=== PATIENT | female | born 1965 | race African-American/Black ===

== ENCOUNTER 2021-06-26 03:37 | Emergency (ER) | payer MEDICARE, MEDICAID, SELFPAY ==
--- NOTE | ~2021-06-26 | CT_ITS ---
EXAMINATION: CT abdomen pelvis w con EXAM DATE: 06/26/2021 06:01 INDICATION: Upper abdominal pain, nausea and vomiting. History of diverticulosis. TECHNIQUE: Spiral CT of the abdomen and pelvis was performed following intravenous injection of 100 m L Omnipaque 350. Axial, coronal and sagittal images of the abdomen and pelvis were reviewed. The do se-length product (DLP) for this examination was 1518.34 mGy-cm. The exposure was tailored according to patient size (auto mA exposure control), and iterative reconstruction (ASIR) was used as addition al dose reduction technique. There is no prior study for comparison. FINDINGS: There is a mesenteric mass measuring 2.3 cm within the central aspect of the mesentery, dif ferential diagnosis including mesenteric carcinoid, lymphadenopathy, sclerosing mesenteritis. No spic ulations or calcifications within this. No other mesenteric masses, abdominal or pelvic lymphadenopat hy. There is a single loop of small bowel which may have mild wall thickening along its mesentery, with m ild edema within the mesentery supplying this. This could be related to the mesenteric mass. The liver, spleen, adrenal glands and pancreas are unremarkable. Gallbladder is unremarkable. No bi liary obstruction. Portal and splenic veins are patent. Kidneys enhance symmetrically. There is no hydronephrosis. The uterus is not identified and has likely been surgically resected. The bladder is unremarkable. Small umbilical fat-containing hernia. The appendix is normal. There are surgical changes consistent with gastric sleeve procedure. There i s a rectosigmoid anastomosis. There is expected amount of colonic stool. No free intraperitoneal ga s. The heart is normal in size. There are no pericardial or pleural effusions. The lung bases are unremarkable. There are no osteoblastic or osteolytic lesions identified. IMPRESSION: 1. Mesenteric mass, could be carcinoid tumor with other benign or malignant possibilities include sc lerosing mesenteritis, lymphadenopathy. 2. Single loop of small bowel with mild wall thickening distal to the mesenteric mass. 3. No acute intra-abdominal findings. Case was discussed with Dr. Nikko Howard MD, patient has had multiple surgeries at [facility]. Comparing this study to those examinations would be helpful to determine interval g rowth or development of mesenteric mass, but probably does not change the differential diagnosis. Reviewed, dictated and finalized at location A. IMPRESSION: 1. Mesenteric mass, could be carcinoid tumor with other benign or malignant po ssibilities include sclerosing mesenteritis, lymphadenopathy. 2. Single loop of small bowel with mild wall thickening distal to the mesenter ic mass. 3. No acute intra-abdominal findings. Case was discussed with Dr. Nikko Howard MD, patient has had multip le surgeries at [facility]. Comparing this study to those examinati ons would be helpful to determine interval growth or development of mesenteric mass, but probably does not change the differential diagnosis.
[2021-06-26 03:39] VITALS: BP 162/92; PULSE 60; RESP 21; TEMP 36.8; O2SAT 100
--- NOTE | 2021-06-26 04:45 | PC.NURSE ---
attempted IV insertion and was unsuccessful. another RN in room attempting IV insertion.
[2021-06-26] MEDS: SODIUM CHLORIDE 0.9% IV 1,000 ML 999 ML IV CONT (04:54)
[2021-06-26] MEDS: ONDANSETRON INJ 4 MG/2 ML VIAL IV PUSH (04:55)
[2021-06-26] MEDS: HYDROmorphone HCL INJ (*CRX) 1 MG/ML SYR IV PUSH (04:57)
[2021-06-26 05:17] LABS: Basophils Percent Auto 0.5 % (0.2-1.2); Eosinophils Percent Auto 0.7 % (0-4.4); Hematocrit 42.4 % (37.0-47.0); Immature Granulocyte Absolute 0.01 K/mm3 (0.00-0.031); Immature Granulocyte Percent A 0.2 % (0-0.5); Lymphocytes Absolute Auto 1.73 K/mm3 (0.9-3.2); Lymphocytes Percent Auto 28.7 % (18.3-44.2); Mean Corpuscular HGB Conc 30.7 g/dl (32-36); Mean Corpuscular Hemoglobin 29.3 pg (26-34); Mean Corpuscular Volume 95.5 fl (80-100); Mean Platelet Volume 10.1 fl (7.4-10.4); Monocytes Absolute Auto 0.5 K/mm3 (0.1-0.6); Neutrophils Absolute Auto 3.7 K/mm3 (1.3-6.7); Neutrophils Percent Auto 60.9 % (45.5-73.1); Platelet Count Result 202 k/mm3 (150-375); Red Blood Count 4.44 M/mm3 (4.2-5.4); Red Cell Distribution Width 15.7 % (11.5-14.5)
--- NOTE | 2021-06-26 05:25 | ED.GENADULT ---
HPI - General Adult General Chief complaint: Abdominal Pain Stated complaint: abd pain Time Seen by Provider: 06/26/21 04:07 History of Present Illness HPI narrative: Patient 55-year-old female presents to emergency department complaint of abdominal pain. Patient reports she has history of diverticulitis and is actually had to have a bowel resection secondary to diverticulitis. Patient states that today she started having pain worse in the epigastrium not improved by anything reports that she had nausea and vomiting with this reports she had a normal bowel movement denies any blood in her stool. Patient states this feels similar to when she had diverticulitis in the past. Patient reports that her surgeries were done at [facility] Medications Medication Instructions Recorded Confirmed albuterol sulfate 2 mg tablet 2 mg PO Q8H 03/25/21 03/25/21 cyclobenzaprine 10 mg tablet 10 mg PO BID tablet 03/25/21 03/25/21 ferrous gluconate 324 mg (38 mg 324 mg PO DAILY 03/25/21 03/25/21 iron) tablet hydrochlorothiazide 25 mg tablet 25 mg PO DAILY 03/25/21 03/25/21 hydrocodone 10 mg-chlorpheniramine 5 ml PO Q12H PRN 03/25/21 03/25/21 8 mg/5 mL oral susp extend.rel 12hr tizanidine 2 mg capsule 2 mg PO QHS 03/25/21 03/25/21 Allergies Allergy/AdvReac Type Severity Reaction Status Date / Time fluticasone [From Flonase] Allergy Mild Unknown Verified 06/26/21 03:51 Review of Systems Review of Systems: A 10 system review of systems was completed on the patient and is negative except for what is stated in the HPI. Nursing and ancillary documentation was reviewed. [facility] Past Medical History Medical History Arthritis Asthma Diverticulitis Family History Family History Mother Hypertension Father Hypertension Social History Social History Smoking status: Never smoker Alcohol intake: never Substance use: never Exam Narrative: GENERAL: Well-appearing, well-nourished, and in no acute distress. HEAD: Normocephalic, atraumatic. EYES: PERRLA and EOMI. ENT: Nares clear, no rhinorrhea or epistaxis. Mucous membranes moist. NECK: Supple. CHEST: Clear to auscultation. No respiratory distress. HEART: Regular rate and rhythm. No murmur heard. Normal peripheral pulses. ABDOMEN: Soft, diffusely tender to palpation, nondistended, normal active bowel sounds. EXTREMITIES: Normal range of motion. No edema. SKIN: Warm, dry, no rash. NEURO: No focal deficits. Alert and oriented x3. PSYCH: Normal mood and affect. Course Course Emergency Course: CT scan shows no evidence of bowel obstruction. There is evidence of enteritis. Vital Signs Vital signs: Vital Signs Temperature 36.8 C 06/26/21 03:39 Pulse Rate 60 06/26/21 03:39 Respiratory Rate 21 H 06/26/21 03:39 Blood Pressure 162/92 H 06/26/21 03:39 Pulse Oximetry 100 06/26/21 03:39 Temperature 36.8 C 06/26/21 03:39 Pulse Rate 59 L 06/26/21 05:53 Respiratory Rate 20 06/26/21 05:53 Blood Pressure 167/87 H 06/26/21 05:53 Pulse Oximetry 100 06/26/21 05:53 Medical Decision Making Vital Signs Vital Signs: Vital Signs Temperature 36.8 C 06/26/21 03:39 Pulse Rate 60 06/26/21 03:39 Respiratory Rate 21 H 06/26/21 03:39 Blood Pressure 162/92 H 06/26/21 03:39 Pulse Oximetry 100 06/26/21 03:39 Temperature 36.8 C 06/26/21 03:39 Pulse Rate 59 L 06/26/21 05:53 Respiratory Rate 20 06/26/21 05:53 Blood Pressure 167/87 H 06/26/21 05:53 Pulse Oximetry 100 06/26/21 05:53 Lab Data Result diagrams: 06/26/21 05:11 06/26/21 05:11 Labs: Lab Results 06/26/21 06/26/21 06/26/21 Range/Units 05:11 05:11 05:21 WBC 6.0 (4.5-10.0) K/mm3 RBC 4.44 (4.2-5.4) M/mm3 Hgb 13.0 (12.0-15.0
[2021-06-26 05:28] LABS: Alanine Aminotransferase 22 U/L (4-35); Albumin Level 4.1 g/dL (3.5-5.1); Alkaline Phosphatase 77 U/L (38-126); Anion Gap 2 mmol/L (8-16); Aspartate Amino Transferase 27 U/L (14-36); Bilirubin,Total 0.4 mg/dL (0.2-1.3); Blood Urea Nitrogen 14 mg/dL (7-17); Calcium 9.3 mg/dL (8.4-10.2); Carbon Dioxide 28 mmol/L (22-30); Chloride 107 mmol/L (98-107); Estimated CRCL calculation 132 ml/min; Estimated Glomerular Filt Rate > 60; Glucose 124 mg/dL (65-110); Lipase 67 U/L (23-300); Magnesium 2.3 mg/dL (1.6-2.3); Potassium 3.9 mmol/L (3.4-5.0); Sodium 137 mmol/L (137-145)
[2021-06-26 05:39] LABS: Lactic Acid Reflex 1.1 mmol/L (0.7-2.1)
[2021-06-26 05:50] LABS: Add Urine Microscopic? NO; Appearance Urine Clear (Clear); Bilirubin Urine Negative (Negative); Blood Urine Negative (Negative); Color Urine Yellow (Yellow); Glucose Urine UA Negative (Negative); Ketones Urine Negative (Negative); Leukocyte Esterase Ur Negative LEU/UL (Negative); Nitrate Urine Negative (Negative); Protein Urine Negative (Negative); Specific Grav Ur 1.019 (1.001-1.035); Urobilinogen Urine Negative mg/dL (<2.0)
[2021-06-26 05:53] VITALS: BP 167/87; PULSE 59; RESP 20; O2SAT 100
[2021-06-26] MEDS: MORPHINE SULFATE (*CRX) 4 MG/ML INJ IV PUSH (07:00)
[2021-06-26 07:45] VITALS: BP 122/94; PULSE 60; RESP 18; O2SAT 100
== END 2021-06-26 07:45 | disposition home or self-care (01) ==
PROVIDERS: Emergency Provider Emergency Medicine; PCP Family Medicine
DX: K52.9 Noninfective gastroenteritis and colitis, unspecified (principal); R10.84 Generalized abdominal pain; J45.909 Unspecified asthma, uncomplicated; M19.90 Unspecified osteoarthritis, unspecified site; R19.09 Other intra-abdominal and pelvic swelling, mass and lump; Z90.49 Acquired absence of other specified parts of digestive tract; Z98.84 Bariatric surgery status
CPT/HCPCS: 36415; 74177; 80053; 81003; 83605; 83690; 83735; 85025; 96361; 96374; 96375; 99284; 99285; J1170; J2270; J2405; J7030; Q9967

== ENCOUNTER 2021-12-01 10:09 | Emergency (ER) | payer MEDICARE, MEDICAID, SELFPAY ==
--- NOTE | ~2021-12-01 | CT_ITS ---
EXAMINATION: CT abdomen pelvis w con DATE: 12/01/2021 13:58 INDICATION: Epigastric pain. Previous gastric sleeve surgery. History of diverticulitis. TECHNIQUE: Computed tomography (CT) of the abdomen and pelvis was performed with 100 cc Omnipaque 350 intravenous contrast. The dose-length product was 1395.36 mGy-cm. Automated exposure control and ite rative reconstruction technique were employed. COMPARISON: CT dated 06/26/2021 FINDINGS: Lung bases are unremarkable. No significant pleural or pericardial effusion. Heart size nor mal. The liver, spleen, pancreas, adrenal glands and kidneys are unremarkable. Gallbladder is present. No significant vascular abnormalities. There are are surgical changes of the anterior abdominal wall con sistent with previous laparotomy with multiple small hernias containing fat. There is mild stranding of the mesentery, likely postsurgical. There are surgical changes with prior gastric sleeve surgery. Nonobstructive bowel gas pattern. Colonic diverticulosis. There is a distal colonic surgical anastomo sis. No evidence for acute diverticulitis. No free air or free fluid. There is mild lower thoracic an d lumbar spondylosis. IMPRESSION: 1. No acute abdominal abnormality. 2: Postoperative changes likely from soft tissue nodule resection in the mesentery seen on prior exam ination. There are multiple small associated ventral hernias along the incision line containing fat. Reviewed, dictated and finalized at location A. IMPRESSION: 1. No acute abdominal abnormality. 2: Postoperative changes likely from soft tissue nodule resection in the mesent luciana seen on prior examination. There are multiple small associated ventral matthias ias along the incision line containing fat.
[2021-12-01 10:35] VITALS: BP 124/82; PULSE 60; RESP 16; TEMP 36.3; O2SAT 100
[2021-12-01 11:20] LABS: Basophils Percent Auto 0.3 % (0.2-1.2); Eosinophils Absolute Auto 0.1 K/mm3 (0-0.3); Eosinophils Percent Auto 1.3 % (0-4.4); Hematocrit 43.1 % (37.0-47.0); Hemoglobin 13.6 g/dL (12.0-15.0); Immature Granulocyte Absolute 0.02 K/mm3 (0.00-0.031); Immature Granulocyte Percent A 0.3 % (0-0.5); Lymphocytes Absolute Auto 2.21 K/mm3 (0.9-3.2); Lymphocytes Percent Auto 31.8 % (18.3-44.2); Mean Corpuscular HGB Conc 31.6 g/dl (32-36); Mean Corpuscular Volume 95.1 fl (80-100); Mean Platelet Volume 9.8 fl (7.4-10.4); Monocytes Absolute Auto 0.6 K/mm3 (0.1-0.6); Monocytes Percent Auto 9.1 % (2.6-8.5); Neutrophils Percent Auto 57.2 % (45.5-73.1); Platelet Count Result 231 k/mm3 (150-375); Red Blood Count 4.53 M/mm3 (4.2-5.4); Red Cell Distribution Width 14.1 % (11.5-14.5)
[2021-12-01 11:23] LABS: Add Urine Microscopic? NO; Appearance Urine Clear (Clear); Bilirubin Urine Negative (Negative); Blood Urine Negative (Negative); Color Urine Straw (Yellow); Glucose Urine UA Negative (Negative); Ketones Urine Negative (Negative); Leukocyte Esterase Ur Negative LEU/UL (Negative); Nitrate Urine Negative (Negative); Protein Urine Negative (Negative); Urobilinogen Urine Negative mg/dL (<2.0)
[2021-12-01 11:29] LABS: Alanine Aminotransferase 51 U/L (4-35); Alkaline Phosphatase 102 U/L (38-126); Anion Gap 4 mmol/L (8-16); Aspartate Amino Transferase 34 U/L (14-36); Bilirubin,Total 0.6 mg/dL (0.2-1.3); Blood Urea Nitrogen 16 mg/dL (7-17); Calcium 8.8 mg/dL (8.4-10.2); Carbon Dioxide 32 mmol/L (22-30); Chloride 102 mmol/L (98-107); Estimated CRCL calculation 111 ml/min; Estimated Glomerular Filt Rate > 60; Glucose 92 mg/dL (65-110); Lipase 101 U/L (23-300); Potassium 4.1 mmol/L (3.4-5.0); Sodium 138 mmol/L (137-145)
--- NOTE | 2021-12-01 12:25 | ED.ABDPAIN ---
HPI - Abdominal Pain General Chief Complaint: Abdominal Pain Stated Complaint: epigastric pain since yesterday Time Seen by Provider: 12/01/21 12:24 Source: patient Mode of arrival: ambulatory Limitations: no limitations History of Present Illness HPI narrative: Patient is 55 years old -[place] female presented to the ED complaining of epigastric pulling kind of pain, intermittent, worse with sitting and standing, better laying down flat. History of gastric sleeve 1 year ago. Lymphedema. Patient does note smoke or drink or uses drugs. Related Data Home Medications Medication Instructions Recorded Confirmed albuterol sulfate 2 mg tablet 2 mg PO Q8H 03/25/21 03/25/21 ferrous gluconate 324 mg (38 mg 324 mg PO DAILY 03/25/21 03/25/21 iron) tablet hydrochlorothiazide 25 mg tablet 25 mg PO DAILY 03/25/21 03/25/21 tizanidine 2 mg capsule 2 mg PO QHS 03/25/21 03/25/21 Allergies Allergy/AdvReac Type Severity Reaction Status Date / Time fluticasone [From Flonase] Allergy Mild Unknown Verified 06/26/21 03:51 Review of Systems Review of Systems: CONSTITUTIONAL: Denies fever, chills, or sweats. EYES: Denies visual changes, redness, or discharge. ENT: Denies rhinorrhea, congestion, sore throat, or otalgia. CARDIOVASCULAR: Denies chest pain, palpitations, or edema. RESPIRATORY: Denies cough or dyspnea. GASTROINTESTINAL: Denies abdominal pain, nausea, vomiting, or diarrhea. GENITOURINARY: Denies dysuria or hematuria. SKIN: Denies rash or itching. MUSCULOSKELETAL: Denies back pain, joint pain, or myalgia. NEUROLOGIC: Denies headache, numbness, or weakness. PSYCHIATRIC: Denies anxiety or depression. PMFSH Past Medical History Medical History Arthritis Asthma Diverticulitis Family History Family History Mother Hypertension Father Hypertension Social History Social History Smoking status: Never smoker Alcohol intake: never Substance use: never Exam Narrative: General appearance: Well-developed, well-nourished Skin: Normal color Head: Normocephalic, nontraumatic Eyes: Clear conjunctiva ENT: Oropharynx normal, ears normal, nose normal Neck: Supple, nontender Chest and respiratory: Airway patent, no respiratory distress, no accessory muscle use Heart: Regular rate/rhythm Abdomen: Soft, masslike feeling and diffuse tenderness left upper quadrant., no organomegaly, quiet bowel sounds Vascular: Normal peripheral pulses, normal capillary refill. 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 Differential diagnosis as below Differential Diagnosis Differential diagnosis: Likely abdominal pain, constipation, diverticulitis, pancreatitis, small bowel obstruction and other (Gastric bypass disorder) Lab Data Result diagrams: 12/01/21 11:10 12/01/21 11:10 Labs: Lab Results 12/01/21 12/01/21 12/01/21 Range/Units 11:10 11:10
[2021-12-01] MEDS: SODIUM CHLORIDE 0.9% IV 1,000 ML 999 ML IV CONT (12:54)
[2021-12-01 13:37] VITALS: BP 140/99; PULSE 109; RESP 16; O2SAT 98
== END 2021-12-01 17:21 | disposition home or self-care (01) ==
PROVIDERS: Emergency Medicine; Emergency Provider Emergency Medicine; PCP Family Medicine
DX: R10.13 Epigastric pain (principal); M19.90 Unspecified osteoarthritis, unspecified site; J45.909 Unspecified asthma, uncomplicated; K43.9 Ventral hernia without obstruction or gangrene
CPT/HCPCS: 36415; 74177; 80053; 81003; 83690; 85025; 96360; 99284; J7030; Q9967

== ENCOUNTER 2023-06-22 08:40 | Emergency (ER) | payer MEDICARE, MEDICAID, SELFPAY ==
--- NOTE | ~2023-06-22 | US_ITS ---
EXAMINATION:US venous doppler LE RT INDICATION:History of fracture. Evaluate for DVT. TECHNIQUE: Multiple grayscale, color flow and Doppler images of the right lower extremity deep venous systems were obtained and reviewed. COMPARISON:No prior studies for comparison. FINDINGS: The common femoral, superficial femoral and popliteal veins demonstrate normal respiratory variation, augmentation and compressibility. Color flow is also seen within the posterior tibial, pe roneal, greater saphenous and profunda veins. IMPRESSION: 1: No lower extremity deep venous thrombosis. Reviewed, dictated and finalized at location L.
--- NOTE | ~2023-06-22 | XR_ITS ---
EXAMINATION: XR foot RT 2V DATE: 06/22/2023 09:58 INDICATION: Right foot injury and swelling and redness. TECHNIQUE: 2 views of right foot were obtained. COMPARISON: None. FINDINGS: Bone alignment is normal. There is a nondisplaced transverse fracture of proximal metaphysi s of fifth proximal phalanx with callus formation. Joint spaces are normal. There is an enthesophyte at plantar aspect of calcaneal tuberosity. IMPRESSION: 1. Healing fracture of fifth proximal phalanx. Reviewed, dictated and finalized at location A.
--- NOTE | ~2023-06-22 | XR_ITS ---
AP and lateral views of the right tibia/fibula Clinical History: Trauma Findings: No acute fracture or dislocation is seen. Osseous alignment is anatomic. Joint spaces are p reserved without significant erosive or degenerative change. There is marked, diffuse soft tissue lilly ma, with possible blisters or superficial fluid collections. There are several scattered soft tissue calcifications. Impression: No osseous or articular abnormality. Extensive soft tissue edema, nonspecific, with possible blisters or superficial fluid collections. Co rrelate with physical exam. Soft tissue calcifications could relate to chronic venous stasis. Reviewed, dictated and finalized at location . Impression: No osseous or articular abnormality. Extensive soft tissue edema, nonspecific, with possible blisters or superficial fluid collections. Correlate with physical exam. Soft tissue calcifications co uld relate to chronic venous stasis.
--- NOTE | ~2023-06-22 | XR_ITS ---
EXAMINATION: XR tibia fibula LT 2V DATE: 06/22/2023 09:58 INDICATION: Left lower leg injury and swelling and redness. TECHNIQUE: 2 views of left tibia and fibula were obtained. COMPARISON: None. FINDINGS: Bone alignment is normal. No fracture. There is mild knee joint osteoarthritis. There is mo derate midfoot osteoarthritis. Calcifications overlie the subcutaneous fat of the lower leg. IMPRESSION: 1. Polyarticular osteoarthritis. Reviewed, dictated and finalized at location A.
[2023-06-22 08:42] VITALS: BP 105/77; PULSE 78; RESP 17; TEMP 36.6; O2SAT 99
[2023-06-22 08:48] VITALS: BP 134/81; PULSE 74; RESP 16; O2SAT 98
[2023-06-22] MEDS: HYDROcodone/acetaminophen (*CRX) 7.5-325 MG TABLET 1 TAB PO (10:02)
--- NOTE | 2023-06-22 10:19 | ED.GENADULT ---
HPI - General Adult General Chief complaint: Extremity Problem,Nontraumatic <Yuri Zamora PA-C - Last Filed: 06/22/23 16:03> Stated complaint: R leg pain <Yuri Zamora PA-C - Last Filed: 06/22/23 16:03> Time Seen by Provider: 06/22/23 09:03 <Yuri Zamora PA-C - Last Filed: 06/22/23 16:03> Source: patient <KELLIE Douglas Last Filed: 06/22/23 16:03> Mode of arrival: ambulatory <KELLIE Douglas Last Filed: 06/22/23 16:03> Limitations: no limitations <KELLIE Douglas Last Filed: 06/22/23 16:03> History of Present Illness HPI narrative: This is a 57-year-old female who presents to the ED with chief complaint of right leg pain since nearly 1 week ago. Reports that she had an injury in which [place] the park. She fell onto the ground and hurt the bilateral lower extremities. She reports increasing pain in the right lower extremity specifically since injury. She was seen at another facility 5 days ago and reports she had negative x-rays there. She has been trying to treat pain with Tylenol with minimal relief. Denies numbness, weakness, any further site of pain or injury. <Yuri Zamora PA-C - Last Filed: 06/22/23 16:03> Related Data Home medications: Home Medications Medication Instructions Recorded Confirmed albuterol sulfate 2 mg tablet 2 mg PO Q8H 03/25/21 03/25/21 ferrous gluconate 324 mg (38 mg 324 mg PO DAILY 03/25/21 03/25/21 iron) tablet hydrochlorothiazide 25 mg tablet 25 mg PO DAILY 03/25/21 03/25/21 tizanidine 2 mg capsule 2 mg PO QHS 03/25/21 03/25/21 <KELLIE Douglas Last Filed: 06/22/23 16:03> Allergies/adverse reactions: Allergies Allergy/AdvReac Type Severity Reaction Status Date / Time fluticasone [From Flonase] Allergy Mild Unknown Verified 06/22/23 08:45 atorvastatin AdvReac Headache Verified 06/22/23 09:34 <Yuri Zamora PA-C - Last Filed: 06/22/23 16:03> Review of Systems Review of Systems: All systems as dictated in HPI <Yuri Zamora PA-C - Last Filed: 06/22/23 16:03> PMFSH Past Medical History Medical History: Medical History Arthritis Asthma Diverticulitis <Yuri Zamora PA-C - Last Filed: 06/22/23 16:03> Family History Family History: Family History Mother Hypertension Father Hypertension <Yuri Zamora PA-C - Last Filed: 06/22/23 16:03> Social History Social History: Social History Smoking status: Never smoker Alcohol intake: never Substance use: never <Yuri Zamora PA-C - Last Filed: 06/22/23 16:03> Exam Narrative: GENERAL: Well-appearing, well-nourished, and in no acute distress. HEAD: Normocephalic, atraumatic. EYES: PERRLA and EOMI. ENT: Nares clear, no rhinorrhea or epistaxis. Mucous membranes moist. Oropharynx without tonsillar hypertrophy exudate or other lesions. NECK: Supple. No adenopathy or masses. CHEST: No respiratory distress. Clear to auscultation. No wheezes rales or rhonchi HEART: Regular rate and rhythm. No murmur heard. Normal peripheral pulses. ABDOMEN: Soft, nontender, nondistended, normal active bowel sounds. MSK: Chronically appearing edematous bilateral lower extremities. Right lower extremity: Tenderness throughout the right tib-fib area. Tenderness in the right foot distally. Neurovascularly intact distally. Soft compartments throughout the extremity. No deformity Left lower extremity: Tenderness throughout the left tib-fib area as well. No tenderness throughout the left foot. No deformity. Soft compartments. SKIN: Bruising throughout the right foot, right lower extremity. Old blisters noted to the right lower extremity. NEURO: Alert and oriented x3. No focal deficits. PSYCH: Normal mood and affect. <Yuri Zamora PA-C - Last Fi
[2023-06-22 10:55] LABS: Basophils Absolute Auto 0.1 K/mm3 (0.0-0.1); Basophils Percent Auto 0.6 % (0.2-1.2); Eosinophils Absolute Auto 0.1 K/mm3 (0-0.3); Eosinophils Percent Auto 1.8 % (0-4.4); Hematocrit 40.6 % (37.0-47.0); Hemoglobin 12.2 g/dL (12.0-15.0); Immature Granulocyte Absolute 0.02 K/mm3 (0.00-0.031); Immature Granulocyte Percent A 0.3 % (0-0.5); Lymphocytes Absolute Auto 2.48 K/mm3 (0.9-3.2); Mean Corpuscular Hemoglobin 28.9 pg (26-34); Mean Corpuscular Volume 96.2 fl (80-100); Mean Platelet Volume 9.7 fl (7.4-10.4); Monocytes Absolute Auto 0.8 K/mm3 (0.1-0.6); Monocytes Percent Auto 10.1 % (2.6-8.5); Neutrophils Absolute Auto 4.5 K/mm3 (1.3-6.7); Neutrophils Percent Auto 56.2 % (45.5-73.1); Platelet Count Result 238 k/mm3 (150-375); Red Blood Count 4.22 M/mm3 (4.2-5.4); Red Cell Distribution Width 15.2 % (11.5-14.5)
[2023-06-22 11:18] LABS: Alanine Aminotransferase 15 U/L (6-35); Albumin Level 3.9 g/dL (3.5-5.1); Alkaline Phosphatase 80 U/L (38-126); Anion Gap 7 mmol/L (8-16); Aspartate Amino Transferase 21 U/L (14-36); Bilirubin,Total 0.8 mg/dL (0.2-1.3); Blood Urea Nitrogen 21 mg/dL (7-17); CRP 1.3 mg/dL (<1.0); Calcium 8.7 mg/dL (8.4-10.2); Carbon Dioxide 28 mmol/L (22-30); Chloride 102 mmol/L (98-107); Estimated CRCL calculation 102 ml/min; Estimated Glomerular Filt Rate > 60; Glucose 73 mg/dL (65-110); Potassium 4.5 mmol/L (3.4-5.0); Sodium 137 mmol/L (137-145)
[2023-06-22 11:27] VITALS: BP 138/83; PULSE 67; RESP 17; O2SAT 100
[2023-06-22] MEDS: ceFAZolin 1 GM/NS 50 ML 1 GM/50 ML BAG IVPB (11:45)
[2023-06-22] MEDS: MORPHINE SULFATE (*CRX) 4 MG/ML INJ IV PUSH (11:45)
[2023-06-22 12:16] VITALS: BP 131/95; PULSE 66; RESP 16; O2SAT 100
== END 2023-06-22 12:45 | disposition home or self-care (01) ==
PROVIDERS: Emergency Provider Physician Assistant; PCP Family Medicine
DX: L03.90 Cellulitis, unspecified (principal); S92.501A Displaced unspecified fracture of right lesser toe(s), initial encounter for closed fracture; M19.90 Unspecified osteoarthritis, unspecified site; J45.909 Unspecified asthma, uncomplicated; W19.XXXA Unspecified fall, initial encounter
CPT/HCPCS: 36415; 73590; 73620; 80053; 85025; 86140; 93971; 96365; 96375; 99284; A9270; J0690; J2270

== ENCOUNTER 2023-06-25 03:37 | Inpatient (IN) | payer MEDICARE, MEDICAID, SELFPAY ==
--- NOTE | ~2023-06-25 | CT_ITS ---
EXAMINATION: CT LE RT w con DATE: 06/29/2023 09:46 INDICATION: Right lower leg cellulitis with drainage TECHNIQUE: High resolution computed tomography (CT) of the right lower leg from the knee through the ankle was performed with 100 mL Omnipaque-350 intravenous contrast. Additional sagittal and coronal r econstructions were performed. Automated exposure control and iterative reconstruction technique were employed. The dose-length product was 969.44 mGy-cm. COMPARISON: Radiographs dated 06/22/2023 FINDINGS: Bone alignment is normal. No fracture. Mild osteoarthritis at the medial and lateral components of th e right knee and at the right ankle. No knee or ankle joint effusion. Small amount of atherosclerotic plaque without hemodynamic significant stenosis along the arteries of the right calf. The anterior t ibial arteries atretic with the dorsalis pedis artery supplied via the peroneal artery. There is also runoff of the posterior tibial artery below the ankle. There is skin thickening and underlying stran ding in the subcutaneous fat along the right calf consistent with provided history of cellulitis. The re are few focal lenticular regions of the subdermal soft tissue density, the largest at the anterola teral distal calf measuring 8.5 x 7.5 cm in extent and up to 2.8 cm thickness. It is unclear whether this represents soft tissue or potentially collection of complex fluid including hemorrhage. There ar e smaller regions of low-density on a similar smaller region at the posterior medial aspect of the di stal calf. There are however no organized peripherally enhancing abscesses. No soft tissue gas. The d eeper musculature compartments are unremarkable. There are multiple heterotopic ossicles the subcutan eous tissues of the right calf and visualized medial aspect of the contralateral left calf likely seq uela of fat necrosis. IMPRESSION: 1. Cellulitis with several focal lenticular regions of soft tissue density contiguous with the skin s urface of the right calf. Unclear whether this represents thickened soft tissue or complex fluid incl uding hematomas. Neoplasm would be unlikely given the multiplicity. Line 2. No soft tissue gas to suggest necrotizing fasciitis or organized peripherally enhancing abscess id entified. Reviewed, dictated and finalized at location A. IMPRESSION: 1. Cellulitis with several focal lenticular regions of soft tissue density cont iguous with the skin surface of the right calf. Unclear whether this represents thickened soft tissue or complex fluid including hematomas. Neoplasm would be unlikely given the multiplicity. Line 2. No soft tissue gas to suggest necrotizing fasciitis or organized peripherall y enhancing abscess identified.
--- NOTE | ~2023-06-25 | US_ITS ---
EXAMINATION: US venous doppler LE RT DATE: 06/25/2023 08:22 INDICATION: Right lower limb edema. TECHNIQUE: Grayscale ultrasound images without and with compression and Doppler ultrasound images of the right lower extremity veins were obtained. COMPARISON: Ultrasound 06/22/2023 FINDINGS: The visualized portions of right common femoral vein, profunda (deep) femoral vein, femoral vein, pop liteal vein, and greater saphenous vein outflow are patent. The calf veins are not evaluated due to t he patient's pain tolerance. IMPRESSION: 1. No deep venous thrombosis. Note that the calf veins were not evaluated at the patient's request b ecause of pain. Reviewed, dictated and finalized at location A. IMPRESSION: 1. No deep venous thrombosis. Note that the calf veins were not evaluated at t he patient's request because of pain.
[2023-06-25 03:41] VITALS: BP 147/82; PULSE 73; RESP 18; TEMP 36.9; O2SAT 100
[2023-06-25 06:23] LABS: Basophils Absolute Auto 0.1 K/mm3 (0.0-0.1); Eosinophils Absolute Auto 0.1 K/mm3 (0-0.3); Eosinophils Percent Auto 2.1 % (0-4.4); Hematocrit 41.8 % (37.0-47.0); Hemoglobin 12.7 g/dL (12.0-15.0); Immature Granulocyte Absolute 0.01 K/mm3 (0.00-0.031); Immature Granulocyte Percent A 0.2 % (0-0.5); Lymphocytes Percent Auto 30.8 % (18.3-44.2); Mean Corpuscular HGB Conc 30.4 g/dl (32-36); Mean Corpuscular Hemoglobin 28.7 pg (26-34); Mean Corpuscular Volume 94.6 fl (80-100); Monocytes Absolute Auto 0.5 K/mm3 (0.1-0.6); Monocytes Percent Auto 8.6 % (2.6-8.5); Neutrophils Absolute Auto 3.5 K/mm3 (1.3-6.7); Neutrophils Percent Auto 57.3 % (45.5-73.1); Platelet Count Result 244 k/mm3 (150-375); Red Blood Count 4.42 M/mm3 (4.2-5.4); Red Cell Distribution Width 14.7 % (11.5-14.5); White Blood Count 6.2 K/mm3 (4.5-10.0)
[2023-06-25 06:28] LABS: Alanine Aminotransferase 14 U/L (6-35); Albumin Level 3.8 g/dL (3.5-5.1); Alkaline Phosphatase 91 U/L (38-126); Anion Gap 4 mmol/L (8-16); Aspartate Amino Transferase 20 U/L (14-36); Bilirubin,Total 0.5 mg/dL (0.2-1.3); Blood Urea Nitrogen 23 mg/dL (7-17); Calcium 8.7 mg/dL (8.4-10.2); Carbon Dioxide 31 mmol/L (22-30); Chloride 104 mmol/L (98-107); Estimated CRCL calculation 117 ml/min; Estimated Glomerular Filt Rate > 60; Glucose 101 mg/dL (65-110); Potassium 3.6 mmol/L (3.4-5.0); Sodium 139 mmol/L (137-145)
--- NOTE | 2023-06-25 07:44 | ED.EXTPRO ---
HPI - Extremity Problem General Chief complaint: Extremity Problem,Nontraumatic Stated complaint: extremity problem Time Seen by Provider: 06/25/23 06:54 History of Present Illness HPI Narrative: 57-year-old female presented to the emergency department for evaluation of persistent right leg pain. Patient had initial injury about 2 weeks ago when she fell at a park. Patient then states she has had a worsening right lower extremity swelling and pain. Patient was seen in the ED a few days ago and diagnosed with cellulitis. Patient was told if she had worsening symptoms she needed to present to the ED for evaluation. Patient states she has developed blisters on the leg and has had significant worsening of the swelling and pain. Related Data Home Medications Medication Instructions Recorded Confirmed albuterol sulfate 2 mg tablet 2 mg PO Q8H 03/25/21 06/25/23 ferrous gluconate 324 mg (38 mg 324 mg PO DAILY 03/25/21 06/25/23 iron) tablet hydrochlorothiazide 25 mg tablet 25 mg PO DAILY 03/25/21 06/25/23 cyclobenzaprine 10 mg tablet 10 mg PO DAILY 06/25/23 06/25/23 furosemide 40 mg tablet (Lasix) 40 mg PO DAILY 06/25/23 06/25/23 multivitamin (Daily Multi-Vitamin 1 tablet PO BID 06/25/23 06/25/23 tablet) potassium chloride 20 mEq 20 meq PO DAILY 06/25/23 06/25/23 tablet,extended release (K-Tab) Allergies Allergy/AdvReac Type Severity Reaction Status Date / Time fluticasone [From Flonase] Allergy Mild Unknown Verified 06/25/23 13:40 atorvastatin AdvReac Headache Verified 06/25/23 13:40 Review of Systems Review of Systems: All systems reviewed & are unremarkable except as noted in HPI and below PMFSH Past Medical History Medical History (Updated 06/25/23 @ 18:07 by Sahil Patel MD) Arthritis Asthma Diverticulitis Esophageal perforation Hypertension Neuroendocrine carcinoma Surgical History Surgical History (Updated 06/25/23 @ 13:01 by Bhavya Jefferson PA-C) History of colon resection For neuroendocrine carcinoma. History of esophageal surgery Repair of accidental perforation during procedure. History of sleeve gastrectomy Family History Family History Mother Hypertension Father Hypertension Social History Social History (Updated 06/25/23 @ 13:02 by Bhavya Jefferson PA-C) Social History: Surrogate medical decision maker: Eladio Garcia, son. Code status: Full code. Smoking status: Never smoker Alcohol intake: never Substance use: never Substance use type: does not use Lack of Transportation: No Lack of Food: Never True Current Housing: I Have Housing Concerned About Future Housing: No Difficulty Paying Gas/Electric Bills: No Difficulty Paying for Meds: No Currently Unemployed: No Education: Don't Know Difficulty w/ Childcare or Family Care: No Spiritual care concerns: No Exam Narrative: APPEARANCE: Well appearing, no pain, no distress, well-nourished. HEAD: normocephalic, atraumatic. EYES: PERRLA/EOMI, conjunctivae clear. NOSE: Normal no drainage EARS:TMS clear with good light reflex. THROAT: Pharynx clear, no exudate. NECK: Supple. No adenopathy, no masses. RESPIRATORY: Airway patent, respirations nonlabored. Clear to auscultation bilaterally, no rales, rhonchi, wheezing. CARDIOVASCULAR: Regular rate and rhythm without murmurs rubs or gallops. ABDOMINAL: Soft, nontender, nondistended, normal bowel sounds MUSCULOSKELETAL: Extensive right lower extremity edema with erythema and blood blisters NEURO: Alert. Cranial nerves II through XII intact. Grossly intact Course Course Emergency Course: 57-year-old female presented the emergency department for evaluation of right lower extremity erythema and blistering. Patient's ultrasound was negative for DVT. Patient was started on antibiotics for suspected worsening cellulitis. Case was discussed with the hospitalist and patient was ac
[2023-06-25] MEDS: HYDROcodone/acetaminophen (*CRX) 5-325 MG TABLET 1 TAB PO (08:34)
[2023-06-25 08:59] LABS: INR 1.1
[2023-06-25 09:09] LABS: Partial Thromboplastin Time 32.6 SECONDS (22.3-36.8)
--- NOTE | 2023-06-25 10:40 | PC.NURSE ---
Attempted to get blood specimen from pt several times by different staff members. Vascular access called to try.
[2023-06-25 11:13] VITALS: BP 129/83; PULSE 71; RESP 20; TEMP 36.7; O2SAT 100
[2023-06-25] MEDS: ceFAZolin 1 GM/NS 50 ML 1 GM/50 ML BAG IVPB ×3 (11:43→23:57)
[2023-06-25] MEDS: HYDROmorphone HCL INJ (*CRX) 1 MG/ML SYR 0.5 MG IV PUSH (12:00)
[2023-06-25 12:15] VITALS: BP 120/50; PULSE 76; RESP 16; TEMP 36.2; O2SAT 99
--- NOTE | 2023-06-25 12:49 | ADMGEN ---
This patient, Tripp Garcia, was admitted to [facility] Surg Room 303-01. Patient/family oriented to hospital policies and general routines including ID bracelet, bed and alarms, visiting hours, pain management, procedures, bathroom and other care routines, personal items, smoking policy, room service/diet, and visiting hours. Information on how to activate the Rapid Response Team has been discussed. Patient/Family are encouraged to report perceived risks to care and to ask questions if they do not understand what they are told or what they should do.
--- NOTE | 2023-06-25 12:53 | PM.IMHP ---
H&P: HPI History of Present Illness Date/Time: 06/25/23 12:50 Chief Complaint: Worsening cellulitis in the right leg. Narrative: This is a 57-year-old female with hypertension who presented to the emergency department via private vehicle for evaluation of worsening cellulitis in the right leg. The patient provides the following history. Approximately 2 weeks ago she fell at a park and had imaging done at and outside facility which unremarkable. About a week thereafter she was seen in this ED with worsening pain at which time she was found to have a healing fracture of the right 5th proximal phalanx. There were concerns for cellulitis of the right lower leg as well and she was prescribed Augmentin. Despite the antibiotic she continues to have increasing pain and swelling in the leg and she reports several blood blisters about the leg which have been increasing in size. She denies fever, chills sweats, nausea, and vomiting. No history of MRSA. She was afebrile on arrival to the ED with stable vital signs. WBC count was normal. Right lower extremity venous Doppler ultrasound was negative for DVT though caps were not evaluated at the patient's request due to pain. She received a dose cefazolin and she is being admitted in this setting for further IV antibiotics. Review of Systems Review of Systems: Twelve systems were reviewed and are negative except for as per HPI. [facility] [place] Past Medical History Medical History Arthritis Asthma Diverticulitis Esophageal perforation Hypertension Neuroendocrine carcinoma Surgical History Surgical History History of colon resection For neuroendocrine carcinoma. History of esophageal surgery Repair of accidental perforation during procedure. History of sleeve gastrectomy Family History Family History Mother Hypertension Father Hypertension Social History Social History (Updated 06/25/23 @ 20:31 by Bhavya Jefferson PA-C) Social History: Surrogate medical decision maker: Eladio Garcia (son) or Altagracia Gino (mother). Code status: Full code. Smoking status: Never smoker Alcohol intake: never Substance use: never Substance use type: does not use Lack of Transportation: No Lack of Food: Never True Current Housing: I Have Housing Concerned About Future Housing: No Difficulty Paying Gas/Electric Bills: No Difficulty Paying for Meds: No Currently Unemployed: No Education: Don't Know Difficulty w/ Childcare or Family Care: No Spiritual care concerns: No Meds Home Medications and Allergies Home Medications Medication Instructions Recorded Confirmed Type albuterol sulfate 2 mg tablet 2 mg PO Q8H 03/25/21 06/25/23 History ferrous gluconate 324 mg (38 mg 324 mg PO DAILY 03/25/21 06/25/23 History iron) tablet hydrochlorothiazide 25 mg tablet 25 mg PO DAILY 03/25/21 06/25/23 History hydrocodone 5 mg-acetaminophen 325 1 tablet PO Q6H PRN pain 3 days 06/26/21 06/25/23 Rx mg tablet #12 tabs oxycodone-acetaminophen 5 mg-325 1 tablet PO Q6H PRN pain 3 days 06/26/21 06/25/23 Rx mg tablet (Endocet) #12 tabs dicyclomine 20 mg tablet 20 mg PO QID #20 tabs 12/01/21 06/25/23 Rx cyclobenzaprine 10 mg tablet 10 mg PO DAILY 06/25/23 06/25/23 History furosemide 40 mg tablet (Lasix) 40 mg PO DAILY 06/25/23 06/25/23 History multivitamin (Daily Multi-Vitamin 1 tablet PO BID 06/25/23 06/25/23 History tablet) potassium chloride 20 mEq 20 meq PO DAILY 06/25/23 06/25/23 History tablet,extended release (K-Tab) Allergies Allergy/AdvReac Type Severity Reaction Status Date / Time fluticasone [From Flonase] Allergy Mild Unknown Verified 06/25/23 13:40 atorvastatin AdvReac Headache Verified 06/25/23 13:40 Vital Signs Vital Signs - 24 hr 06/25/23 03:41 06/25/23 11:13 Temperature 98.
[2023-06-25 14:00] VITALS: BP 118/80; PULSE 73; RESP 14; TEMP 36.3; O2SAT 98
[2023-06-25] MEDS: ENOXAPARIN 40 MG/0.4 ML SYRINGE SUB-Q (17:23)
[2023-06-25 18:17] VITALS: PULSE 73; RESP 14; O2SAT 98
[2023-06-25] MEDS: traMADol HCL (*CRX) 50 MG TABLET PO (18:36)
[2023-06-25] MEDS: MORPHINE SULFATE (*CRX) 2 MG/ML INJ IV PUSH (20:52)
[2023-06-25 22:00] VITALS: BP 131/70; PULSE 85; RESP 18; TEMP 36.8; O2SAT 98
[2023-06-25] MEDS: HYDROcodone/acetaminophen (*CRX) 10-325 MG TABLET 1 TAB PO (22:07)
[2023-06-25] MEDS: DICYCLOMINE HCL 10 MG CAPSULE 20 MG PO (22:12)
[2023-06-26] MEDS: ACETAMINOPHEN 325 MG TABLET 650 MG PO (00:01)
[2023-06-26] MEDS: MORPHINE SULFATE (*CRX) 2 MG/ML INJ IV PUSH ×4 (01:17→21:33)
[2023-06-26 06:00] VITALS: BP 145/95; PULSE 70; RESP 18; TEMP 36.2; O2SAT 100
[2023-06-26 06:18] LABS: Hematocrit 38.2 % (37.0-47.0); Hemoglobin 11.2 g/dL (12.0-15.0); Mean Corpuscular HGB Conc 29.3 g/dl (32-36); Mean Corpuscular Hemoglobin 28.5 pg (26-34); Mean Corpuscular Volume 97.2 fl (80-100); Mean Platelet Volume 9.1 fl (7.4-10.4); Platelet Count Result 213 k/mm3 (150-375); Red Blood Count 3.93 M/mm3 (4.2-5.4); Red Cell Distribution Width 14.7 % (11.5-14.5); White Blood Count 5.5 K/mm3 (4.5-10.0)
[2023-06-26 06:31] LABS: Anion Gap 3 mmol/L (8-16); Blood Urea Nitrogen 13 mg/dL (7-17); Calcium 8.3 mg/dL (8.4-10.2); Carbon Dioxide 31 mmol/L (22-30); Chloride 103 mmol/L (98-107); Estimated CRCL calculation 138 ml/min; Estimated Glomerular Filt Rate > 60; Glucose 91 mg/dL (65-110); Potassium 3.9 mmol/L (3.4-5.0); Sodium 137 mmol/L (137-145)
[2023-06-26] MEDS: MULTIVITAMINS THERAPEUTIC TAB (*BKC) 1 TABLET PO ×2 (09:49→16:54)
[2023-06-26] MEDS: POTASSIUM CHLORIDE 20 MEQ ER TABLET PO (09:50)
[2023-06-26] MEDS: hydroCHLOROthiazide 25 MG TABLET PO (09:51)
[2023-06-26] MEDS: CYCLOBENZAPRINE HCL 10 MG TABLET PO (09:51)
[2023-06-26] MEDS: ENOXAPARIN 40 MG/0.4 ML SYRINGE SUB-Q (09:51)
[2023-06-26] MEDS: FERROUS GLUCONATE 324 MG TABLET PO (09:51)
[2023-06-26] MEDS: DICYCLOMINE HCL 10 MG CAPSULE 20 MG PO ×4 (09:51→21:27)
[2023-06-26] MEDS: ceFAZolin 1 GM/NS 50 ML 1 GM/50 ML BAG IVPB ×2 (09:52→16:55)
--- NOTE | 2023-06-26 11:30 | PM.IMPN ---
Progress Note: A&P Assessment and Plan (1) Cellulitis of right leg: Code(s): L03.115 - Cellulitis of right lower limb Status: Acute (2) Hypertension: Code(s): I10 - Essential (primary) hypertension Status: Acute (3) Obesity (BMI 35.0-39.9 without comorbidity): Code(s): E66.9 - Obesity, unspecified Status: Acute Plan 57F w/ PMH HTN presents with RLE swelling on 06/25. Admitted for cellulitis refractory to augmentin outpatient. 1) cellulitis of RLE, non purulent - ctm white count - cefazolin started on 06/25. worsened on 06/26. add vancomycin. f/u blood cultures 2) right foot fracture, 5th phalanx - healing. WBAT FEN: cardiac diet, saline lock IV GI prophylaxis: not indicated DVT prophylaxis: lovenox Lines: pIV Code Status: Full Code Dispo: stable. More than 25 minutes spent on chart review, patient interaction and assessment and plan. Subjective Date/time seen: 06/26/23 11:30 Interval history: pt complains of pain, increased swelling and redness. Review of Systems Review of Systems: All systems reviewed & are unremarkable except as noted in HPI and below Exam Const: General: comfortable Other: obese Resp: Effort & Inspection: normal respiratory effort Auscultation: clear to auscultation bilaterally Cardio: Rate: regular rate Rhythm: regular rhythm GI: GI Palp: Yes Soft to palpation and No Tenderness to palpation present (GI) Skin: General skin exam: erythema (RLE w/ edema, blood blisters x 3. exquisite tenderness to light palpation) Objective Data Vital Signs Vital Signs: Vital Signs - 24 hr 06/25/23 12:15 06/25/23 14:00 06/25/23 18:17 Temperature 97.2 F L 97.3 F L Pulse Rate 76 73 73 Respiratory Rate 16 14 14 Blood Pressure 120/50 L 118/80 Pulse Oximetry 99 98 98 Oxygen Delivery Room Air 06/25/23 22:00 06/26/23 06:00 Temperature 98.2 F 97.1 F L Pulse Rate 85 70 Respiratory Rate 18 18 Blood Pressure 131/70 145/95 H Pulse Oximetry 98 100 Oxygen Delivery Intake/Output Intake/Output: Intake & Output 06/23/23 06/24/23 06/25/2314/23 23:59 23:59 23:59 23:59 Intake Total 100 840 Output Total 100 Balance 0 840 Meds/Results Medications: Active Medications Generic Name Dose Route Start Last Admin Trade Name Freq PRN Reason Stop Dose Admin Acetaminophen 650 mg 06/25/23 13:02 06/26/23 00:01 Acetaminophen 325 Mg Tablet PO 650 mg Q6H PRN Administration Mild Pain (1-3) or Fever Hydrocodone Bitart/Acetaminophen 1 tab 06/25/23 20:19 06/25/23 22:07 Hydrocodone/Acetaminophen (*Crx) 10-325 Mg Tablet PO 1 tab Q6H PRN Administration Pain Rated 4-6 Cyclobenzaprine HCl 10 mg 06/26/23 09:00 06/26/23 09:51 Cyclobenzaprine Hcl 10 Mg Tablet PO 10 mg DAILY [facility] Administration Dicyclomine HCl 20 mg 06/25/23 21:00 06/26/23 09:51 Dicyclomine Hcl 10 Mg Capsule PO 20 mg QID [facility] Administration Enoxaparin Sodium 40 mg 06/25/23 13:10 06/26/23 09:51 Enoxaparin 40 Mg/0.4 Ml Syringe SUB-Q 40 mg DAILY [facility] Administration Ferrous Gluconate 324 mg 06/26/23 09:00 06/26/23 09:51 Ferrous Gluconate 324 Mg Tablet PO 324 mg DAILY [facility] Administration Furosemide 40 mg 06/26/23 09:00 06/26/23 09:52 Furosemide 40 Mg Tablet PO Not Given DAILY [facility] Hydrochlorothiazide 25 mg 06/26/23 09:00 06/26/23 09:51 Hydrochlorothiazide 25 Mg Tablet PO 25 mg DAILY [facility] Administration Cefazolin Sodium 1 gm in 50 mls @ 100 mls/hr 06/25/23 16:00 06/26/23 09:52 Ancef 1 Gm/Ns 50 Ml IVPB 100 mls/hr Q8H [facility] Administration Miscellaneous Information 1 each 06/25/23 00:01 06/26/23 09:03 Nonformulary Drug (Albuterol Sulfate 2 Mg Tablet) Can Patient Use From Home? XX 07/25/23 00:00 Not Given [facility] Morphine Sulfate 2 mg 06/25/23 20:19 06/26/23 09:42 Morphine Sulfate (*Crx) 2 Mg/Ml Inj IV PUSH 2 mg Q4H PRN Administration Pain Ra
[2023-06-26] MEDS: HYDROcodone/acetaminophen (*CRX) 10-325 MG TABLET 1 TAB PO ×2 (12:07→19:19)
[2023-06-26 14:00] VITALS: BP 116/68; PULSE 76; RESP 18; TEMP 36; O2SAT 99
[2023-06-26 22:00] VITALS: BP 127/70; PULSE 73; RESP 16; TEMP 35.9; O2SAT 100
[2023-06-27] MEDS: ceFAZolin 1 GM/NS 50 ML 1 GM/50 ML BAG IVPB ×4 (00:24→23:54)
[2023-06-27] MEDS: HYDROcodone/acetaminophen (*CRX) 10-325 MG TABLET 1 TAB PO ×4 (00:57→23:54)
[2023-06-27 05:43] VITALS: BP 146/80; PULSE 63; RESP 12; TEMP 35.9; O2SAT 100
[2023-06-27 06:16] LABS: Basophils Percent Auto 0.7 % (0.2-1.2); Eosinophils Absolute Auto 0.1 K/mm3 (0-0.3); Eosinophils Percent Auto 2.2 % (0-4.4); Hematocrit 37.5 % (37.0-47.0); Hemoglobin 11.4 g/dL (12.0-15.0); Immature Granulocyte Absolute 0.01 K/mm3 (0.00-0.031); Immature Granulocyte Percent A 0.2 % (0-0.5); Lymphocytes Absolute Auto 1.93 K/mm3 (0.9-3.2); Lymphocytes Percent Auto 34.8 % (18.3-44.2); Mean Corpuscular HGB Conc 30.4 g/dl (32-36); Mean Corpuscular Hemoglobin 29.2 pg (26-34); Mean Corpuscular Volume 95.9 fl (80-100); Mean Platelet Volume 9.1 fl (7.4-10.4); Monocytes Absolute Auto 0.7 K/mm3 (0.1-0.6); Monocytes Percent Auto 11.7 % (2.6-8.5); Neutrophils Absolute Auto 2.8 K/mm3 (1.3-6.7); Neutrophils Percent Auto 50.4 % (45.5-73.1); Platelet Count Result 214 k/mm3 (150-375); Red Blood Count 3.91 M/mm3 (4.2-5.4); Red Cell Distribution Width 14.7 % (11.5-14.5); White Blood Count 5.6 K/mm3 (4.5-10.0)
[2023-06-27 06:29] LABS: Anion Gap 1 mmol/L (8-16); Blood Urea Nitrogen 13 mg/dL (7-17); Calcium 8.2 mg/dL (8.4-10.2); Carbon Dioxide 28 mmol/L (22-30); Chloride 103 mmol/L (98-107); Estimated CRCL calculation 168 ml/min; Estimated Glomerular Filt Rate > 60; Glucose 91 mg/dL (65-110); Potassium 4.1 mmol/L (3.4-5.0); Sodium 132 mmol/L (137-145)
--- NOTE | 2023-06-27 09:50 | PC.NURSE ---
This RN administered all morning medications given on 06/27/2023 around 0951.
[2023-06-27] MEDS: FERROUS GLUCONATE 324 MG TABLET PO (09:51)
[2023-06-27] MEDS: DICYCLOMINE HCL 10 MG CAPSULE 20 MG PO ×4 (09:51→21:29)
[2023-06-27] MEDS: POTASSIUM CHLORIDE 20 MEQ ER TABLET PO (09:51)
[2023-06-27] MEDS: CYCLOBENZAPRINE HCL 10 MG TABLET PO (09:51)
[2023-06-27] MEDS: hydroCHLOROthiazide 25 MG TABLET PO (09:51)
[2023-06-27] MEDS: MULTIVITAMINS THERAPEUTIC TAB (*BKC) 1 TABLET PO ×2 (09:51→16:08)
[2023-06-27] MEDS: MORPHINE SULFATE (*CRX) 2 MG/ML INJ IV PUSH ×3 (09:52→21:27)
[2023-06-27 09:55] VITALS: O2SAT 96
[2023-06-27] MEDS: ENOXAPARIN 40 MG/0.4 ML SYRINGE SUB-Q (09:55)
--- NOTE | 2023-06-27 09:57 | PM.IMPN ---
Progress Note: A&P Assessment and Plan (1) Cellulitis of right leg: Code(s): L03.115 - Cellulitis of right lower limb Status: Acute (2) Hypertension: Code(s): I10 - Essential (primary) hypertension Status: Acute (3) Obesity (BMI 35.0-39.9 without comorbidity): Code(s): E66.9 - Obesity, unspecified Status: Acute Plan 57F w/ PMH HTN and GERD presents with RLE swelling on 06/25. Admitted for cellulitis refractory to augmentin outpatient. 1) cellulitis of RLE, non purulent - ctm white count - cefazolin started on 06/25. worsened on 06/26 so vancomycin added. f/u blood cultures - better on 06/27, no change in mgmt. consider d/c vancomycin tomorrow if better. have asked nurse to ana laura borders with surgical marker today 2) right foot fracture, 5th phalanx - healing. WBAT FEN: cardiac diet, saline lock IV GI prophylaxis: on home PPI DVT prophylaxis: lovenox Lines: pIV Code Status: Full Code Dispo: stable. Subjective Date/time seen: 06/27/23 09:57 Interval history: NAOE. pt reports pain at the leg , maybe slightly improved. Review of Systems Review of Systems: All systems reviewed & are unremarkable except as noted in HPI and below Exam Const: General: comfortable Other: obese Eyes: Pupils: Equal, round and reactive pupils present Resp: Effort & Inspection: normal respiratory effort Cardio: Rate: regular rate Rhythm: regular rhythm GI: Inspection: non-distended Auscultation: normal bowel sounds Skin: Other: RLE. mid distal LE down to ankle with erythma with ill defined borders. 3 pockets of blood filled blisters. severe TTP, although improved from day prior Objective Data Vital Signs Vital Signs: Vital Signs - 24 hr 06/26/23 14:00 06/26/23 22:00 06/27/23 05:43 Temperature 96.8 F L 96.6 F L 96.7 F L Pulse Rate 76 73 63 Respiratory Rate 18 16 12 Blood Pressure 116/68 127/70 146/80 H Pulse Oximetry 99 100 100 Intake/Output Intake/Output: Intake & Output 06/24/23 06/25/23 06/26/23 06/27/23 23:59 23:59 23:59 23:59 Intake Total 100 1920 340 Output Total 100 Balance 0 1920 340 Meds/Results Medications: Active Medications Generic Name Dose Route Start Last Admin Trade Name Freq PRN Reason Stop Dose Admin Acetaminophen 650 mg 06/25/23 13:02 06/26/23 00:01 Acetaminophen 325 Mg Tablet PO 650 mg Q6H PRN Administration Mild Pain (1-3) or Fever Hydrocodone Bitart/Acetaminophen 1 tab 06/25/23 20:19 06/27/23 00:57 Hydrocodone/Acetaminophen (*Crx) 10-325 Mg Tablet PO 1 tab Q6H PRN Administration Pain Rated 4-6 Cyclobenzaprine HCl 10 mg 06/26/23 09:00 06/27/23 09:51 Cyclobenzaprine Hcl 10 Mg Tablet PO 10 mg DAILY [facility] Administration Dicyclomine HCl 20 mg 06/25/23 21:00 06/27/23 09:51 Dicyclomine Hcl 10 Mg Capsule PO 20 mg QID [facility] Administration Enoxaparin Sodium 40 mg 06/25/23 13:10 06/27/23 09:55 Enoxaparin 40 Mg/0.4 Ml Syringe SUB-Q 40 mg DAILY [facility] Administration Ferrous Gluconate 324 mg 06/26/23 09:00 06/27/23 09:51 Ferrous Gluconate 324 Mg Tablet PO 324 mg DAILY [facility] Administration Furosemide 40 mg 06/26/23 09:00 06/27/23 09:51 Furosemide 40 Mg Tablet PO 40 mg DAILY [facility] Administration Hydrochlorothiazide 25 mg 06/26/23 09:00 06/27/23 09:51 Hydrochlorothiazide 25 Mg Tablet PO 25 mg DAILY [facility] Administration Cefazolin Sodium 1 gm in 50 mls @ 100 mls/hr 06/25/23 16:00 06/27/23 09:50 Ancef 1 Gm/Ns 50 Ml IVPB 100 mls/hr Q8H [facility] Administration Vancomycin HCl 1,500 mg in 500 mls @ 250 mls/hr 06/27/23 00:00 06/27/23 00:58 Vancomycin 1,500 Mg/D5w 500 Ml IVPB 250 mls/hr Q12H [facility] Administration Miscellaneous Information 1 each 06/25/23 00:01 06/27/23 09:48 Nonformulary Drug (Albuterol Sulfate 2 Mg Tablet) Can Patient Use From Home? XX 07/25/23 00:00 Not Given [facility] Morphine Sulfate 2 mg 06/25/23 20:
[2023-06-27] MEDS: PANTOPRAZOLE SOD SESQUIHYDRATE 20 MG TAB PO (10:18)
[2023-06-27 14:00] VITALS: BP 118/66; PULSE 85; RESP 16; TEMP 36.4; O2SAT 100
[2023-06-27 20:00] VITALS: O2SAT 98
[2023-06-27 21:15] VITALS: BP 115/74; PULSE 82; RESP 16; TEMP 36.1; O2SAT 98
[2023-06-27 23:42] LABS: Vancomycin Trough 14.1 ug/mL (10.0-20.0)
[2023-06-28] MEDS: MORPHINE SULFATE (*CRX) 2 MG/ML INJ IV PUSH ×3 (03:27→17:26)
[2023-06-28 05:35] VITALS: BP 134/83; PULSE 77; RESP 20; TEMP 36.4; O2SAT 97
[2023-06-28 06:05] LABS: Hematocrit 37.2 % (37.0-47.0); Hemoglobin 11.1 g/dL (12.0-15.0); Mean Corpuscular HGB Conc 29.8 g/dl (32-36); Mean Corpuscular Hemoglobin 28.5 pg (26-34); Mean Corpuscular Volume 95.4 fl (80-100); Mean Platelet Volume 8.9 fl (7.4-10.4); Platelet Count Result 221 k/mm3 (150-375); Red Cell Distribution Width 14.6 % (11.5-14.5); White Blood Count 4.8 K/mm3 (4.5-10.0)
[2023-06-28 06:20] LABS: Anion Gap 2 mmol/L (8-16); Blood Urea Nitrogen 11 mg/dL (7-17); Calcium 8.3 mg/dL (8.4-10.2); Carbon Dioxide 31 mmol/L (22-30); Chloride 102 mmol/L (98-107); Estimated CRCL calculation 138 ml/min; Estimated Glomerular Filt Rate > 60; Glucose 86 mg/dL (65-110); Sodium 135 mmol/L (137-145)
[2023-06-28] MEDS: HYDROcodone/acetaminophen (*CRX) 10-325 MG TABLET 1 TAB PO ×2 (08:31→15:05)
[2023-06-28] MEDS: DICYCLOMINE HCL 10 MG CAPSULE 20 MG PO ×4 (08:32→20:04)
[2023-06-28] MEDS: FERROUS GLUCONATE 324 MG TABLET PO (08:32)
[2023-06-28] MEDS: hydroCHLOROthiazide 25 MG TABLET PO (08:32)
[2023-06-28] MEDS: ceFAZolin 1 GM/NS 50 ML 1 GM/50 ML BAG IVPB ×2 (08:32→16:39)
[2023-06-28] MEDS: MULTIVITAMINS THERAPEUTIC TAB (*BKC) 1 TABLET PO ×2 (08:32→16:39)
[2023-06-28] MEDS: ENOXAPARIN 40 MG/0.4 ML SYRINGE SUB-Q (08:32)
[2023-06-28] MEDS: PANTOPRAZOLE SOD SESQUIHYDRATE 20 MG TAB PO (08:32)
[2023-06-28] MEDS: CYCLOBENZAPRINE HCL 10 MG TABLET PO (08:32)
[2023-06-28] MEDS: POTASSIUM CHLORIDE 20 MEQ ER TABLET PO (08:32)
[2023-06-28] MEDS: FUROSEMIDE 40 MG TABLET PO (08:32)
[2023-06-28 14:00] VITALS: BP 114/64; PULSE 78; RESP 20; TEMP 35.7; O2SAT 98
--- NOTE | 2023-06-28 19:16 | PM.IMPN ---
Progress Note: A&P Assessment and Plan (1) Cellulitis of right leg: Code(s): L03.115 - Cellulitis of right lower limb Status: Acute (2) Cellulitis: Code(s): L03.90 - Cellulitis, unspecified Status: Acute (3) Hypertension: Code(s): I10 - Essential (primary) hypertension Status: Acute (4) Obesity (BMI 35.0-39.9 without comorbidity): Code(s): E66.9 - Obesity, unspecified Status: Acute (5) Diverticular disease: Code(s): K57.90 - Diverticulosis of intestine, part unspecified, without perforation or abscess without bleeding Status: Acute Plan 57F w/ PMH? HTN and GERD presents with RLE swelling on 06/25. Admitted for cellulitis refractory to augmentin outpatient. 1) cellulitis of RLE, non purulent - ctm white count - cefazolin started on 06/25. worsened on 06/26 so vancomycin added. f/u blood cultures - better on 06/27, no change in mgmt. consider d/c vancomycin tomorrow if better. have asked nurse to ana laura borders with surgical marker today 06/28 area of cellulitis has not improved ct vanc/ancef f/u ct RLE w wo con for abscess increase morphine to 4 mg iv q4 for pain control 2) right foot fracture, 5th phalanx - healing. WBAT FEN: cardiac diet, saline lock IV GI prophylaxis: on home PPI DVT prophylaxis: lovenox Lines: pIV Code Status: Full Code Dispo: stable. Subjective Date/time seen: 06/28/23 19:16 Interval history: having drainage in the RLE. complains pain meds are not working. wants to go home. denies f/c Review of Systems Review of Systems: n/a Exam Narrative: Const:?? General: comfortab le? Other: obese ? Eyes:?? Pupils: Equal, rou nd and reactive pu pils present Resp:?? Effort & Inspectio n: normal respirat ory effort Cardio:?? Rate: regular rate ? Rhythm: regular rhythm GI:?? Inspection: non-di stended? Auscultat ion: normal bowel sounds Skin:?? Other: RLE. mid d istal LE down to a nkle with erythma with ill defined b orders. 3 pockets of blood filled bl isters. severe TTP , although improve d from day prior Objective Data Vital Signs Vital Signs: Vital Signs - 24 hr 06/27/23 21:15 06/27/23 20:00 06/28/23 05:35 Temperature 97.0 F L 97.5 F L Pulse Rate 82 77 Respiratory Rate 16 20 Blood Pressure 115/74 134/83 Pulse Oximetry 98 98 97 Oxygen Delivery Room Air 06/28/23 08:00 06/28/23 14:00 Temperature 96.2 F L Pulse Rate 78 Respiratory Rate 20 Blood Pressure 114/64 Pulse Oximetry 98 Oxygen Delivery Room Air Intake/Output Intake/Output: Intake & Output 06/25/23 06/26/23 06/27/23 06/28/23 23:59 23:59 23:59 23:59 Intake Total 100 1920 2520 2690 Output Total 100 Balance 0 1920 2520 2690 Meds/Results Medications: Active Medications Generic Name Dose Route Start Last Admin Trade Name Freq PRN Reason Stop Dose Admin Acetaminophen 650 mg 06/25/23 13:02 06/26/23 00:01 Acetaminophen 325 Mg Tablet PO 650 mg Q6H PRN Administration Mild Pain (1-3) or Fever Hydrocodone Bitart/Acetaminophen 1 tab 06/25/23 20:19 06/28/23 15:05 Hydrocodone/Acetaminophen (*Crx) 10-325 Mg Tablet PO 1 tab Q6H PRN Administration Pain Rated 4-6 Cyclobenzaprine HCl 10 mg 06/26/23 09:00 06/28/23 08:32 Cyclobenzaprine Hcl 10 Mg Tablet PO 10 mg DAILY [facility] Administration Dicyclomine HCl 20 mg 06/25/23 21:00 06/28/23 16:39 Dicyclomine Hcl 10 Mg Capsule PO 20 mg QID [facility] Administration Enoxaparin Sodium 40 mg
[2023-06-28] MEDS: MORPHINE SULFATE (*CRX) 2 MG/ML INJ 4 MG IV PUSH (20:11)
[2023-06-28 21:58] VITALS: BP 130/69; PULSE 79; RESP 14; TEMP 36.4; O2SAT 95
[2023-06-29] MEDS: ceFAZolin 1 GM/NS 50 ML 1 GM/50 ML BAG IVPB ×3 (00:11→21:42)
[2023-06-29] MEDS: HYDROcodone/acetaminophen (*CRX) 10-325 MG TABLET 1 TAB PO ×5 (05:49→21:41)
[2023-06-29 06:00] VITALS: BP 107/66; PULSE 72; RESP 16; TEMP 36.6; O2SAT 99
[2023-06-29 07:24] LABS: Estimated CRCL calculation 168 ml/min; Estimated Glomerular Filt Rate > 60
[2023-06-29 07:52] VITALS: PULSE 70; O2SAT 97
--- NOTE | 2023-06-29 10:14 | PM.IMPN ---
Progress Note: A&P Assessment and Plan (1) Cellulitis of right leg: Code(s): L03.115 - Cellulitis of right lower limb Status: Acute (2) Cellulitis: Code(s): L03.90 - Cellulitis, unspecified Status: Acute (3) Hypertension: Code(s): I10 - Essential (primary) hypertension Status: Acute (4) Obesity (BMI 35.0-39.9 without comorbidity): Code(s): E66.9 - Obesity, unspecified Status: Acute (5) Diverticular disease: Code(s): K57.90 - Diverticulosis of intestine, part unspecified, without perforation or abscess without bleeding Status: Acute Plan 1) cellulitis of RLE, non purulent - ctm white count - cefazolin started on 06/25. worsened on 06/26 so vancomycin added. f/u blood cultures - better on 06/27, no change in mgmt. consider d/c vancomycin tomorrow if better. have asked nurse to ana laura borders with surgical marker today 06/29 area of cellulitis has not improved ct vanc/ancef f/u ct RLE w wo con for abscess stopped morphine. increased norco to q4. can f/u wbc again tomorrow can switch pt to oral abx once erythema reduces in size, pain is manageable, and/or ct rle w/wo con is neg for abscess 2) right foot fracture, 5th phalanx - healing. WBAT FEN: cardiac diet, saline lock IV GI prophylaxis: on home PPI DVT prophylaxis: lovenox Lines: pIV Code Status: Full Code Dispo: stable. Subjective Date/time seen: 06/29/23 10:14 Interval history: no changes with leg pain or erythema. morphine does nothing for her leg pain. prefers norco. Review of Systems Review of Systems: n/a Exam Narrative: General:?Well-developed, nontoxic-appearing female sitting up in bed in no acute distress. Weight: 110.62 kg.? BMI: 37.1. HEENT:??PERRL, EOMI. Sclera anicteric.? Oral mucosa moist.? Neck:??Supple. Respiratory:?Lungs are clear to auscultation bilaterally. Cardiovascular:??Regular rate and rhythm with S1-S2. Gastrointestinal:??Abdomen is soft, nontender, and nondistended with positive bowel sounds. Skin:??Warm and dry. Irregularly shaped warm erythematous on the right lower leg not quite circumferential around the calf. There is a soft tissue hematoma on the right lateral lower leg above the lateral malleolus with a small open area. There was another larger blood blister the medial aspect of the mid lara. Erythema and edema extend down to the forefoot. There is some scattered bruising as well along feet Extremities:??No cyanosis or clubbing. There is reactive edema of the right foot. Peripheral pulses intact. Neurological:??Alert.? Cranial nerves 2-12 are grossly intact. No gross focal deficits to casual conversation. Psychiatric:??Pleasant and cooperative with normal mood and affect.? Judgment and insight intact. Objective Data Vital Signs Vital Signs: Vital Signs - 24 hr 06/28/23 14:00 06/28/23 21:58 06/28/23 20:00 Temperature 96.2 F L 97.6 F Pulse Rate 78 79 Respiratory Rate 20 14 Blood Pressure 114/64 130/69 Pulse Oximetry 98 95 Oxygen Delivery Room Air 06/29/23 06:00 06/29/23 07:52 Temperature 97.9 F Pulse Rate 72 70 Respiratory Rate 16 Blood Pressure 107/66 Pulse Oximetry 99 97 Oxygen Delivery Room Air Intake/Output Intake/Output: Intake & Output 06/26/23 06/27/23 06/28/23 06/29/23 23:59 23:59 23:59 23:59 Intake Total 1920 2520 2690 1170 Balance 1920 2520 2690 1170 Meds/Results Medications: Active Medications Generic Name Dose Route Start Last Admin Trade Name Jacielq PRN Reason Stop Dose Admin Acetaminophen 650 mg 06/25/23 13:02 06/26/23 00:01 Acetaminophen 325 Mg Tablet PO 650 mg Q6H PRN Administration Mild Pain (1-3) or Fever Cyclobenzaprine HCl 10 mg 06/26/23 09:00 06/28/23 08:32 Cyclobenzaprine Hcl 10 Mg Tablet PO 10 mg DAILY [facility] Administration Dicyclomine HCl 20 mg 06/25/23 21:00 06/28/23 20:04 Dicyclomine Hcl 10 Mg Capsule PO 20 mg QID [facility] Administration Enoxaparin Sodium
[2023-06-29] MEDS: DICYCLOMINE HCL 10 MG CAPSULE 20 MG PO ×4 (10:25→20:26)
[2023-06-29] MEDS: ENOXAPARIN 40 MG/0.4 ML SYRINGE SUB-Q (10:25)
[2023-06-29] MEDS: hydroCHLOROthiazide 25 MG TABLET PO (10:26)
[2023-06-29] MEDS: POTASSIUM CHLORIDE 20 MEQ ER TABLET PO (10:26)
[2023-06-29] MEDS: FERROUS GLUCONATE 324 MG TABLET PO (10:26)
[2023-06-29] MEDS: MULTIVITAMINS THERAPEUTIC TAB (*BKC) 1 TABLET PO ×2 (10:26→18:08)
[2023-06-29] MEDS: FUROSEMIDE 40 MG TABLET PO (10:26)
[2023-06-29] MEDS: CYCLOBENZAPRINE HCL 10 MG TABLET PO (10:26)
[2023-06-29] MEDS: PANTOPRAZOLE SOD SESQUIHYDRATE 20 MG TAB PO (10:27)
[2023-06-29 13:41] VITALS: BP 123/70; PULSE 87; RESP 18; TEMP 36.1; O2SAT 97
[2023-06-29 20:00] VITALS: PULSE 65; RESP 16; O2SAT 99
[2023-06-29 20:45] VITALS: BP 133/87; PULSE 65; RESP 16; TEMP 36.6; O2SAT 99
[2023-06-30 04:35] VITALS: BP 116/79; PULSE 72; RESP 16; TEMP 36.6; O2SAT 100
[2023-06-30] MEDS: ceFAZolin 1 GM/NS 50 ML 1 GM/50 ML BAG IVPB (05:11)
[2023-06-30] MEDS: HYDROcodone/acetaminophen (*CRX) 10-325 MG TABLET 1 TAB PO (05:53)
[2023-06-30 06:01] LABS: Basophils Percent Auto 0.8 % (0.2-1.2); Eosinophils Absolute Auto 0.1 K/mm3 (0-0.3); Eosinophils Percent Auto 2.8 % (0-4.4); Hematocrit 40.1 % (37.0-47.0); Hemoglobin 11.8 g/dL (12.0-15.0); Immature Granulocyte Absolute 0.01 K/mm3 (0.00-0.031); Immature Granulocyte Percent A 0.2 % (0-0.5); Lymphocytes Absolute Auto 1.76 K/mm3 (0.9-3.2); Lymphocytes Percent Auto 35.7 % (18.3-44.2); Mean Corpuscular HGB Conc 29.4 g/dl (32-36); Mean Corpuscular Hemoglobin 28.4 pg (26-34); Mean Corpuscular Volume 96.4 fl (80-100); Mean Platelet Volume 9.1 fl (7.4-10.4); Monocytes Absolute Auto 0.7 K/mm3 (0.1-0.6); Neutrophils Absolute Auto 2.3 K/mm3 (1.3-6.7); Neutrophils Percent Auto 46.5 % (45.5-73.1); Platelet Count Result 249 k/mm3 (150-375); Red Blood Count 4.16 M/mm3 (4.2-5.4); Red Cell Distribution Width 14.8 % (11.5-14.5); White Blood Count 4.9 K/mm3 (4.5-10.0)
[2023-06-30 06:15] LABS: Alanine Aminotransferase 12 U/L (6-35); Albumin Level 3.5 g/dL (3.5-5.1); Alkaline Phosphatase 90 U/L (38-126); Anion Gap 1 mmol/L (8-16); Aspartate Amino Transferase 21 U/L (14-36); Bilirubin,Total 0.4 mg/dL (0.2-1.3); Blood Urea Nitrogen 12 mg/dL (7-17); Calcium 8.4 mg/dL (8.4-10.2); Carbon Dioxide 36 mmol/L (22-30); Chloride 99 mmol/L (98-107); Estimated CRCL calculation 138 ml/min; Estimated Glomerular Filt Rate > 60; Glucose 86 mg/dL (65-110); Potassium 3.9 mmol/L (3.4-5.0); Sodium 136 mmol/L (137-145)
[2023-06-30] MEDS: PANTOPRAZOLE SOD SESQUIHYDRATE 20 MG TAB PO (10:35)
[2023-06-30] MEDS: hydroCHLOROthiazide 25 MG TABLET PO (10:35)
[2023-06-30] MEDS: DICYCLOMINE HCL 10 MG CAPSULE 20 MG PO ×4 (10:35→21:08)
[2023-06-30] MEDS: ENOXAPARIN 40 MG/0.4 ML SYRINGE SUB-Q (10:35)
[2023-06-30] MEDS: POTASSIUM CHLORIDE 20 MEQ ER TABLET PO (10:35)
[2023-06-30] MEDS: FUROSEMIDE 40 MG TABLET PO (10:35)
[2023-06-30] MEDS: MULTIVITAMINS THERAPEUTIC TAB (*BKC) 1 TABLET PO ×2 (10:35→17:32)
[2023-06-30] MEDS: FERROUS GLUCONATE 324 MG TABLET PO (10:36)
[2023-06-30] MEDS: MORPHINE SULFATE (*CRX) 2 MG/ML INJ IV PUSH (10:36)
[2023-06-30] MEDS: CYCLOBENZAPRINE HCL 10 MG TABLET PO (10:36)
--- NOTE | 2023-06-30 10:38 | PM.IMPN ---
Progress Note: A&P Assessment and Plan (1) Cellulitis of right leg: Code(s): L03.115 - Cellulitis of right lower limb Status: Acute (2) Cellulitis: Code(s): L03.90 - Cellulitis, unspecified Status: Acute (3) Hypertension: Code(s): I10 - Essential (primary) hypertension Status: Acute (4) Obesity (BMI 35.0-39.9 without comorbidity): Code(s): E66.9 - Obesity, unspecified Status: Acute (5) Diverticular disease: Code(s): K57.90 - Diverticulosis of intestine, part unspecified, without perforation or abscess without bleeding Status: Acute Plan 1) cellulitis of RLE, non purulent Con't to monitor WBC Con't cefazolin and vancomycin f/u blood cultures 06/30 - area of cellulitis has not improved, edema has decreased in foot and right toes. areas of possible eschar or necrotic tissue noted within 3 spots of the infection, surgery consulted for eval and possible debridement ct RLE w wo con was negative for abscess, nec. fasciitis norco stopped, morphine started Q2 for pain control. can switch pt to oral abx once erythema reduces in size and pain is manageable 2) right foot fracture, 5th phalanx - healing. WBAT FEN: cardiac diet, saline lock IV GI prophylaxis: on home PPI DVT prophylaxis: lovenox Lines: pIV Code Status: Full Code Dispo: stable. Subjective Date/time seen: 06/30/23 10:38 Interval history: Patient reports swelling has improved from admission. She is now able to wiggle her right toes. She reports her pain was not well-controlled through the night on norco 325 Q4, brought pain level down to 5. Tolerating PO intake, feeling better today aside from pain. Up and moving around her room ad anna. Review of Systems Review of Systems: n/a All systems reviewed & are unremarkable except as noted in HPI and below Exam Narrative: General:?Well-developed, female up out of bed in no acute distress. A&O x3. HEENT:??PERRL, EOMI. Sclera anicteric.? Oral mucosa moist.? Neck:??Supple. Respiratory:?Lungs are clear to auscultation bilaterally. Cardiovascular:??RRR Gastrointestinal:??Abdomen is soft, nontender, and nondistended with positive bowel sounds. Skin:??Warm and dry. Irregularly shaped warm erythematous on the right lower leg not quite circumferential around the calf. There is a soft tissue hematoma on the right lateral lower leg above the lateral malleolus with a small open area. There was another larger blood blister the medial aspect of the mid lara. Erythema and edema extend down to the ankle. There is some scattered bruising as well along feet. Redness, edema has not crossed drawn border. Extremities:??No cyanosis or clubbing. There is reactive edema of the right foot. Peripheral pulses intact. Neurological:??A&O x3. No focal deficits. Psychiatric:??Pleasant and cooperative with normal mood and affect.? Judgment and insight intact. Objective Data Vital Signs Vital Signs: Vital Signs - 24 hr 06/29/23 13:41 06/29/23 20:45 06/29/23 20:00 Temperature 97.0 F L 97.8 F Pulse Rate 87 65 65 Respiratory Rate 18 16 16 Blood Pressure 123/70 133/87 Pulse Oximetry 97 99 99 Oxygen Delivery Room Air 06/30/23 04:35 Temperature 97.9 F Pulse Rate 72 Respiratory Rate 16 Blood Pressure 116/79 Pulse Oximetry 100 Oxygen Delivery Intake/Output Intake/Output: Intake & Output 06/27/23 06/28/23 06/29/23 06/30/23 23:59 23:59 23:59 23:59 Intake Total 2520 2690 2800 240 Balance 2520 2690 2800 240 Meds/Results Medications: Active Medications Generic Name Dose Route Start Last Admin Trade Name Jacielq PRN Reason Stop Dose Admin Acetaminophen 650 mg 06/25/23 13:02 06/26/23 00:01 Acetaminophen 325 Mg Tablet PO 650 mg Q6H PRN Administration Mild Pain (1-3) or Fever Cyclobenzaprine HCl 10 mg 06/26/23 09:00 06/30/23 10:36 Cyclobenzaprine Hcl 10 Mg Tablet PO 10 mg DAILY [facility] Administration Dicyclomine HCl 2
--- NOTE | 2023-06-30 11:45 | PC.NURSE ---
On 06/30/23, the student, [Heike Wallace ], provided care and completed [facility] documentation on this patient. I have reviewed the student's documentation and agree with the findings.
[2023-06-30 13:52] VITALS: BP 123/45; PULSE 93; RESP 20; TEMP 35.8; O2SAT 99
--- NOTE | 2023-06-30 14:08 | PM.CNGS ---
Assessment and Plan Assessment and plan (1) Wound of right lower extremity: Code(s): S81.801A - Unspecified open wound, right lower leg, initial encounter Status: Acute Assessment and Plan: Cellulitis of the right lower leg with three separate areas on the leg that appear to be a combination of superficial skin necrosis, bruising, blistering, and possibly a hematoma on the lateral aspect of her leg. This is secondary to trauma from a fall 3 weeks ago. The wound on the lateral lower leg does seem to have some fluctuance and is tender. May need to consider incision and drainage if this starts to become more fluctuant or look as though she has pressure necrosis. We would recommend to continue IV antibiotics and monitor her wounds for now. Will start local wound care. Will decide on further plans depending on how she progresses. (2) Cellulitis of right leg: Code(s): L03.115 - Cellulitis of right lower limb Status: Acute Assessment and Plan: Continue IV antibiotics as mentioned above. Plan I have discussed the patient's case and plan of care with Dr. Mccloud. History of Present Illness Consult details Consult date: 06/30/23 Reason for consult: other (Right leg cellulitis with wounds) Requesting physician: Nain Gonzalez MD Narrative: This is a 57-year-old woman whom we have been asked to see in surgical consultation for right lower leg cellulitis and wounds. She had a fall about 3 weeks ago where she fell over a folding chair and her legs landed on the folding chair. She reports the next morning her right lower leg swelled up and she noticed some bruising. Her right lower leg and left lower leg have been painful and it is difficult to walk. She began to notice some redness to her right lower leg and initially went to the ER on 06/22/2023 for evaluation. She was sent home with Augmentin and [place]. She felt her swelling and redness got worse on the antibiotic, therefore she came back into the ER on 06/25/2023. She was admitted to the hospitalist service 5 days ago and started on IV cefazolin and vancomycin. Yesterday, she had a CT of the right lower extremity that showed cellulitis with several focal regions of soft tissue density continuous with the skin surface of the right calf, unclear whether this represents thickened soft tissue or complex fluid including hematomas. No soft tissue gas to suggest necrotizing fasciitis or organized abscess. She is seen now on the medical floor. She does not feel that there has been much of any improvement in the swelling or redness of her right lower leg. It is still painful to walk. She was not on any anticoagulation. Review of Systems Review of Systems: All systems reviewed & are unremarkable except as noted in HPI and below PMFSH Past Medical History Medical History Arthritis Asthma Diverticulitis Esophageal perforation Hypertension Neuroendocrine carcinoma Surgical History Surgical History History of colon resection For neuroendocrine carcinoma. History of esophageal surgery Repair of accidental perforation during procedure. History of sleeve gastrectomy Family History Family History Mother Hypertension Father Hypertension Social History Social History Social History: Surrogate medical decision maker: Eladio Garcia (son) or Altagracia Gino (mother). Code status: Full code. Smoking status: Never smoker Alcohol intake: never Substance use: never Substance use type: does not use Lack of Transportation: No Lack of Food: Never True Current Housing: I Have Housing Concerned About Future Housing: No Difficulty Paying Gas/Electric Bills: No Difficulty Paying for Meds: No Currently Unemployed: No Education: D
[2023-06-30] MEDS: oxyCODONE/ACETAMINOPHEN (*CRX) 5-325 MG TABLET 1 TABLET PO ×2 (15:59→21:10)
[2023-06-30] MEDS: cefTRIAXone 2 GM/NS 100 ML 2 GM/100 ML BAG IVPB (17:32)
[2023-06-30 22:00] VITALS: BP 140/76; PULSE 79; RESP 16; TEMP 35.9; O2SAT 96
[2023-07-01 06:00] VITALS: BP 123/69; PULSE 70; RESP 18; TEMP 36.1; O2SAT 97
[2023-07-01 06:31] LABS: Basophils Percent Auto 0.7 % (0.2-1.2); Eosinophils Absolute Auto 0.2 K/mm3 (0-0.3); Eosinophils Percent Auto 3.4 % (0-4.4); Hematocrit 40.2 % (37.0-47.0); Hemoglobin 12.2 g/dL (12.0-15.0); Immature Granulocyte Absolute 0.01 K/mm3 (0.00-0.031); Immature Granulocyte Percent A 0.2 % (0-0.5); Lymphocytes Absolute Auto 1.76 K/mm3 (0.9-3.2); Lymphocytes Percent Auto 39.4 % (18.3-44.2); Mean Corpuscular HGB Conc 30.3 g/dl (32-36); Mean Corpuscular Hemoglobin 28.9 pg (26-34); Mean Corpuscular Volume 95.3 fl (80-100); Mean Platelet Volume 9.1 fl (7.4-10.4); Monocytes Absolute Auto 0.6 K/mm3 (0.1-0.6); Monocytes Percent Auto 13.4 % (2.6-8.5); Neutrophils Absolute Auto 1.9 K/mm3 (1.3-6.7); Neutrophils Percent Auto 42.9 % (45.5-73.1); Platelet Count Result 234 k/mm3 (150-375); Red Blood Count 4.22 M/mm3 (4.2-5.4); Red Cell Distribution Width 14.6 % (11.5-14.5); White Blood Count 4.5 K/mm3 (4.5-10.0)
[2023-07-01 06:45] LABS: Alanine Aminotransferase 10 U/L (6-35); Albumin Level 3.3 g/dL (3.5-5.1); Alkaline Phosphatase 82 U/L (38-126); Anion Gap 3 mmol/L (8-16); Aspartate Amino Transferase 23 U/L (14-36); Bilirubin,Total 0.5 mg/dL (0.2-1.3); Blood Urea Nitrogen 14 mg/dL (7-17); Calcium 8.3 mg/dL (8.4-10.2); Carbon Dioxide 32 mmol/L (22-30); Chloride 100 mmol/L (98-107); Estimated CRCL calculation 138 ml/min; Estimated Glomerular Filt Rate > 60; Glucose 93 mg/dL (65-110); Potassium 3.9 mmol/L (3.4-5.0); Sodium 135 mmol/L (137-145)
[2023-07-01] MEDS: ENOXAPARIN 40 MG/0.4 ML SYRINGE SUB-Q (08:43)
[2023-07-01] MEDS: FUROSEMIDE 40 MG TABLET PO (08:43)
[2023-07-01] MEDS: FERROUS GLUCONATE 324 MG TABLET PO (08:43)
[2023-07-01] MEDS: MULTIVITAMINS THERAPEUTIC TAB (*BKC) 1 TABLET PO ×2 (08:43→18:10)
[2023-07-01] MEDS: DICYCLOMINE HCL 10 MG CAPSULE 20 MG PO ×4 (08:43→20:51)
[2023-07-01] MEDS: oxyCODONE/ACETAMINOPHEN (*CRX) 5-325 MG TABLET 1 TABLET PO (08:43)
[2023-07-01] MEDS: PANTOPRAZOLE SOD SESQUIHYDRATE 20 MG TAB PO (08:43)
[2023-07-01] MEDS: hydroCHLOROthiazide 25 MG TABLET PO (08:44)
[2023-07-01] MEDS: CYCLOBENZAPRINE HCL 10 MG TABLET PO (08:44)
[2023-07-01] MEDS: POTASSIUM CHLORIDE 20 MEQ ER TABLET PO (08:44)
--- NOTE | 2023-07-01 09:54 | PM.IMPN ---
Progress Note: A&P Assessment and Plan (1) Cellulitis of right leg: Code(s): L03.115 - Cellulitis of right lower limb Status: Acute (2) Cellulitis: Code(s): L03.90 - Cellulitis, unspecified Status: Acute (3) Hypertension: Code(s): I10 - Essential (primary) hypertension Status: Acute (4) Obesity (BMI 35.0-39.9 without comorbidity): Code(s): E66.9 - Obesity, unspecified Status: Acute (5) Diverticular disease: Code(s): K57.90 - Diverticulosis of intestine, part unspecified, without perforation or abscess without bleeding Status: Acute Plan 1) cellulitis of RLE, non purulent Con't to monitor WBC, stable D/C cefazolin per ID, started on rocephin 06/30 in pm for better coverage and con't vancomycin f/u blood cultures 07/01 - area of cellulitis has slight depreciation along inner top border, edema has decreased in foot and right toes. surgery consulted - recommend local wound care and continue to monitor ct RLE w wo con was negative for abscess, nec. fasciitis poor pain control, adjusted percocet dose to home dose for pain control can switch pt to oral abx once erythema reduces in size and pain is manageable 2) right foot fracture, 5th phalanx - healing. WBAT FEN: cardiac diet, saline lock IV GI prophylaxis: on home PPI DVT prophylaxis: lovenox Lines: pIV Code Status: Full Code Dispo: stable. Subjective Date/time seen: 07/01/23 09:54 Interval history: Patient reports swelling has improved from admission. She is now able to wiggle her right toes. She reports her pain was still not well-controlled through the night with Percocet 5mg Q4, brought pain level down to 5. Discussed her home dose of Endocet, which is at 10 mg. She has failed gabbapentin and pregamblin for her neuropathy pain. Will increase dose to 10 percocet with hopes to better pain control. Pain is more localized today to her inner right leg. Tolerating PO intake, feeling better today aside from pain. Up and moving around her room ad anna. Review of Systems Review of Systems: n/a All systems reviewed & are unremarkable except as noted in HPI and below Exam Narrative: General:?Well-developed, female up out of bed in no acute distress. A&O x3. HEENT:??PERRL, EOMI. Sclera anicteric.? Oral mucosa moist.? Neck:??Supple. Respiratory:?Lungs are clear to auscultation bilaterally. Cardiovascular:??RRR Gastrointestinal:??Abdomen is soft, nontender, and nondistended with positive bowel sounds. Skin:??Warm and dry. Irregularly shaped warm erythematous on the right lower leg not quite circumferential around the calf. There is a soft tissue hematoma on the right lateral lower leg above the lateral malleolus with a small open area. There was another larger blood blister the medial aspect of the mid lara. Erythema and edema extend down to the ankle. There is some scattered bruising as well along feet. Redness, edema has not crossed drawn border. Some indication of depreciation from top of border. Extremities:??No cyanosis or clubbing. There is reactive edema of the right foot. Peripheral pulses intact. Neurological:??A&O x3. No focal deficits. Psychiatric:??Pleasant and cooperative with normal mood and affect.? Judgment and insight intact. Objective Data Vital Signs Vital Signs: Vital Signs - 24 hr 06/30/23 13:52 06/30/23 22:00 06/30/23 20:00 Temperature 96.4 F L 96.6 F L Pulse Rate 93 79 Respiratory Rate 20 16 Blood Pressure 123/45 L 140/76 Pulse Oximetry 99 96 Oxygen Delivery Room Air 07/01/23 06:00 Temperature 96.9 F L Pulse Rate 70 Respiratory Rate 18 Blood Pressure 123/69 Pulse Oximetry 97 Oxygen Delivery Intake/Output Intake/Output: Intake & Output 06/28/23 06/29/23 06/30/23 07/01/23 23:59 23:59 23:59 23:59 Intake Total 2690 2800 2370 240 Balance 2690 2800 2370 240 Meds/Results Medications: Active Medications Generic Name Dose Route Start Last
--- NOTE | 2023-07-01 10:45 | PM.PNGS ---
Progress Note: A&P Assessment and Plan (1) Wound of right lower extremity: Code(s): S81.801A - Unspecified open wound, right lower leg, initial encounter Status: Acute Assessment and Plan: The right lower extremity wounds are stable. There is superficial epidermolysis from the blisters but the wound seemed to be pretty superficial. No drainage of any pus at this point. No need for surgical debridement at this point. Continue to keep the right lower extremity elevated to keep swelling and lower extremity. (2) Cellulitis of right leg: Code(s): L03.115 - Cellulitis of right lower limb Status: Acute Assessment and Plan: Continue IV antibiotics. White blood count is normal. Redness and swelling is slowly improving. Will continue to follow. Subjective Subjective Date/Time Seen: 07/01/23 10:45 Interval history: Patient has complaints of still having pain of her right lower extremity. She is on chronic narcotic pain medications. Narcotic pain medication doses are being adjusted as per the hospitalist service. No fever. White blood cell count still normal. Remains on Rocephin and Ancef for IV antibiotics. Exam Extrem: Other: The right lower extremity below the knee has 3 areas of superficial blistering with old blood underneath the skin. Some of the areas have ruptured but other areas have not. The erythema of the skin is slowly improving. There is less swelling. No purulent drainage is noted. At this point all the nonviable tissue is very superficial which is sloughing of the epidermis. Objective Data Vital Signs Vital Signs: Vital Signs - 24 hr 06/30/23 13:52 06/30/23 22:00 06/30/23 20:00 Temperature 35.8 C L 35.9 C L Pulse Rate 93 79 Respiratory Rate 20 16 Blood Pressure 123/45 L 140/76 Pulse Oximetry 99 96 Oxygen Delivery Room Air 07/01/23 06:00 Temperature 36.1 C L Pulse Rate 70 Respiratory Rate 18 Blood Pressure 123/69 Pulse Oximetry 97 Oxygen Delivery Intake/Output Intake/Output: Intake & Output 06/28/23 06/29/23 06/30/23 07/01/23 23:59 23:59 23:59 23:59 Intake Total 2690 2800 2370 240 Balance 2690 2800 2370 240 Meds/Results Medications: Active Medications Generic Name Dose Route Start Last Admin Trade Name Freq PRN Reason Stop Dose Admin Acetaminophen 650 mg 06/25/23 13:02 06/26/23 00:01 Acetaminophen 325 Mg Tablet PO 650 mg Q6H PRN Administration Mild Pain (1-3) or Fever Cyclobenzaprine HCl 10 mg 06/26/23 09:00 07/01/23 08:44 Cyclobenzaprine Hcl 10 Mg Tablet PO 10 mg DAILY [facility] Administration Dicyclomine HCl 20 mg 06/25/23 21:00 07/01/23 08:43 Dicyclomine Hcl 10 Mg Capsule PO 20 mg QID [facility] Administration Enoxaparin Sodium 40 mg 06/25/23 13:10 07/01/23 08:43 Enoxaparin 40 Mg/0.4 Ml Syringe SUB-Q 40 mg DAILY [facility] Administration Ferrous Gluconate 324 mg 06/26/23 09:00 07/01/23 08:43 Ferrous Gluconate 324 Mg Tablet PO 324 mg DAILY [facility] Administration Furosemide 40 mg 06/26/23 09:00 07/01/23 08:43 Furosemide 40 Mg Tablet PO 40 mg DAILY [facility] Administration Hydrochlorothiazide 25 mg 06/26/23 09:00 07/01/23 08:44 Hydrochlorothiazide 25 Mg Tablet PO 25 mg DAILY [facility] Administration Vancomycin HCl 1,500 mg in 500 mls @ 250 mls/hr 06/27/23 00:00 06/30/23 23:37 Vancomycin 1,500 Mg/D5w 500 Ml IVPB 250 mls/hr Q12H [facility] Administration Ceftriaxone Sodium 2 gm in 100 mls @ 200 mls/hr 06/30/23 16:00 06/30/23 18:02 Rocephin 2 Gm/Ns 100 Ml IVPB Infused DAILY@1500 [facility] Infusion Multivitamins Therapeutic 1 tablet 06/26/23 09:00 07/01/23 08:43 Multivitamins Therapeutic Tab (*Bkc) PO 1 tablet BID [facility] Administration Oxycodone/Acetaminophen 1 tab 07/01/23 09:49 Oxycodone/Acetaminophen (*Crx) 10-325 Mg Tablet PO Q4H PRN Pain Rated 7-10 Pantoprazole Sodium 20 mg 06/27/23 10:00 07/01/23 08:43 Pantoprazole Sod Sesqu
[2023-07-01] MEDS: oxyCODONE/ACETAMINOPHEN (*CRX) 10-325 MG TABLET 1 TAB PO (13:26)
[2023-07-01 14:00] VITALS: BP 134/74; PULSE 76; RESP 16; TEMP 36; O2SAT 99
[2023-07-01] MEDS: cefTRIAXone 2 GM/NS 100 ML 2 GM/100 ML BAG IVPB (15:57)
[2023-07-01] MEDS: TAPENTADOL HCL (*CRX) 50 MG TABLET (17:59)
[2023-07-01 20:47] VITALS: BP 122/70; PULSE 86; RESP 16; TEMP 37.4; O2SAT 100
[2023-07-01] MEDS: TAPENTADOL HCL (*CRX) 50 MG TABLET PO (20:50)
--- NOTE | 2023-07-01 21:12 | PC.NURSE ---
This pt has been receiving a variety of pain medications. Most have provided some relief, but have still left pt dealing with unmanageable pain. Providers made aware; new orders received with meds given, re-eval'ed, and new orders sought each time. Pt understanding and appreciative. Report given to night RN with a one time dose of nucynta still due to pt .
[2023-07-02 00:10] LABS: Vancomycin Trough 15.8 ug/mL (10.0-20.0)
[2023-07-02] MEDS: VANCOMYCIN 1,250 MG/NS 250 ML 1,250 MG/250 ML BAG 166.67 MG IVPB (00:34)
[2023-07-02] MEDS: oxyCODONE/ACETAMINOPHEN (*CRX) 10-325 MG TABLET 1 TAB PO (01:15)
[2023-07-02 05:15] VITALS: BP 133/74; PULSE 66; RESP 16; TEMP 36.8; O2SAT 100
[2023-07-02 06:35] LABS: Basophils Percent Auto 0.7 % (0.2-1.2); Eosinophils Absolute Auto 0.2 K/mm3 (0-0.3); Eosinophils Percent Auto 4.1 % (0-4.4); Hematocrit 39.8 % (37.0-47.0); Hemoglobin 11.8 g/dL (12.0-15.0); Immature Granulocyte Absolute 0.01 K/mm3 (0.00-0.031); Immature Granulocyte Percent A 0.2 % (0-0.5); Lymphocytes Absolute Auto 1.77 K/mm3 (0.9-3.2); Lymphocytes Percent Auto 38.6 % (18.3-44.2); Mean Corpuscular HGB Conc 29.6 g/dl (32-36); Mean Corpuscular Hemoglobin 28.5 pg (26-34); Mean Corpuscular Volume 96.1 fl (80-100); Monocytes Absolute Auto 0.5 K/mm3 (0.1-0.6); Monocytes Percent Auto 10.2 % (2.6-8.5); Neutrophils Absolute Auto 2.1 K/mm3 (1.3-6.7); Neutrophils Percent Auto 46.2 % (45.5-73.1); Platelet Count Result 250 k/mm3 (150-375); Red Blood Count 4.14 M/mm3 (4.2-5.4); Red Cell Distribution Width 14.6 % (11.5-14.5); White Blood Count 4.6 K/mm3 (4.5-10.0)
[2023-07-02 07:05] LABS: Alanine Aminotransferase 12 U/L (6-35); Albumin Level 3.4 g/dL (3.5-5.1); Alkaline Phosphatase 91 U/L (38-126); Anion Gap 2 mmol/L (8-16); Aspartate Amino Transferase 26 U/L (14-36); Bilirubin,Total 0.4 mg/dL (0.2-1.3); Blood Urea Nitrogen 15 mg/dL (7-17); Calcium 8.4 mg/dL (8.4-10.2); Carbon Dioxide 32 mmol/L (22-30); Chloride 102 mmol/L (98-107); Estimated CRCL calculation 138 ml/min; Estimated Glomerular Filt Rate > 60; Glucose 92 mg/dL (65-110); Potassium 3.7 mmol/L (3.4-5.0); Sodium 136 mmol/L (137-145)
[2023-07-02 08:00] VITALS: O2SAT 100
[2023-07-02] MEDS: CYCLOBENZAPRINE HCL 10 MG TABLET PO (08:46)
[2023-07-02] MEDS: DICYCLOMINE HCL 10 MG CAPSULE 20 MG PO (08:46)
[2023-07-02] MEDS: PANTOPRAZOLE SOD SESQUIHYDRATE 20 MG TAB PO (08:47)
[2023-07-02] MEDS: FUROSEMIDE 40 MG TABLET PO (08:47)
[2023-07-02] MEDS: MULTIVITAMINS THERAPEUTIC TAB (*BKC) 1 TABLET PO (08:47)
[2023-07-02] MEDS: POTASSIUM CHLORIDE 20 MEQ ER TABLET PO (08:47)
[2023-07-02] MEDS: hydroCHLOROthiazide 25 MG TABLET PO (08:47)
[2023-07-02] MEDS: ENOXAPARIN 40 MG/0.4 ML SYRINGE SUB-Q (08:48)
--- NOTE | 2023-07-02 09:28 | PM.PNGS ---
Subjective Subjective Date/Time Seen: 07/02/23 09:28 Interval history: Patient continues do well. Less pain in her right lower extremity. No fever. White blood cell count remains normal. She wishes to go home. Exam Extrem: Other: Right lower extremity superficial wound are stable. Swelling in the right lung lower extremity below the knee is improving. Redness is also improving. Wounds are superficial and local wound care is all that is needed. No need to debride any tissue. She can discharge home on some oral antibiotics at the discretion of the hospitalist service. Patient states that she has a vocational rehabilitation specialist that she sees on a regular basis will follow-up with that person for wound care for right lower extremity wounds. No need to follow with me in the office. Objective Data Vital Signs Vital Signs: Vital Signs - 24 hr 07/01/23 14:00 07/01/23 20:47 07/01/23 20:00 Temperature 36.0 C L 37.4 C Pulse Rate 76 86 Respiratory Rate 16 16 Blood Pressure 134/74 122/70 Pulse Oximetry 99 100 Oxygen Delivery Room Air 07/02/23 05:15 07/02/23 08:00 Temperature 36.8 C Pulse Rate 66 Respiratory Rate 16 Blood Pressure 133/74 Pulse Oximetry 100 100 Oxygen Delivery Room Air Intake/Output Intake/Output: Intake & Output 06/29/23 06/30/23 07/01/23 07/02/23 23:59 23:59 23:59 23:59 Intake Total 2800 2370 2920 800 Balance 2800 2370 2920 800 Meds/Results Medications: Active Medications Generic Name Dose Route Start Last Admin Trade Name Jacielq PRN Reason Stop Dose Admin Acetaminophen 650 mg 06/25/23 13:02 06/26/23 00:01 Acetaminophen 325 Mg Tablet PO 650 mg Q6H PRN Administration Mild Pain (1-3) or Fever Cefdinir 300 mg 07/02/23 09:00 Cefdinir 300 Mg Capsule PO Q12HR [facility] [place] Cyclobenzaprine HCl 10 mg 06/26/23 09:00 07/02/23 08:46 Cyclobenzaprine Hcl 10 Mg Tablet PO 10 mg DAILY [facility] Administration Dicyclomine HCl 20 mg 06/25/23 21:00 07/02/23 08:46 Dicyclomine Hcl 10 Mg Capsule PO 20 mg QID [facility] Administration Doxycycline Hyclate 100 mg 07/02/23 09:00 Doxycycline Hyclate 100 Mg Tablet PO Q12HR [facility] Enoxaparin Sodium 40 mg 06/25/23 13:10 07/02/23 08:48 Enoxaparin 40 Mg/0.4 Ml Syringe SUB-Q 40 mg DAILY [facility] Administration Ferrous Gluconate 324 mg 07/02/23 12:00 Ferrous Gluconate 324 Mg Tablet PO DAILY@1200 [facility] Furosemide 40 mg 06/26/23 09:00 07/02/23 08:47 Furosemide 40 Mg Tablet PO 40 mg DAILY [facility] Administration Hydrochlorothiazide 25 mg 06/26/23 09:00 07/02/23 08:47 Hydrochlorothiazide 25 Mg Tablet PO 25 mg DAILY [facility] Administration Multivitamins Therapeutic 1 tablet 06/26/23 09:00 07/02/23 08:47 Multivitamins Therapeutic Tab (*Bkc) PO 1 tablet BID [facility] Administration Oxycodone/Acetaminophen 1 tab 07/02/23 00:54 07/02/23 01:15 Oxycodone/Acetaminophen (*Crx) 10-325 Mg Tablet PO 1 tab Q4H PRN Administration Pain Rated 7-10 Pantoprazole Sodium 20 mg 06/27/23 10:00 07/02/23 08:47 Pantoprazole Sod Sesquihydrate 20 Mg Tab PO 20 mg QAM [facility] Administration Potassium Chloride 20 meq 06/26/23 09:00 07/02/23 08:47 Potassium Chloride 20 Meq Er Tablet PO 20 meq DAILY [facility] Administration Radiology Results: ITS Impressions Venous Doppler Study 06/25/23 08:27 IMPRESSION: 1. No deep venous thrombosis. Note that the calf veins were not evaluated at the patient's request because of pain. Lower Extremity CT 06/29/23 10:04 IMPRESSION: 1. Cellulitis with several focal lenticular regions of soft tissue density contiguous with the skin surface of the right calf. Unclear whether this represents thickened soft tissue or complex fluid including hematomas. Neoplasm would be unlikely given the multiplicity. Line 2. No soft tissue gas to suggest necrotizing fasciitis or organized peripherally enhancing abscess identified. Labs Labs: L
[2023-07-02] MEDS: CEFDINIR 300 MG CAPSULE PO (10:55)
[2023-07-02] MEDS: DOXYCYCLINE HYCLATE 100 MG TABLET PO (10:55)
--- NOTE | 2023-07-02 11:16 | PM.DS ---
DS: Admitting Diagnosis Discharge Date 07/02/23 Admitting Diagnosis cellulitis of right lower leg DS: Discharge Diagnosis Discharge Diagnosis (1) Cellulitis of right leg: Code(s): L03.115 - Cellulitis of right lower limb Status: Acute (2) Cellulitis: Code(s): L03.90 - Cellulitis, unspecified Status: Acute (3) Hypertension: Code(s): I10 - Essential (primary) hypertension Status: Acute (4) Obesity (BMI 35.0-39.9 without comorbidity): Code(s): E66.9 - Obesity, unspecified Status: Acute (5) Diverticular disease: Code(s): K57.90 - Diverticulosis of intestine, part unspecified, without perforation or abscess without bleeding Status: Acute Plan 1) cellulitis of RLE, non purulent WBC stable on IV AB D/C cefazolin per ID, started on rocephin 06/30 in pm for better coverage and con't vancomycin f/u blood cultures 07/01 - area of cellulitis has continued depreciation along inner top border, edema has decreased in foot and right toes. Rogers consulted - recommend local wound care and continue to monitor ct RLE w wo con was negative for abscess, nec. fasciitis pain control improved overnight, adjusted percocet dose to home dose for pain control Transition patient to oral abx 07/02, will send home on omnicef and doxycyline PO 2) right foot fracture, 5th phalanx - healing. WBAT FEN: cardiac diet, saline lock IV GI prophylaxis: on home PPI DVT prophylaxis: lovenox Lines: pIV Code Status: Full Code Dispo: stable. DS: Summary Hospital Course Hospital Course: 57-year-old female with hypertension admitted for evaluation of worsening cellulitis in the right leg on 06/25. The [place] a park and had imaging done at and outside facility which unremarkable. About a week thereafter she was seen in this ED with worsening pain at which time she was found to have a healing fracture of the right 5th proximal phalanx. There were concerns for cellulitis of the right lower leg as well and she was prescribed Augmentin. Despite the antibiotic she continued to have increasing pain and swelling in the leg and she reports several blood blisters about the leg which have known retracted and decreased in size. She denies fever, chills sweats, nausea, and vomiting. No history of MRSA. WBC has remained stable. Right lower extremity venous Doppler ultrasound was negative for DVT though caps were not evaluated at the patient's request due to pain. Patient reports swelling has improved from admission. She is in much better spirits this morning and would like to go home. She reports her pain was much better controlled through the night with adjusted medication dose to meet her chronic at home baseline needs. Tolerating PO intake, Up and moving around her room ad anna. She received course of IV Vancomycin and ceftriaxone which have been transitioned to oral omnicef and doxycycline. Pain is well managed at this time, will send home on oral antibiotics, wound care instructions and recommend follow up with her personal wound care MD. Status at Discharge Functional status at discharge: independent ambulation Overall status at discharge: patient is progressing back to baseline Time Spent with Patient Time attestation: Total time spent providing and/or coordinating discharge services: Exam Narrative: General:?Well-developed, female up out of bed in no acute distress. A&O x3. HEENT:??PERRL, EOMI. Sclera anicteric.? Oral mucosa moist.? Neck:??Supple. Respiratory:?Lungs are clear to auscultation bilaterally. Cardiovascular:??RRR Gastrointestinal:??Abdomen is soft, nontender, and nondistended with positive bowel sounds. Skin:??Warm and dry. Irregularly shaped warm erythematous on the right lower leg not quite circumferential around the calf. There is a soft tissue hematoma on the right lateral lower leg above the lateral malleolus with a small open area. There was another larger blood blister the medial
--- NOTE | 2023-07-02 11:35 | PCDIET ---
Nutrition Rescreen: LOS day 7. Patient admitted due to cellulitis of right leg. Patient reports she is feeling much better and appetite is good. She expects to go home today. UBW: 243 lbs. No weight changes noted. Denies nausea, vomiting, diarrhea, constipation. Patient consuming 90-100% x 2-3 meals/day. RS7: 07/09
== END 2023-07-02 13:29 | disposition home or self-care (01) | DRG 603 ==
LOC: ANHED 07:16 → ANH3MEDSUR 11:30
PROVIDERS: Emergency Medicine; General Practice; Internal Medicine; Physician Assistant; Admitting Provider Internal Medicine; Emergency Provider Emergency Medicine; PCP Family Medicine; Visit Provider Nurse Practitioner
DX: L03.115 Cellulitis of right lower limb (principal); E66.9 Obesity, unspecified; Z68.37 Body mass index [BMI] 37.0-37.9, adult; K57.90 Diverticulosis of intestine, part unspecified, without perforation or abscess without bleeding; I10 Essential (primary) hypertension; M19.90 Unspecified osteoarthritis, unspecified site; S92.811G Other fracture of right foot, subsequent encounter for fracture with delayed healing; W19.XXXD Unspecified fall, subsequent encounter; Z85.89 Personal history of malignant neoplasm of other organs and systems; Z90.3 Acquired absence of stomach [part of]
CPT/HCPCS: 36415; 73701; 80048; 80053; 80202; 82565; 85025; 85027; 85610; 85730; 87040; 93971; 96365; 96367; 96375; 99285; A9270; G0378; J0690; J0696; J1170; J1650; J2270; J3370; Q9967

== ENCOUNTER 2023-08-23 14:11 | Inpatient (IN) | payer MEDICARE, MEDICAID, SELFPAY ==
--- NOTE | ~2023-08-23 | US_ITS ---
EXAMINATION: US_ABSCYSTIMG_US DATE: 08/30/2023 13:12 INDICATION: Subcutaneous fluid collection at the right knee TECHNIQUE: The procedure including the risks and benefits was discussed with the patient. Risks discu ssed included bleeding, allergic reaction and infection. The patient understood the risks and agreed to proceed. The skin overlying the anterolateral aspect of the right knee was prepped and draped in usual sterile fashion. Anesthetic was administered with 1% lidocaine subcutaneously. An 18 gauge sp inal needle was advanced under continuous ultrasound observation into the complex fluid collection. 2 0 mL of mixed bloody fluid containing thicker components of opaque yellowish purulent appearing fluid was aspirated and sent to the lab for Gram stain and cultures. The needle was removed and the entry site was cleaned and dressed. Post procedure ultrasound demonstrated no hemorrhage. FINDINGS: Ultrasound images demonstrate a non organized-appearing approximately 4.4 x 2.6 cm complex subcutaneous fluid collection with irregular margins. Subsequent images demonstrate the needle within the fluid collection which is significantly decreased in size at the conclusion of the procedure. IMPRESSION: 1. Successful Ultrasound-guided aspiration of a complex subcutaneous fluid collection at the anterola teral right knee which yielded mixed bloody and purulent appearing fluid concerning for infection or potentially hematoma with secondary superinfection. Reviewed, dictated and finalized at location A. GER STARS IMPRESSION: 1. Successful Ultrasound-guided aspiration of a complex subcutaneous fluid veronica ection at the anterolateral right knee which yielded mixed bloody and purulent appearing fluid concerning for infection or potentially hematoma with secondary superinfection.
--- NOTE | ~2023-08-23 | MR_ITS ---
EXAMINATION: MR knee RT wo/w con DATE: 08/27/2023 15:35 INDICATION: Right knee pain and swelling TECHNIQUE: Magnetic resonance imaging (MRI) of the right knee was performed without and with 20 mL Mu ltihance intravenous contrast. Sequences included coronal PD-weighted FSE, coronal PD-weighted FS FS E, sagittal T2-weighted FSE, sagittal PD-weighted FS FSE and axial PD weighted fat saturated FSE. COMPARISON: None. FINDINGS: There is prominent subcutaneous edema along the anterolateral aspect of the distal right thigh, right knee and proximal lower leg. Peripheral enhancement along the margins of a lobular fluid collection measuring 8.4 x 5.1 x 5.2 cm within the subcutaneous fat and abutting the superficial aspect of the l ateral patellar retinaculum. There is no deeper knee joint effusion. There is normal bone marrow sign al with no evident osteolysis, fracture or pathologic marrow replacing process. The medial and lateral menisci of the knee as well as a articular cartilage in the medial lateral com partment sparing normal although sensitivity is mildly decreased due to the larger [id number] of i maging than on a standard knee MRI. Mild patellofemoral osteoarthritis with small marginal osteophyte s and partial thickness cartilage loss without degenerative subchondral changes at the medial trochle a. Patellar cartilage appears relatively preserved. Anterior and posterior cruciate ligaments are normal. The medial collateral ligament and fibular veronica ateral ligament complex are normal. The patellar tendon is normal. Small enthesophytes at the patella r insertion of the distal quadriceps tendon. There is moderate tendinopathy and mild partial thicknes s tear at the lateral side of the patellar insertion of the distal quadriceps tendon. The tear is imm ediately adjacent to the lucency described fluid collection which would favor a posttraumatic hematom a or abscess. The visualized medial and lateral hamstring tendons as well as the iliotibial band are normal. IMPRESSION: 1. Moderate tendinopathy and mild partial tear of the lateral patellar insertion of the distal sharif ceps tendon. 2. Peripheral enhancement at a 8.4 x 5.1 x 5.2 cm complex lobular fluid collection in the deep subcut aneous fat at the anterolateral aspect of the knee in close proximity to the quadriceps tendon tear m ost likely representing an associated posttraumatic hematoma although differential would include absc ess in the appropriate clinical setting. If clinically indicated ultrasound-guided aspiration could b e obtained for further evaluation. 3. Mild patellofemoral osteoarthritis. Reviewed, dictated and finalized at location A. ING UP MACHINE OPERATOR IMPRESSION: 1. Moderate tendinopathy and mild partial tear of the lateral patellar insertio n of the distal quadriceps tendon. 2. Peripheral enhancement at a 8.4 x 5.1 x 5.2 cm complex lobular fluid collect ion in the deep subcutaneous fat at the anterolateral aspect of the knee in frannie se proximity to the quadriceps tendon tear most likely representing an associat ed posttraumatic hematoma although differential would include abscess in the ap propriate clinical setting. If clinically indicated ultrasound-guided aspiratio n could be obtained for further evaluation. 3. Mild patellofemoral osteoarthritis.
--- NOTE | ~2023-08-23 | XR_ITS ---
EXAMINATION: XR knee RT min 4V DATE: 08/23/2023 17:02 INDICATION: Right knee pain. Erythema. TECHNIQUE: 4 views of right knee were obtained. COMPARISON: Right tibia and fibula radiographs 06/22/2023 FINDINGS: Bone alignment is normal. No fracture. There is mild tricompartmental osteoarthritis. No kn ee joint effusion. IMPRESSION: 1. Mild right knee osteoarthritis. Reviewed, dictated and finalized at location A. APPLICATION DEVELOPER
[2023-08-23 14:29] VITALS: BP 105/61; PULSE 83; RESP 17; TEMP 36.4; O2SAT 99
[2023-08-23 16:26] LABS: Basophils Absolute Auto 0.1 K/mm3 (0.0-0.1); Basophils Percent Auto 0.6 % (0.2-1.2); Eosinophils Absolute Auto 0.1 K/mm3 (0-0.3); Eosinophils Percent Auto 1.2 % (0-4.4); Hematocrit 39.2 % (37.0-47.0); Hemoglobin 11.3 g/dL (12.0-15.0); Immature Granulocyte Absolute 0.04 K/mm3 (0.00-0.031); Immature Granulocyte Percent A 0.4 % (0-0.5); Lymphocytes Absolute Auto 2.82 K/mm3 (0.9-3.2); Mean Corpuscular HGB Conc 28.8 g/dl (32-36); Mean Corpuscular Hemoglobin 26.8 pg (26-34); Mean Corpuscular Volume 93.1 fl (80-100); Monocytes Absolute Auto 0.7 K/mm3 (0.1-0.6); Monocytes Percent Auto 6.2 % (2.6-8.5); Neutrophils Absolute Auto 6.7 K/mm3 (1.3-6.7); Neutrophils Percent Auto 64.6 % (45.5-73.1); Platelet Count Result 483 k/mm3 (150-375); Red Blood Count 4.21 M/mm3 (4.2-5.4); Red Cell Distribution Width 15.4 % (11.5-14.5); White Blood Count 10.4 K/mm3 (4.5-10.0)
[2023-08-23 16:43] LABS: Anion Gap 4 mmol/L (8-16); Blood Urea Nitrogen 23 mg/dL (7-17); Calcium 9.1 mg/dL (8.4-10.2); Carbon Dioxide 31 mmol/L (22-30); Chloride 103 mmol/L (98-107); Estimated CRCL calculation 80 ml/min; Estimated Glomerular Filt Rate > 60; Glucose 123 mg/dL (65-110); Potassium 3.3 mmol/L (3.4-5.0); Sodium 138 mmol/L (137-145); Uric Acid 4.4 mg/dL (2.5-7.5)
[2023-08-23] MEDS: HYDROcodone/acetaminophen (*CRX) 5-325 MG TABLET 1 TAB PO (16:46)
[2023-08-23 16:52] LABS: Platelet Estimate Increased (Adequate); Schistocytes None Seen (NORMAL)
[2023-08-23 16:53] LABS: Anisocytosis 1+ (NORMAL); Hypochromasia 1+ (NORMAL)
[2023-08-23 16:54] LABS: Erythrocyte Sedimentation Rate 74 mm/hr (0-20)
[2023-08-23 16:55] LABS: CRP 12.1 mg/dL (<1.0)
--- NOTE | 2023-08-23 17:01 | ED.EXTPRO ---
HPI - Extremity Problem General Chief complaint: Extremity Problem,Nontraumatic <Brinda Andrade PA-C - Last Filed: 08/24/23 09:18> Stated complaint: right lower extremity wound <KELLIE Lopez Last Filed: 08/24/23 09:18> Time Seen by Provider: 08/23/23 16:56 <Brinda Andrade PA-C - Last Filed: 08/24/23 09:18> Source: patient <KELLIE Lopez Last Filed: 08/24/23 09:18> Mode of arrival: wheelchair <KELLIE Lopez Last Filed: 08/24/23 09:18> Limitations: no limitations <KELLIE Lopez Last Filed: 08/24/23 09:18> History of Present Illness HPI Narrative: This is a 57 year old female that presents to the ER for right knee pain and swelling. Ongoing over the last 3 days. Reports overlying redness. Has a chronic wound to the right lower extremity. Reports decreased ROM due to pain. Denies numbness. <Brinda Andrade PA-C - Last Filed: 08/24/23 09:18> Related Data Home medications: Home Medications Medication Instructions Recorded Confirmed ferrous gluconate 324 mg (38 mg 324 mg PO DAILY 03/25/21 08/23/23 iron) tablet hydrochlorothiazide 25 mg tablet 25 mg PO DAILY 03/25/21 08/23/23 cyclobenzaprine 10 mg tablet 10 mg PO DAILY PRN Muscle Spasm 06/25/23 08/23/23 furosemide 40 mg tablet (Lasix) 40 mg PO DAILY 06/25/23 08/23/23 multivitamin (Daily Multi-Vitamin 1 tablet PO BID 06/25/23 08/23/23 tablet) potassium chloride 20 mEq 20 meq PO DAILY 06/25/23 08/23/23 tablet,extended release (K-Tab) lansoprazole 30 mg capsule,delayed 30 mg PO DAILY 06/26/23 08/23/23 release hydrocodone 10 mg-acetaminophen 1 tablet PO Q6H PRN Pain (Scale 08/23/23 08/23/23 325 mg tablet Score 4-6) <KELLIE Lopez Last Filed: 08/24/23 09:18> Allergies/Adverse reactions: Allergies Allergy/AdvReac Type Severity Reaction Status Date / Time fluticasone [From Flonase] Allergy Mild Unknown Verified 06/25/23 13:40 cefdinir AdvReac Intermediate Hives Verified 08/24/23 05:06 doxycycline AdvReac Intermediate Hives Verified 08/24/23 05:07 atorvastatin AdvReac Headache Verified 06/25/23 13:40 <Brinda Andrade PA-C - Last Filed: 08/24/23 09:18> Review of Systems Review of Systems: CONSTITUTIONAL: Denies fever MUSCULOSKELETAL: Reports joint pain, and myalgia. <Brinda Andrade PA-C - Last Filed: 08/24/23 09:18> All systems reviewed & are unremarkable except as noted in HPI and below <Brinda Andrade PA-C - Last Filed: 08/24/23 09:18> [facility] Past Medical History Medical History: Medical History Arthritis Asthma Diverticulitis Esophageal perforation Hypertension Neuroendocrine carcinoma <Brinda Andrade PA-C - Last Filed: 08/24/23 09:18> Surgical History Surgical History: Surgical History History of colon resection For neuroendocrine carcinoma. History of esophageal surgery Repair of accidental perforation during procedure. History of sleeve gastrectomy <Brinda Andrade PA-C - Last Filed: 08/24/23 09:18> Family History Family History: Family History Mother Hypertension Father Hypertension <KELLIE Lopez Last Filed: 08/24/23 09:18> Social History Social History: Social History Social History: Surrogate medical decision maker: Eladio Garcia (son) or Altagracia Christian (mother). Code status: Full code. Smoking status: Never smoker Alcohol intake: never Substance use: never Substance use type: does not use Lack of Transportation: No Lack of Food: Never True Current Housing: I Have Housing Concerned About Future Housing: No Difficulty Paying Gas/Electric Bills: No Difficulty Paying for Meds: No Currently Unemployed: No Education: Associate Degree D
[2023-08-23] MEDS: HYDROmorphone HCL INJ (*CRX) 1 MG/ML SYR 0.5 MG IV PUSH ×3 (18:58→23:09)
--- NOTE | 2023-08-23 19:00 | ECG_ITS ---
Measurements Intervals [place] Rate: 97 P: 32 CO: 173 QRS: -18 QRSD: 85 T: 10 QT: 269 QTc: 343 Interpretive Statements SINUS RHYTHM SEPTAL MYOCARDIAL INFARCTION , PROBABLY OLD [40+ ms Q WAVE IN V1/V2] NONSPECIFIC T-WAVE ABNORMALITY CAN NOT RULE OUT INFERIOR INFARCTION ABNORMAL ECG NO PREVIOUS ECG AVAILABLE FOR COMPARISON Electronically Signed On 08-24-2023 16:53:32 AUTO MECHANICS INSTRUCTOR by Jesse Maynard M.D.
--- NOTE | 2023-08-23 19:34 | PM.IMHP ---
H&P: HPI History of Present Illness Date/Time: 08/23/23 19:34 Chief Complaint: RLE tenderness Narrative: This is a 57-year-old female with past medical history significant for morbid obesity, chronic bilateral lower extremity lymphedema, neuroendocrine tumor in remission, hypertension, chronic right lower extremity multiple ulcers on healing for 6+ months. Patient presents to the emergency room due to right lower extremity tenderness warmth redness localized to the upper 3rd of the leg in the lateral aspect and surrounding the knee. Patient denies any fevers, rigors, chills, nausea, vomiting, diarrhea has had good appetite, no shortness of breath, no cough, no sputum production. Developed swelling redness warmth and tenderness in this area very tender to the touch. Patient has been admitted for further evaluation management and treatment. EXAMINATION: XR knee RT min 4V DATE: 08/23/2023 17:02 INDICATION: Right knee pain. Erythema. TECHNIQUE: 4 views of right knee were obtained. COMPARISON: Right tibia and fibula radiographs 06/22/2023 FINDINGS: Bone alignment is normal. No fracture. There is mild tricompartmental osteoarthritis. No knee joint effusion. IMPRESSION: 1. Mild right knee osteoarthritis. Review of Systems Review of Systems: Right lower extremity tenderness warmth redness tender to the touch Constitutional: Constitutional: Denies chills, Denies fatigue, Denies fever(s), Denies frequent falls, Denies malaise, Denies night sweats, Denies poor appetite and Denies weakness Eyes: Eyes: Denies change in vision ENT: Denies dysphagia, Denies vertigo, Denies dizziness and Denies odynophagia Cardiovascular: Cardiovascular: Denies chest pain, Denies lightheadedness, Denies radiating jaw, neck or arm pain and Denies palpitations Respiratory: Respiratory: Denies cough and Denies excessive phlegm production Gastrointestinal: Gastrointestinal: Denies abdominal pain, Denies dyspepsia, Denies heartburn, Denies diarrhea, Denies nausea and Denies vomiting Genitourinary: Genitourinary: Denies dysuria and Denies flank pain Musculoskeletal: Musculoskeletal: Reports limited range of motion (Right lower extremity knee) Integumentary/Breasts: Skin/Breast: Reports non-healing lesions, Reports erythema, Reports skin pain, Reports skin swelling and Reports skin ulcer Neurologic: Denies focal weakness and Denies Sensory deficit (Neuro) Psychiatric: Psychiatric: Reports no additional psychiatric complaints and Reports as per HPI Endocrine: Endocrine: Denies cold intolerance, Denies fatigue, Denies flushing, Denies heat intolerance, Denies polyphagia, Denies polydipsia and Denies palpitations Hematologic/Lymphatic: Hematologic/Lymphatic: Reports no additional hematologic/lymphatic complaints and Reports as per HPI Allergic/Immunologic: Allergic/Immunologic: Reports no additional allergic/immunologic complaints and Reports as per HPI PMFSH Past Medical History Medical History Arthritis Asthma Diverticulitis Esophageal perforation Hypertension Neuroendocrine carcinoma Surgical History Surgical History History of colon resection For neuroendocrine carcinoma. History of esophageal surgery Repair of accidental perforation during procedure. History of sleeve gastrectomy Family History Family History Mother Hypertension Father Hypertension Social History Social History Social History: Surrogate medical decision maker: Eladio Garcia (son) or Altagraciadroian Christian (mother). Code status: Full code. Smoking status: Never smoker Alcohol intake: never Substance use: never Substance use type: does not use Lack of Transportation: No Lack of Food: Never True Current Housing: I Have [facility]
[2023-08-23 19:59] LABS: INR 1.2; Prothrombin Time 16.2 Seconds (11.1-14.7)
[2023-08-23 20:04] VITALS: PULSE 111; RESP 17; O2SAT 98
[2023-08-23 20:15] VITALS: BP 115/83; PULSE 112; RESP 14; O2SAT 96
[2023-08-23 20:54] VITALS: BP 151/66; PULSE 103; RESP 21; O2SAT 95
[2023-08-23 22:10] VITALS: BP 132/84; PULSE 101; RESP 16; TEMP 37.2; O2SAT 100
--- NOTE | 2023-08-23 22:25 | ADMGEN ---
This patient, Tripp Garcia, was admitted to [facility] Surg Room 314-02. Patient/family oriented to hospital policies and general routines including ID bracelet, bed and alarms, visiting hours, pain management, procedures, bathroom and other care routines, personal items, smoking policy, room service/diet, and visiting hours. Information on how to activate the Rapid Response Team has been discussed. Patient/Family are encouraged to report perceived risks to care and to ask questions if they do not understand what they are told or what they should do.
[2023-08-23 22:59] VITALS: BMI 36.4
[2023-08-24] MEDS: HYDROmorphone HCL INJ (*CRX) 1 MG/ML SYR 0.5 MG IV PUSH ×4 (01:53→21:11)
[2023-08-24] MEDS: CYCLOBENZAPRINE HCL 10 MG TABLET PO ×3 (01:54→21:11)
[2023-08-24 03:04] LABS: Influenza A QL RT-PCR Negative (Negative); Influenza B QL RT-PCR Negative (Negative)
[2023-08-24 04:10] VITALS: BP 101/52; PULSE 95; RESP 16; TEMP 36.2; O2SAT 95
[2023-08-24] MEDS: HYDROcodone/acetaminophen (*CRX) 10-325 MG TABLET 1 TAB PO ×3 (05:15→18:17)
[2023-08-24] MEDS: VANCOMYCIN 1,250 MG/NS 250 ML 1,250 MG/250 ML BAG 166.67 MG IVPB ×2 (05:20→08:59)
[2023-08-24 07:02] LABS: MRSA (PCR) NOT DETECTED (NOT DETECTE)
--- NOTE | 2023-08-24 08:04 | PM.CNOR ---
Assessment and Plan Assessment and plan (1) Cellulitis of right leg: Code(s): L03.115 - Cellulitis of right lower limb Status: Acute Assessment and Plan: Asked to see patient for right knee redness and swelling. At this point appears to be cellulitis. No effusion palpable. New patient evaluation for chief complaint Right leg cellulitis. History, physical exam and radiographs reviewed with the patient. Discussed the condition, nature, etiology and course of natural history with the patient. Treatment options including surgical and nonoperative treatment were reviewed. Risks and benefits of each as well as alternatives reviewed. The patient's questions were answered. Conservative treatment ice, compression and elevation. Will monitor patient on IV antibiotics. If shows positive response will continue with same treatment. If no improvement or worsening may need aspiration. History of Present Illness HPI Consult date: 08/24/23 Requesting physician: Yuri Zamora PA-C Chief complaint: Right Knee Cellulitis/Right Leg Ulcerations Narrative: 57-year-old woman with a history of right lower leg skin ulcers and cellulitis. Noted to have right leg cellulitis and October treated with course of oral antibiotics. Presented to the emergency room yesterday with worsening redness and swelling of the right leg and pain at the knee. States difficulty walking. She has a history of arthritis of the right knee and receives cortisone injections regularly. Review of Systems Constitutional: Constitutional: Denies fever(s) Eyes: Eyes: Denies blurry vision ENT: Reports Normal hearing present Cardiovascular: Cardiovascular: Denies chest pain and Denies dyspnea Respiratory: Respiratory: Denies dyspnea and Denies wheezing Gastrointestinal: Gastrointestinal: Denies abdominal pain Genitourinary: Genitourinary: Denies urinary urgency Musculoskeletal: Musculoskeletal: Reports as per HPI and Denies numbness Integumentary/Breasts: Skin/Breast: Denies changing lesions and Denies sores Neurologic: Reports Normal hearing present, Denies behavioral changes, Denies confusion, Denies numbness and Denies convulsions Psychiatric: Psychiatric: Denies behavioral changes, Denies confusion and Denies hallucinations Endocrine: Endocrine: Denies heat intolerance Hematologic/Lymphatic: Hematologic/Lymphatic: Denies easy bleeding Allergic/Immunologic: Allergic/Immunologic: Denies wheezing PMFSH Past Medical History Medical History Arthritis Asthma Diverticulitis Esophageal perforation Hypertension Neuroendocrine carcinoma Surgical History Surgical History History of colon resection For neuroendocrine carcinoma. History of esophageal surgery Repair of accidental perforation during procedure. History of sleeve gastrectomy Family History Family History Mother Hypertension Father Hypertension Social History Social History Social History: Surrogate medical decision maker: Eladio Garcia (son) or Altagracia Christian (mother). Code status: Full code. Smoking status: Never smoker Alcohol intake: never Substance use: never Substance use type: does not use Lack of Transportation: No Lack of Food: Never True Current Housing: I Have Housing Concerned About Future Housing: No Difficulty Paying Gas/Electric Bills: No Difficulty Paying for Meds: No Currently Unemployed: No Education: Associate Degree Difficulty w/ Childcare or Family Care: No Spiritual care concerns: No Meds Home Medications and Allergies Home Medications Medication Instructions Recorded Confirmed Type ferrous gluconate 324 mg (38 mg 324 mg PO DAILY 03/25/21 08/23/23 History iron) tablet hydrochloroth
[2023-08-24 08:07] LABS: Basophils Percent Auto 0.5 % (0.2-1.2); Eosinophils Absolute Auto 0.1 K/mm3 (0-0.3); Eosinophils Percent Auto 1.2 % (0-4.4); Hematocrit 31.5 % (37.0-47.0); Hemoglobin 9.6 g/dL (12.0-15.0); Immature Granulocyte Absolute 0.03 K/mm3 (0.00-0.031); Immature Granulocyte Percent A 0.4 % (0-0.5); Lymphocytes Absolute Auto 2.85 K/mm3 (0.9-3.2); Lymphocytes Percent Auto 37.8 % (18.3-44.2); Mean Corpuscular HGB Conc 30.5 g/dl (32-36); Mean Corpuscular Hemoglobin 27.6 pg (26-34); Mean Corpuscular Volume 90.5 fl (80-100); Mean Platelet Volume 8.8 fl (7.4-10.4); Monocytes Absolute Auto 0.6 K/mm3 (0.1-0.6); Monocytes Percent Auto 8.5 % (2.6-8.5); Neutrophils Absolute Auto 3.9 K/mm3 (1.3-6.7); Neutrophils Percent Auto 51.6 % (45.5-73.1); Platelet Count Result 420 k/mm3 (150-375); Red Blood Count 3.48 M/mm3 (4.2-5.4); Red Cell Distribution Width 15.4 % (11.5-14.5); White Blood Count 7.5 K/mm3 (4.5-10.0)
[2023-08-24 08:28] LABS: Anion Gap 5 mmol/L (8-16); Blood Urea Nitrogen 10 mg/dL (7-17); Calcium 8.4 mg/dL (8.4-10.2); Carbon Dioxide 28 mmol/L (22-30); Chloride 101 mmol/L (98-107); Estimated CRCL calculation 172 ml/min; Estimated Glomerular Filt Rate > 60; Glucose 100 mg/dL (65-110); Potassium 3.1 mmol/L (3.4-5.0); Sodium 134 mmol/L (137-145)
--- NOTE | 2023-08-24 08:32 | PCOTNOTE ---
Per hospitalist, Radha Bates, pt. is bedrest for today for conservative treatment of knee, OT/PT evaluation should be attempted 08/25, if pt. appropriate to mobilize at that time.
[2023-08-24] MEDS: PIPERACILLN/TAZ 3.375GM/NS50ML 3.375 GM/50 ML BAG IVPB ×2 (08:59→10:45)
[2023-08-24] MEDS: MULTIVITAMINS THERAPEUTIC TAB (*BKC) 1 TABLET PO ×2 (09:02→16:47)
[2023-08-24] MEDS: PANTOPRAZOLE 40 MG TABLET PO (09:02)
[2023-08-24] MEDS: POTASSIUM CHLORIDE 20 MEQ ER TABLET 40 MEQ PO (09:02)
[2023-08-24] MEDS: FERROUS GLUCONATE 324 MG TABLET PO (09:03)
[2023-08-24] MEDS: hydroCHLOROthiazide 25 MG TABLET PO (09:03)
[2023-08-24 14:00] VITALS: BP 114/53; PULSE 93; RESP 16; TEMP 36.3; O2SAT 96
--- NOTE | 2023-08-24 15:18 | PM.IMPN ---
Progress Note: A&P Assessment and Plan (1) Cellulitis of right leg: Code(s): L03.115 - Cellulitis of right lower limb Status: Acute Assessment and Plan: wound consulted for management gen surgery consulted for possible I&D, Rogers saw patient in June Vancomyin and Unasyn ortho consulted - may need aspiration if no response to treatment ice, elevation and compression for knee (2) Wound of right lower extremity: Qualifiers: Encounter type: subsequent encounter Qualified Code(s): S81.801D - Unspecified open wound, right lower leg, subsequent encounter Code(s): S81.801A - Unspecified open wound, right lower leg, initial encounter Status: Acute Assessment and Plan: wound consulted for management gen surgery consulted for possible I&D, Rogers saw patient in June Vancomyin and Unasyn (3) Hypertension: Code(s): I10 - Essential (primary) hypertension Status: Acute Assessment and Plan: continue home meds (4) Obesity (BMI 35.0-39.9 without comorbidity): Code(s): E66.9 - Obesity, unspecified Status: Chronic Assessment and Plan: Lifestyle and diet modifications Subjective Date/time seen: 08/24/23 15:18 Interval history: Patient is a 57 YO female with pmh significant for morbid obesity, chronic bilateral lower extremity lymphedema, neuroendocrine tumor in remission, hypertension, chronic right lower extremity multiple ulcers on healing for 6+ months. Patient was last here in June for cellulitis in her right leg. Patient denies any fevers, rigors, chills, nausea, vomiting, diarrhea has had good appetite, no shortness of breath, no cough, no sputum production. Developed swelling redness warmth and tenderness in this area very tender to the touch. Ortho consulted and recommended conservative management for now, continue to monitor response to AB therapy and consider aspiration if poor response. Wound consulted and gen surgery consulted for possible I&D, as Rogers saw her in June. Will await recommendations. Review of Systems Review of Systems: Right lower extremity tenderness warmth redness tender to the touch Exam Narrative: GENERAL: Well-appearing, obese, and in no acute distress. HEAD: Normocephalic, atraumatic. EYES: EOMI. PERRLA. CHEST: Clear to auscultation. No respiratory distress. No wheezes rales or rhonchi HEART: RRR. No murmur heard. Normal peripheral pulses. EXTREMITIES: Decreased active ROM in the right knee due to pain. Edema to the bilateral lower extremities. Normal DP pulses. Normal sensation. Right knee with mild edema with overlying redness. 3 large ulcerating wounds to the right lower leg without surrounding erythema. SKIN: Warm, dry, no rash. NEURO: No focal deficits. Alert and oriented x3. PSYCH: Normal mood and affect Objective Data Vital Signs Vital Signs: Vital Signs - 24 hr 08/23/23 20:04 08/23/23 20:15 08/23/23 20:54 Temperature Pulse Rate 111 H 112 H 103 H Respiratory Rate 17 14 21 H Blood Pressure 115/83 151/66 H Pulse Oximetry 98 96 95 Oxygen Delivery 08/23/23 22:10 08/24/23 04:10 08/24/23 08:00 Temperature 98.9 F 97.2 F L Pulse Rate 101 H 95 Respiratory Rate 16 16 Blood Pressure 132/84 101/52 L Pulse Oximetry 100 95 Oxygen Delivery Room Air 08/24/23 14:00 Temperature 97.3 F L Pulse Rate 93 Respiratory Rate 16 Blood Pressure 114/53 L Pulse Oximetry 96 Oxygen Delivery Intake/Output Intake/Output: Intake & Output 08/21/23 08/22/23 08/23/23 08/24/23 23:59 23:59 23:59 23:59 Intake Total 660 Balance 660 Meds/Results Medications: Active Medications Generic Name Dose Route Start Last Admin Trade Name Freq PRN Reason Stop Dose Admin Hydrocodone Bitart/Acetaminophen 1 tab 08/23/23 23:16 08/24/23 12:31 Hydrocodone/Acetaminophen (*Crx) 10-325 Mg Tablet PO 1 tab Q6H PRN Administration Pain (Scale Score 4-6) Cyc
[2023-08-24] MEDS: VANCOMYCIN 1,500 MG/NS 500 ML 1,500 MG/500 ML BAG 250 MG IVPB (15:41)
[2023-08-24] MEDS: AMPICILLIN SULB 3 GM/NS 100 ML 3 GM/100 ML VIAL IVPB (17:45)
[2023-08-24 22:00] VITALS: BP 122/64; PULSE 101; RESP 18; TEMP 37; O2SAT 94
[2023-08-25] MEDS: AMPICILLIN SULB 3 GM/NS 100 ML 3 GM/100 ML VIAL IVPB ×4 (00:45→18:37)
[2023-08-25] MEDS: HYDROcodone/acetaminophen (*CRX) 10-325 MG TABLET 1 TAB PO ×4 (00:45→20:06)
[2023-08-25] MEDS: VANCOMYCIN 1,500 MG/NS 500 ML 1,500 MG/500 ML BAG 250 MG IVPB ×2 (04:23→16:14)
[2023-08-25] MEDS: HYDROmorphone HCL INJ (*CRX) 1 MG/ML SYR 0.5 MG IV PUSH (04:38)
[2023-08-25 06:00] VITALS: BP 98/64; PULSE 76; RESP 16; TEMP 36.1; O2SAT 97
[2023-08-25 07:10] LABS: Basophils Absolute Auto 0.1 K/mm3 (0.0-0.1); Basophils Percent Auto 0.7 % (0.2-1.2); Eosinophils Absolute Auto 0.1 K/mm3 (0-0.3); Eosinophils Percent Auto 1.1 % (0-4.4); Hemoglobin 9.9 g/dL (12.0-15.0); Immature Granulocyte Absolute 0.03 K/mm3 (0.00-0.031); Immature Granulocyte Percent A 0.3 % (0-0.5); Lymphocytes Absolute Auto 2.63 K/mm3 (0.9-3.2); Lymphocytes Percent Auto 29.9 % (18.3-44.2); Mean Corpuscular HGB Conc 29.1 g/dl (32-36); Mean Corpuscular Volume 92.9 fl (80-100); Mean Platelet Volume 8.9 fl (7.4-10.4); Monocytes Absolute Auto 0.9 K/mm3 (0.1-0.6); Monocytes Percent Auto 9.8 % (2.6-8.5); Neutrophils Absolute Auto 5.1 K/mm3 (1.3-6.7); Neutrophils Percent Auto 58.2 % (45.5-73.1); Platelet Count Result 407 k/mm3 (150-375); Red Blood Count 3.66 M/mm3 (4.2-5.4); Red Cell Distribution Width 15.4 % (11.5-14.5); White Blood Count 8.8 K/mm3 (4.5-10.0)
[2023-08-25 07:18] LABS: Anion Gap 7 mmol/L (8-16); Blood Urea Nitrogen 8 mg/dL (7-17); Calcium 8.4 mg/dL (8.4-10.2); Carbon Dioxide 31 mmol/L (22-30); Chloride 102 mmol/L (98-107); Estimated CRCL calculation 141 ml/min; Estimated Glomerular Filt Rate > 60; Glucose 110 mg/dL (65-110); Potassium 3.5 mmol/L (3.4-5.0); Sodium 140 mmol/L (137-145)
[2023-08-25 08:00] VITALS: BP 103/58; PULSE 83; RESP 18; TEMP 36.2; O2SAT 100
--- NOTE | 2023-08-25 08:00 | PM.PNORT ---
Progress Note: A&P Assessment and Plan (1) Cellulitis of right leg: Code(s): L03.115 - Cellulitis of right lower limb Status: Acute Assessment and Plan: Overall erythema and swelling improved right leg. Pain slightly improved. Able to move knee. No other signs of septic arthritis. Continue to follow on IV antibiotics. Subjective Subjective Date/Time Seen: 08/25/23 08:00 Principal diagnosis: Right leg cellulitis Interval history: patient states pain slightly improved. Exam Const: General: healthy appearing; No in distress or confusion Orientation/consciousness: oriented to person, oriented to place, oriented to time and No confusion HENMT: Head: normal to inspection, normocephalic and atraumatic Eyes: Conjunctivae: conjunctivae normal Sclera: sclerae normal Neck: Neck: supple and nontender Resp: Effort & Inspection: normal respiratory effort and no audible wheezes Cardio: Rate: regular rate Rhythm: regular rhythm Skin: General skin exam: no rashes or lesions noted Neuro: General: oriented to person, oriented to place, oriented to time and No confusion Extrem: Right upper extremity: normal to inspection Left upper extremity: normal to inspection Right lower extremity: hip/thigh Details: normal ROM; no tenderness, knee Details: tenderness (anterior and medial joint line ) Location: of the medial joint line (moderate ) and of the pre-patellar area (moderate ), swelling (peripatellar and medial joint ), abnormal ROM (active range of motion -10 degrees extension, 110 degrees flexion) Details: pain with active ROM during Details: in extension and in flexion, knee ligament exam normal Details: anterior drawer test normal, posterior drawer test normal, valgus stress test normal and Zena?s test normal, knee ligament exam abnormal Details: varus stress test normal (painful medial ) and Aggie's Test Details: positive medially and foot Details: normal capillary refill, toes with normal ROM, vascular exam Details: dorsalis pedis pulse present and motor-sensory exam Details: light-touch normal; no tenderness; no edema Left lower extremity: normal to inspection, normal capillary refill and knee Details: normal ROM (Active extension 5, flexion 130) and knee ligament exam normal; no tenderness Other: Erythema over the lateral aspect of the right knee. Tender to palpation. No warmth. Not able to palpate effusion. Able to flex and extend the knee. Moves ankle and toes. Good sensation to touch. Good capillary refill. Psych: Affect: normal affect Objective Data Vital Signs Vital Signs: Vital Signs - 24 hr 08/24/23 14:00 08/24/23 22:00 08/25/23 06:00 Temperature 97.3 F L 98.6 F 97 F L Pulse Rate 93 101 H 76 Respiratory Rate 16 18 16 Blood Pressure 114/53 L 122/64 98/64 L Pulse Oximetry 96 94 97 Intake/Output Intake/Output: Intake & Output 08/22/23 08/23/23 08/24/23 08/25/23 23:59 23:59 23:59 23:59 Intake Total 0 700 Balance 192 700 Meds/Results Medications: Active Medications Generic Name Dose Route Start Last Admin Trade Name Freq PRN Reason Stop Dose Admin Hydrocodone Bitart/Acetaminophen 1 tab 08/23/23 23:16 08/25/23 00:45 Hydrocodone/Acetaminophen (*Crx) 10-325 Mg Tablet PO 1 tab Q6H PRN Administration Pain (Scale Score 4-6) Cyclobenzaprine HCl 10 mg 08/23/23 23:16 08/24/23 21:11 Cyclobenzaprine Hcl 10 Mg Tablet PO 10 mg DAILY PRN Administration Muscle Spasm Ferrous Gluconate 324 mg 08/24/23 09:00 08/24/23 09:03 Ferrous Gluconate 324 Mg Tablet PO 324 mg DAILY [facility]ICO Administration Hydrochlorothiazide 25 mg 08/24/23 09:00 08/24/23 09:03 Hydrochlorothiazide 25 Mg Tablet PO 25 mg DAILY CHICO Administration Hydromorphone HCl 0.5 mg 08/23/23 19:34 08/25/23 04:38 Hydromorphone Hcl Inj (*Crx) 1 Mg/Ml Syr IV PUSH 0.5 mg Q4H PRN Administration Pain Rated 7-10 Vancomycin HCl 1,500 mg in 500 mls
[2023-08-25] MEDS: hydroCHLOROthiazide 25 MG TABLET PO (08:18)
[2023-08-25] MEDS: POTASSIUM CHLORIDE 20 MEQ ER TABLET 40 MEQ PO (08:18)
[2023-08-25] MEDS: FERROUS GLUCONATE 324 MG TABLET PO (08:18)
[2023-08-25] MEDS: PANTOPRAZOLE 40 MG TABLET PO (08:18)
[2023-08-25] MEDS: MULTIVITAMINS THERAPEUTIC TAB (*BKC) 1 TABLET PO ×2 (08:18→16:17)
--- NOTE | 2023-08-25 10:02 | PCOTNOTE ---
Spoke with hospitalist Meagan Franz, who plans to update activity orders from bedrest once reviewed, to allow for therapy services to evaluate pt. Nursing aware. Following.
--- NOTE | 2023-08-25 10:46 | PM.IMPN ---
Progress Note: A&P Assessment and Plan (1) Cellulitis of right leg: Code(s): L03.115 - Cellulitis of right lower limb Status: Acute Assessment and Plan: 08/24/23: wound consulted for management gen surgery consulted for possible I&D, Rogers saw patient in June Vancomyin and Unasyn ortho consulted - may need aspiration if no response to treatment ice, elevation and compression for knee 08/25/23: General surgery seen patient and is recommending topical enzymatic debridement of her two leg wounds. They will continue to follow Ortho also seen and does not feel this to be a septic arthritis. No needle aspiration was needed. Continue with Ice, elevation, and compression of the knee Continue Ampicillin and Vancomycin IV Continue pain control (2) Wound of right lower extremity: Qualifiers: Encounter type: subsequent encounter Qualified Code(s): S81.801D - Unspecified open wound, right lower leg, subsequent encounter Code(s): S81.801A - Unspecified open wound, right lower leg, initial encounter Status: Acute Assessment and Plan: 08/24/23: wound consulted for management gen surgery consulted for possible I&D, Rogers saw patient in June Vancomyin and Unasyn 08/25/23: No I and D needed at this time, general surgery recommending topical enzymatic debridement agent with dressing changes Wound consulted. Continue IV antibiotics. General surgery following. (3) Hypertension: Code(s): I10 - Essential (primary) hypertension Status: Acute Assessment and Plan: 08/24/23: continue home meds 08/25/23: B/P 99/66-103/58 On HCTZ 25 mg daily no change to current treatment plan (4) Obesity (BMI 35.0-39.9 without comorbidity): Code(s): E66.9 - Obesity, unspecified Status: Chronic Assessment and Plan: 08/24/23: Lifestyle and diet modifications 08/25/23: BMI 36.5, 112kg Time Spent With Patient Time with patient: Greater than 35 minutes Subjective Date/time seen: 08/25/23 10:46 Interval history: This is a 57 year old female who presented to the hospital on 08/24/23 with cellulitis of the right lower leg. Work up in the hospital included a knee x-ray that shown mild right knee osteoarthritis. Respiratory swab negative for influenza. Orthopedic surgery was consulted to rule out septic arthritis as the cellulitis extends to the level of the knee. Ortho evaluated patient yesterday and there does not appear to be any septic arthritis and their recommendation is to continue with IV antibiotics. Patient was given 1 dose of Zosyn and then started on Vancomycin and Ampicillin. Blood cultures were obtained. On examination today patient is alert and oriented x3, lying in the bed. Patient denies any fever, chills, nausea, vomiting, diarrhea, abdominal pain, shortness of breath, and chest pain. Labs today were essentially unremarkable. There is notable swelling of the right leg with erythema and warmth noted over the lateral knee. She also has a dressing to the lower extremity. Patient reports some open areas on her distal leg that they have been treating. Patient states that she has had cellulitis in the past but it was always her left leg and not her right. We will continue on IV Ampicillin and Vancomycin. Blood cultures are still pending. Review of Systems Review of Systems: All systems reviewed & are unremarkable except as noted in HPI and below Constitutional: Constitutional: Reports as per HPI and Reports no additional constitutional complaints Eyes: Eyes: Reports as per HPI and Reports no additional eye complaints ENT: Reports system reviewed and no additional complaints, except as documented and Reports as per HPI Cardiovascular: Cardiovascular: Reports as per HPI and Reports no additional cardiovascular complaints Respiratory: Respiratory: Reports as per HPI and Reports no additional respiratory complaints Gastrointestinal: Ga
[2023-08-25 12:00] VITALS: BP 99/66; PULSE 79; RESP 16; TEMP 36.4; O2SAT 100
[2023-08-25] MEDS: CYCLOBENZAPRINE HCL 10 MG TABLET PO (12:18)
--- NOTE | 2023-08-25 15:16 | WPDCN ---
Assessment and Plan Assessment and plan (1) Wound of right lower extremity: Qualifiers: Encounter type: subsequent encounter Qualified Code(s): S81.801D - Unspecified open wound, right lower leg, subsequent encounter Code(s): S81.801A - Unspecified open wound, right lower leg, initial encounter Status: Acute Assessment and Plan: Patient appears to have chronic wounds in the areas of the previous old blood-filled blisters. Presently there is some granulation tissue and some fibrin and slough. No obvious necrotic tissue in the 2 wounds. For now would recommend continued application of topical enzymatic debridement agent and dressing changes. Keep the leg elevated. White blood cell count 8000 she has had no fevers to suggest more systemic infection. Will follow. (2) Cellulitis of right leg: Code(s): L03.115 - Cellulitis of right lower limb Status: Acute Assessment and Plan: Patient appears to have cellulitis of the right lower extremity that extends all the way up to the right knee. She has been seen by orthopedic surgeon does not recommend any operative management or joint aspiration. Continue IV antibiotics for the chronic wounds and right lower extremity cellulitis. HPI Data of Consult Date/Time: August 24, 2023 Requesting Physician: Willie Anders MD Primary Care Provider: Vasile De Jesus, Consult Narrative Reason for consult: Right lower extremity chronic nonhealing wounds Narrative: Tripp Garcia is a 57 year old female who I was asked to see for chronic nonhealing wounds in the right lower extremity. I had previously seen her while she was admitted in the hospital here in [place] for cellulitis of right lower extremity associated blood filled blisters on the right lower extremity. These fluid-filled blisters were not purulent and there is no abscess to drain. She was treated with IV antibiotics and improved and was discharged. Since that time she has gone on to develop chronic wounds in the right lower extremity [place] same spot as the blisters were noted to be. She has also developed severe pain in the right knee was swelling and redness around the knee and has been seen by Dr. Espinoza for a orthopedic consult. He did not feel any operative intervention was needed and commended continue on IV antibiotics. She was seen evaluated by our wound care nurses and there was no necrotic tissue that appeared to need sharp debridement. There was some fibrinous slough around the wound however. I have been asked to see the patient to make recommendations on whether surgical debridement of any nonviable tissue will be needed. Review of Systems Review of Systems: The remainder of the review of systems to include constitutional, HEENT, cardiovascular, respiratory, GI, , integumentary, musculoskeletal, endocrine, immunologic, hematologic, psychiatric, and neurologic are all negative except for which is mentioned above in the HPI. [facility] Past Medical History Medical History Arthritis Asthma Diverticulitis Esophageal perforation Hypertension Neuroendocrine carcinoma Surgical History Surgical History History of colon resection For neuroendocrine carcinoma. History of esophageal surgery Repair of accidental perforation during procedure. History of sleeve gastrectomy Family History Family History Mother Hypertension Father Hypertension Social History Social History Social History: Surrogate medical decision maker: Eladio Garcia (son) or Altagracia Gino (mother). Code status: Full code. Smoking status: Never smoker Alcohol intake: never Substance use: never Substance use type: does not use Lack of Transportation: No
[2023-08-25 15:24] LABS: Vancomycin Trough 11.4 ug/mL (10.0-20.0)
[2023-08-25 16:00] VITALS: BP 96/53; PULSE 93; RESP 18; TEMP 37.2; O2SAT 97
[2023-08-25 20:57] VITALS: BP 109/63; PULSE 92; RESP 18; TEMP 36.1; O2SAT 96
[2023-08-26] MEDS: SODIUM CHLORIDE 0.9% IV 500 ML 30 ML (00:01)
[2023-08-26] MEDS: AMPICILLIN SULB 3 GM/NS 100 ML 3 GM/100 ML VIAL IVPB ×5 (00:02→23:57)
[2023-08-26] MEDS: VANCOMYCIN 1,500 MG/NS 500 ML 1,500 MG/500 ML BAG 250 MG IVPB ×2 (01:09→08:17)
[2023-08-26] MEDS: HYDROcodone/acetaminophen (*CRX) 10-325 MG TABLET 1 TAB PO (01:11)
[2023-08-26 04:56] VITALS: BP 114/72; PULSE 80; RESP 16; TEMP 36.2; O2SAT 99
[2023-08-26] MEDS: HYDROmorphone HCL INJ (*CRX) 1 MG/ML SYR 0.5 MG IV PUSH ×3 (05:16→20:45)
[2023-08-26 07:41] LABS: Alanine Aminotransferase 6 U/L (6-35); Albumin Level 2.8 g/dL (3.5-5.1); Alkaline Phosphatase 85 U/L (38-126); Anion Gap 4 mmol/L (8-16); Aspartate Amino Transferase 13 U/L (14-36); Bilirubin,Total 0.3 mg/dL (0.2-1.3); Blood Urea Nitrogen 6 mg/dL (7-17); Calcium 8.1 mg/dL (8.4-10.2); Carbon Dioxide 30 mmol/L (22-30); Chloride 104 mmol/L (98-107); Estimated CRCL calculation 141 ml/min; Estimated Glomerular Filt Rate > 60; Glucose 103 mg/dL (65-110); Potassium 3.4 mmol/L (3.4-5.0); Sodium 138 mmol/L (137-145)
[2023-08-26 07:51] LABS: Basophils Absolute Auto 0.1 K/mm3 (0.0-0.1); Basophils Percent Auto 0.7 % (0.2-1.2); Eosinophils Absolute Auto 0.1 K/mm3 (0-0.3); Eosinophils Percent Auto 1.8 % (0-4.4); Hematocrit 31.5 % (37.0-47.0); Hemoglobin 9.1 g/dL (12.0-15.0); Immature Granulocyte Absolute 0.02 K/mm3 (0.00-0.031); Immature Granulocyte Percent A 0.3 % (0-0.5); Lymphocytes Absolute Auto 2.54 K/mm3 (0.9-3.2); Lymphocytes Percent Auto 35.7 % (18.3-44.2); Mean Corpuscular HGB Conc 28.9 g/dl (32-36); Mean Corpuscular Hemoglobin 27.1 pg (26-34); Mean Corpuscular Volume 93.8 fl (80-100); Mean Platelet Volume 9.1 fl (7.4-10.4); Monocytes Absolute Auto 0.7 K/mm3 (0.1-0.6); Monocytes Percent Auto 9.6 % (2.6-8.5); Neutrophils Absolute Auto 3.7 K/mm3 (1.3-6.7); Neutrophils Percent Auto 51.9 % (45.5-73.1); Platelet Count Result 393 k/mm3 (150-375); Red Blood Count 3.36 M/mm3 (4.2-5.4); Red Cell Distribution Width 15.4 % (11.5-14.5); White Blood Count 7.1 K/mm3 (4.5-10.0)
[2023-08-26] MEDS: PANTOPRAZOLE 40 MG TABLET PO (08:14)
[2023-08-26] MEDS: hydroCHLOROthiazide 25 MG TABLET PO (08:14)
[2023-08-26] MEDS: MULTIVITAMINS THERAPEUTIC TAB (*BKC) 1 TABLET PO ×2 (08:14→17:22)
[2023-08-26] MEDS: POTASSIUM CHLORIDE 20 MEQ ER TABLET 40 MEQ PO (08:14)
[2023-08-26] MEDS: ENOXAPARIN 40 MG/0.4 ML SYRINGE SUB-Q (08:15)
[2023-08-26] MEDS: FERROUS GLUCONATE 324 MG TABLET PO (08:15)
[2023-08-26] MEDS: CYCLOBENZAPRINE HCL 10 MG TABLET PO (08:26)
--- NOTE | 2023-08-26 08:47 | P.PNIM_ITS ---
Progress Note: A&P Assessment and Plan (1) Cellulitis of right leg: Code(s): L03.115 - Cellulitis of right lower limb Status: Acute Assessment and Plan: 08/24/23: * wound consulted for management * gen surgery consulted for possible I&D, Mccloud saw patient in June * Vancomyin and Unasyn * ortho consulted - may need aspiration if no response to treatment * ice, elevation and compression for knee 08/25/23: * General surgery seen patient and is recommending topical enzymatic debridement of her two leg wounds. They will continue to follow * Ortho also seen and does not feel this to be a septic arthritis. No needle aspiration was needed. * Continue with Ice, elevation, and compression of the knee * Continue Ampicillin and Vancomycin IV * Continue pain control 08/26/23: * vancomycin changed to linezolid, we will continue ampicillin IV for now * continue with ice, elevation, compression of the right knee * we changed pain medication to [place] 1-2 tablets as needed for pain and decreased her interval of the dilaudid to Q 3 hours * reporting 8/10 pain in right knee (2) Wound of right lower extremity: Qualifiers: Encounter type: subsequent encounter Qualified Code(s): S81.801D - Unspecified open wound, right lower leg, subsequent encounter Code(s): S81.801A - Unspecified open wound, right lower leg, initial encounter Status: Acute Assessment and Plan: 08/24/23: * wound consulted for management * gen surgery consulted for possible I&D, Mccloud saw patient in June * Vancomyin and Unasyn 08/25/23: * No I and D needed at this time, general surgery recommending topical enzymatic debridement agent with dressing changes * Wound consulted. * Continue IV antibiotics. * General surgery following. 08/26/23: * Continue antibiotics as noted above * No change to current treatment plan (3) Hypertension: Code(s): I10 - Essential (primary) hypertension Status: Acute Assessment and Plan: 08/24/23: * continue home meds 08/25/23: * B/P 99/66-103/58 * On HCTZ 25 mg daily * no change to current treatment plan 08/26/23: * B/P 96/53-114/72 * No change to current treatment plan (4) Obesity (BMI 35.0-39.9 without comorbidity): Code(s): E66.9 - Obesity, unspecified Status: Chronic Assessment and Plan: 08/24/23: * Lifestyle and diet modifications 08/25/23: * BMI 36.5, 112kg 08/26/23: * no change, of note Time Spent With Patient Time with patient: 25 - 35 minutes Subjective Date/time seen: 08/26/23 08:47 Interval history: 08/25/23: This is a 57 year old female who presented to the hospital on 08/24/23 with cellulitis of the right lower leg. Work up in the hospital included a knee x-ray that shown mild right knee osteoarthritis. Respiratory swab negative for influenza. Orthopedic surgery was consulted to rule out septic arthritis as the cellulitis extends to the level of the knee. Ortho evaluated patient yesterday a nd there does not appear to be any septic arthritis and their recommendation is to continue with IV antibiotics. Patient was given 1 dose of Zosyn and then started on Vancomycin and Ampicillin. Blood cultures were obtained. On examination today patient is alert and oriented x3, lying in the bed. Patient denies any fever, chills, nausea, vomiting, diarrhea, abdominal pain, shortness of breath, and chest pain. Labs today were essentially unremarkable. There is notable swelling of the right leg with erythema and warmth noted over the lateral kne
--- NOTE | 2023-08-26 08:47 | PM.IMPN ---
Progress Note: A&P Assessment and Plan (1) Cellulitis of right leg: Code(s): L03.115 - Cellulitis of right lower limb Status: Acute Assessment and Plan: 08/24/23: wound consulted for management gen surgery consulted for possible I&D, Rogers saw patient in June Vancomyin and Unasyn ortho consulted - may need aspiration if no response to treatment ice, elevation and compression for knee 08/25/23: General surgery seen patient and is recommending topical enzymatic debridement of her two leg wounds. They will continue to follow Ortho also seen and does not feel this to be a septic arthritis. No needle aspiration was needed. Continue with Ice, elevation, and compression of the knee Continue Ampicillin and Vancomycin IV Continue pain control 08/26/23: vancomycin changed to linezolid, we will continue ampicillin IV for now continue with ice, elevation, compression of the right knee we changed pain medication to [place] 1-2 tablets as needed for pain and decreased her interval of the dilaudid to Q 3 hours reporting 8/10 pain in right knee (2) Wound of right lower extremity: Qualifiers: Encounter type: subsequent encounter Qualified Code(s): S81.801D - Unspecified open wound, right lower leg, subsequent encounter Code(s): S81.801A - Unspecified open wound, right lower leg, initial encounter Status: Acute Assessment and Plan: 08/24/23: wound consulted for management gen surgery consulted for possible I&D, Rogers saw patient in June Vancomyin and Unasyn 08/25/23: No I and D needed at this time, general surgery recommending topical enzymatic debridement agent with dressing changes Wound consulted. Continue IV antibiotics. General surgery following. 08/26/23: Continue antibiotics as noted above No change to current treatment plan (3) Hypertension: Code(s): I10 - Essential (primary) hypertension Status: Acute Assessment and Plan: 08/24/23: continue home meds 08/25/23: B/P 99/66-103/58 On HCTZ 25 mg daily no change to current treatment plan 08/26/23: B/P 96/53-114/72 No change to current treatment plan (4) Obesity (BMI 35.0-39.9 without comorbidity): Code(s): E66.9 - Obesity, unspecified Status: Chronic Assessment and Plan: 08/24/23: Lifestyle and diet modifications 08/25/23: BMI 36.5, 112kg 08/26/23: no change, of note Time Spent With Patient Time with patient: 25 - 35 minutes Subjective Date/time seen: 08/26/23 08:47 Interval history: 08/25/23: This is a 57 year old female who presented to the hospital on 08/24/23 with cellulitis of the right lower leg. Work up in the hospital included a knee x-ray that shown mild right knee osteoarthritis. Respiratory swab negative for influenza. Orthopedic surgery was consulted to rule out septic arthritis as the cellulitis extends to the level of the knee. Ortho evaluated patient yesterday and there does not appear to be any septic arthritis and their recommendation is to continue with IV antibiotics. Patient was given 1 dose of Zosyn and then started on Vancomycin and Ampicillin. Blood cultures were obtained. On examination today patient is alert and oriented x3, lying in the bed. Patient denies any fever, chills, nausea, vomiting, diarrhea, abdominal pain, shortness of breath, and chest pain. Labs today were essentially unremarkable. There is notable swelling of the right leg with erythema and warmth noted over the lateral knee. She also has a dressing to the lower extremity. Patient reports some open areas on her distal leg that they have been treating. Patient states that she has had cellulitis in the past but it was always her left leg and not her right. We will continue on IV Ampicillin and Vancomycin. 08/26/23: On examination today patient is and oriented x3, lying in the bed. She reports that her pain is 8/10 in her right knee. She also reports
--- NOTE | 2023-08-26 12:32 | PM.PNORT ---
Progress Note: A&P Assessment and Plan (1) Cellulitis of right leg: Code(s): L03.115 - Cellulitis of right lower limb Status: Acute Assessment and Plan: Improvement in right leg erythema and swelling. Patient still on IV antibiotics. Also being followed by General surgery for lower extremity wounds with enzymatic debridement. Patient is refusing a full knee exam today. Tender to the touch. Will not allow for palpation of possible effusion. Discussed possible aspiration of the right knee under radiology to ensure no infection but the patient adamantly declines. Recommend PT/OT. WBAT. OOB to chair. Ice Knee. Antibiotics per medicine team. CRP trending down. Pain control. Subjective Subjective Date/Time Seen: 08/26/23 12:32 Principal diagnosis: Right leg cellulitis Interval history: Patient resting comfortably on exam. She complains of right knee tenderness with palpation. Review of Systems Constitutional: Constitutional: Denies fever(s) Eyes: Eyes: Denies blurry vision ENT: Reports Normal hearing present Cardiovascular: Cardiovascular: Denies chest pain and Denies dyspnea Respiratory: Respiratory: Denies dyspnea and Denies wheezing Gastrointestinal: Gastrointestinal: Denies abdominal pain Genitourinary: Genitourinary: Denies urinary urgency Musculoskeletal: Musculoskeletal: Reports as per HPI and Denies numbness Integumentary/Breasts: Skin/Breast: Denies changing lesions and Denies sores Neurologic: Reports Normal hearing present, Denies behavioral changes, Denies confusion, Denies numbness and Denies convulsions Psychiatric: Psychiatric: Denies behavioral changes, Denies confusion and Denies hallucinations Endocrine: Endocrine: Denies heat intolerance Hematologic/Lymphatic: Hematologic/Lymphatic: Denies easy bleeding Allergic/Immunologic: Allergic/Immunologic: Denies wheezing Exam Const: General: healthy appearing; No in distress or confusion Orientation/consciousness: oriented to person, oriented to place, oriented to time and No confusion HENMT: Head: normal to inspection, normocephalic and atraumatic Eyes: Conjunctivae: conjunctivae normal Sclera: sclerae normal Neck: Neck: supple and nontender Resp: Effort & Inspection: normal respiratory effort and no audible wheezes Cardio: Rate: regular rate Rhythm: regular rhythm Skin: General skin exam: no rashes or lesions noted Neuro: General: oriented to person, oriented to place, oriented to time and No confusion Extrem: Right upper extremity: normal to inspection Left upper extremity: normal to inspection Right lower extremity: hip/thigh Details: normal ROM; no tenderness, knee Details: tenderness (anterior and medial joint line ) Location: of the medial joint line (moderate ) and of the pre-patellar area (moderate ), swelling (peripatellar and medial joint ), abnormal ROM (active range of motion -10 degrees extension, 110 degrees flexion) Details: pain with active ROM during Details: in extension and in flexion, knee ligament exam normal Details: anterior drawer test normal, posterior drawer test normal, valgus stress test normal and Zena?s test normal, knee ligament exam abnormal Details: varus stress test normal (painful medial ) and Aggie's Test Details: positive medially and foot Details: normal capillary refill, toes with normal ROM, vascular exam Details: dorsalis pedis pulse present and motor-sensory exam Details: light-touch normal; no tenderness; no edema Left lower extremity: normal to inspection, normal capillary refill and knee Details: normal ROM (Active extension 5, flexion 130) and knee ligament exam normal; no tenderness Other: Erythema over the anterior aspect of the right knee. Tender to palpation. Refusing full exam to evaluate active and passive range of motion. Moves ankles and toes. Good sensation to the touch. Good capillary refill. Unable to fully evaluate for knee joint effusion as patient i
--- NOTE | 2023-08-26 13:59 | PM.PNGS ---
Progress Note: A&P Assessment and Plan (1) Wound of right lower extremity: Qualifiers: Encounter type: subsequent encounter Qualified Code(s): S81.801D - Unspecified open wound, right lower leg, subsequent encounter Code(s): S81.801A - Unspecified open wound, right lower leg, initial encounter Status: Acute Assessment and Plan: Right lower extremity wounds x2 with some superficial slough of fibrinous tissue. No deep necrotic tissue. Cellulitis of the right leg is improving although clinically she is still having quite a bit of pain in the right knee. She is being seen by Orthopedics and issues related to the pain in her right knee will be addressed by Orthopedics. For now continue IV antibiotics the right lower extremity cellulitis. Continue wound care. (2) Cellulitis of right leg: Code(s): L03.115 - Cellulitis of right lower limb Status: Acute Assessment and Plan: As above. Subjective Subjective Date/Time Seen: 08/26/23 13:59 Interval history: Patient states that she has continued to have in the right knee. She states she was able to walk with therapy and walker to the bathroom and back yesterday but is unable to do that today due to the pain in her right knee. She is getting daily dressing changes to the lower extremity wound and application of topical agents. White blood count is normal. Exam Extrem: Other: Much less redness around the right knee some decrease in the swelling. Palpation of the knee reveals tenderness and she has pain with active and passive flexion extension of the knee. The right lower extremity wounds are stable with some serous drainage but deep necrotic tissue. Objective Data Vital Signs Vital Signs: Vital Signs - 24 hr 08/25/23 15:04 08/25/23 15:17 08/25/23 16:00 Temperature 37.2 C Pulse Rate 93 Respiratory Rate 18 Blood Pressure 96/53 L Pulse Oximetry 97 Oxygen Delivery Room Air Room Air 08/25/23 20:57 08/25/23 20:00 08/26/23 04:56 Temperature 36.1 C L 36.2 C L Pulse Rate 92 80 Respiratory Rate 18 16 Blood Pressure 109/63 114/72 Pulse Oximetry 96 99 Oxygen Delivery Room Air 08/26/23 08:00 Temperature Pulse Rate Respiratory Rate Blood Pressure Pulse Oximetry Oxygen Delivery Room Air Intake/Output Intake/Output: Intake & Output 12/1108/24/23 08/25/23 08/26/23 23:59 23:59 23:59 23:59 Intake Total 1920 2964 1420 Balance 1920 2964 1420 Meds/Results Medications: Active Medications Generic Name Dose Route Start Last Admin Trade Name Freq PRN Reason Stop Dose Admin Hydrocodone Bitart/Acetaminophen 1 - 2 tab 08/26/23 12:13 Hydrocodone/Acetaminophen (*Crx) 10-325 Mg Tablet PO Q4H PRN Pain Rated 4-10 Cyclobenzaprine HCl 10 mg 08/23/23 23:16 08/26/23 08:26 Cyclobenzaprine Hcl 10 Mg Tablet PO 10 mg DAILY PRN Administration Muscle Spasm Enoxaparin Sodium 40 mg 08/26/23 09:00 08/26/23 08:15 Enoxaparin 40 Mg/0.4 Ml Syringe SUB-Q 40 mg DAILY [facility] Administration Ferrous Gluconate 324 mg 08/24/23 09:00 08/26/23 08:15 Ferrous Gluconate 324 Mg Tablet PO 324 mg DAILY [facility] Administration Hydrochlorothiazide 25 mg 08/24/23 09:00 08/26/23 08:14 Hydrochlorothiazide 25 Mg Tablet PO 25 mg DAILY [facility] Administration Hydromorphone HCl 0.5 mg 08/26/23 12:13 Hydromorphone Hcl Inj (*Crx) 1 Mg/Ml Syr IV PUSH Q3H PRN Pain Rated 7-10 Ampicillin Sodium/Sulbactam Sodium 3 gm in 100 mls @ 200 mls/hr 08/24/23 18:00 08/26/23 12:05 Unasyn 3 Gm/Ns 100 Ml IVPB Infused Q6H [facility] Infusion Linezolid 600 mg 08/26/23 12:00 Linezolid 600 Mg Tablet PO 09/01/23 21:01 Q12HR [facility] Multivitamins Therapeutic 1 tablet 08/24/23 09:00 08/26/23 08:14 Multivitamins Therapeutic Tab (*Bkc) PO 1 tablet BID [facility] Administration Pantoprazole Sodium 40 mg 08/24/23 09:00 08/26/23 08:14 Pantoprazole 40
[2023-08-26 14:00] VITALS: BP 134/68; PULSE 92; RESP 18; TEMP 35.7; O2SAT 97
[2023-08-26] MEDS: HYDROcodone/acetaminophen (*CRX) 10-325 MG TABLET PO ×2 (14:21→23:57)
[2023-08-26] MEDS: LINEZOLID 600 MG TABLET PO ×2 (14:23→20:44)
[2023-08-26 14:31] LABS: CRP 8.7 mg/dL (<1.0)
[2023-08-26 22:00] VITALS: BP 120/79; PULSE 90; RESP 16; TEMP 35.7; O2SAT 100
[2023-08-27] MEDS: AMPICILLIN SULB 3 GM/NS 100 ML 3 GM/100 ML VIAL IVPB ×3 (05:25→17:33)
[2023-08-27] MEDS: HYDROmorphone HCL INJ (*CRX) 1 MG/ML SYR 0.5 MG IV PUSH ×2 (05:26→09:31)
[2023-08-27 06:00] VITALS: BP 101/64; PULSE 82; RESP 16; TEMP 36.3; O2SAT 98
[2023-08-27 07:03] LABS: Basophils Percent Auto 0.6 % (0.2-1.2); Eosinophils Absolute Auto 0.1 K/mm3 (0-0.3); Eosinophils Percent Auto 1.9 % (0-4.4); Hematocrit 30.8 % (37.0-47.0); Hemoglobin 9.3 g/dL (12.0-15.0); Immature Granulocyte Absolute 0.02 K/mm3 (0.00-0.031); Immature Granulocyte Percent A 0.3 % (0-0.5); Lymphocytes Absolute Auto 2.26 K/mm3 (0.9-3.2); Lymphocytes Percent Auto 33.7 % (18.3-44.2); Mean Corpuscular HGB Conc 30.2 g/dl (32-36); Mean Corpuscular Hemoglobin 27.5 pg (26-34); Mean Corpuscular Volume 91.1 fl (80-100); Mean Platelet Volume 8.9 fl (7.4-10.4); Monocytes Absolute Auto 0.6 K/mm3 (0.1-0.6); Monocytes Percent Auto 8.8 % (2.6-8.5); Neutrophils Absolute Auto 3.7 K/mm3 (1.3-6.7); Neutrophils Percent Auto 54.7 % (45.5-73.1); Platelet Count Result 404 k/mm3 (150-375); Red Blood Count 3.38 M/mm3 (4.2-5.4); Red Cell Distribution Width 15.3 % (11.5-14.5); White Blood Count 6.7 K/mm3 (4.5-10.0)
[2023-08-27 07:19] LABS: Alanine Aminotransferase 7 U/L (6-35); Albumin Level 2.8 g/dL (3.5-5.1); Alkaline Phosphatase 85 U/L (38-126); Anion Gap 1 mmol/L (8-16); Aspartate Amino Transferase 12 U/L (14-36); Bilirubin,Total 0.3 mg/dL (0.2-1.3); Blood Urea Nitrogen 7 mg/dL (7-17); CRP 8.4 mg/dL (<1.0); Calcium 8.3 mg/dL (8.4-10.2); Carbon Dioxide 32 mmol/L (22-30); Chloride 105 mmol/L (98-107); Estimated CRCL calculation 141 ml/min; Estimated Glomerular Filt Rate > 60; Glucose 97 mg/dL (65-110); Potassium 3.6 mmol/L (3.4-5.0); Sodium 138 mmol/L (137-145)
--- NOTE | 2023-08-27 07:53 | P.PNIM_ITS ---
Progress Note: A&P Assessment and Plan (1) Cellulitis of right leg: Code(s): L03.115 - Cellulitis of right lower limb Status: Acute Assessment and Plan: 08/24/23: * wound consulted for management * gen surgery consulted for possible I&D, Rogers saw patient in June * Vancomyin and Unasyn * ortho consulted - may need aspiration if no response to treatment * ice, elevation and compression for knee 08/25/23: * General surgery seen patient and is recommending topical enzymatic debridement of her two leg wounds. They will continue to follow * Ortho also seen and does not feel this to be a septic arthritis. No needle aspiration was needed. * Continue with Ice, elevation, and compression of the knee * Continue Ampicillin and Vancomycin IV * Continue pain control 08/26/23: * vancomycin changed to linezolid, we will continue ampicillin IV for now * continue with ice, elevation, compression of the right knee * we changed pain medication to [place] 1-2 tablets as needed for pain and decreased her interval of the dilaudid to Q 3 hours * reporting 8/10 pain in right knee 08/27/23: * Continue antibiotics * Continue weight-bearing as tolerated, ice, elevation, and compression of knee * Continue with pain management with [place] * Continue with dressing changes wound care to right lower extremity * Still reporting 8/10 mainly in her right knee, ortho is following. * We will go ahead and get an MRI of her right knee today (2) Wound of right lower extremity: Qualifiers: Encounter type: subsequent encounter Qualified Code(s): S81.801D - Unspecified open wound, right lower leg, subsequent encounter Code(s): S81.801A - Unspecified open wound, right lower leg, initial encounter Status: Acute Assessment and Plan: 08/24/23: * wound consulted for management * gen surgery consulted for possible I&D, Rogers saw patient in June * Vancomyin and Unasyn 08/25/23: * No I and D needed at this time, general surgery recommending topical enzymatic debridement agent with dressing changes * Wound consulted. * Continue IV antibiotics. * General surgery following. 08/26/23: * Continue antibiotics as noted above * No change to current treatment plan 08/27/23: * Continue with dressing changes and wound care * Continue antibiotics as noted above * General surgery following (3) Hypertension: Code(s): I10 - Essential (primary) hypertension Status: Acute Assessment and Plan: 08/24/23: * continue home meds 08/25/23: * B/P 99/66-103/58 * On HCTZ 25 mg daily * no change to current treatment plan 08/26/23: * B/P 96/53-114/72 * No change to current treatment plan 08/27/23: * Blood pressure remains stable * No change to current treatment plan (4) Obesity (BMI 35.0-39.9 without comorbidity): Code(s): E66.9 - Obesity, unspecified Status: Chronic Assessment and Plan: 08/24/23: * Lifestyle and diet modifications 08/25/23: * BMI 36.5, 112kg 08/26/23: * no change, of note Time Spent With Patient Time with patient: 25 - 35 minutes Subjective Date/time seen: 08/27/23 07:53 Interval history: 08/25/23: This is a 57 year old female who presented to the hospital on 08/24/23 with cellulitis of the right lower leg. Work up in the hospital included a knee x-ray that shown mild right knee osteoarthritis. Respiratory swab negative for influenza. Orthopedic surgery was consulted to rule out septic arthritis as the cellulitis extends to t
--- NOTE | 2023-08-27 07:53 | PM.IMPN ---
Progress Note: A&P Assessment and Plan (1) Cellulitis of right leg: Code(s): L03.115 - Cellulitis of right lower limb Status: Acute Assessment and Plan: 08/24/23: wound consulted for management gen surgery consulted for possible I&D, Rogers saw patient in June Vancomyin and Unasyn ortho consulted - may need aspiration if no response to treatment ice, elevation and compression for knee 08/25/23: General surgery seen patient and is recommending topical enzymatic debridement of her two leg wounds. They will continue to follow Ortho also seen and does not feel this to be a septic arthritis. No needle aspiration was needed. Continue with Ice, elevation, and compression of the knee Continue Ampicillin and Vancomycin IV Continue pain control 08/26/23: vancomycin changed to linezolid, we will continue ampicillin IV for now continue with ice, elevation, compression of the right knee we changed pain medication to [place] 1-2 tablets as needed for pain and decreased her interval of the dilaudid to Q 3 hours reporting 8/10 pain in right knee 08/27/23: Continue antibiotics Continue weight-bearing as tolerated, ice, elevation, and compression of knee Continue with pain management with [place] Continue with dressing changes wound care to right lower extremity Still reporting 8/10 mainly in her right knee, ortho is following. We will go ahead and get an MRI of her right knee today (2) Wound of right lower extremity: Qualifiers: Encounter type: subsequent encounter Qualified Code(s): S81.801D - Unspecified open wound, right lower leg, subsequent encounter Code(s): S81.801A - Unspecified open wound, right lower leg, initial encounter Status: Acute Assessment and Plan: 08/24/23: wound consulted for management gen surgery consulted for possible I&D, Rogers saw patient in June Vancomyin and Unasyn 08/25/23: No I and D needed at this time, general surgery recommending topical enzymatic debridement agent with dressing changes Wound consulted. Continue IV antibiotics. General surgery following. 08/26/23: Continue antibiotics as noted above No change to current treatment plan 08/27/23: Continue with dressing changes and wound care Continue antibiotics as noted above General surgery following (3) Hypertension: Code(s): I10 - Essential (primary) hypertension Status: Acute Assessment and Plan: 08/24/23: continue home meds 08/25/23: B/P 99/66-103/58 On HCTZ 25 mg daily no change to current treatment plan 08/26/23: B/P 96/53-114/72 No change to current treatment plan 08/27/23: Blood pressure remains stable No change to current treatment plan (4) Obesity (BMI 35.0-39.9 without comorbidity): Code(s): E66.9 - Obesity, unspecified Status: Chronic Assessment and Plan: 08/24/23: Lifestyle and diet modifications 08/25/23: BMI 36.5, 112kg 08/26/23: no change, of note Time Spent With Patient Time with patient: 25 - 35 minutes Subjective Date/time seen: 08/27/23 07:53 Interval history: 08/25/23: This is a 57 year old female who presented to the hospital on 08/24/23 with cellulitis of the right lower leg. Work up in the hospital included a knee x-ray that shown mild right knee osteoarthritis. Respiratory swab negative for influenza. Orthopedic surgery was consulted to rule out septic arthritis as the cellulitis extends to the level of the knee. Ortho evaluated patient yesterday and there does not appear to be any septic arthritis and their recommendation is to continue with IV antibiotics. Patient was given 1 dose of Zosyn and then started on Vancomycin and Ampicillin. Blood cultures were obtained. On examination today patient is alert and oriented x3, lying in the bed. Patient denies any fever, chills, nausea, vomiting, diarrhea, abdominal pain, shortness of breath, and chest pain. Labs today were
[2023-08-27] MEDS: LINEZOLID 600 MG TABLET PO ×2 (09:23→19:53)
[2023-08-27] MEDS: hydroCHLOROthiazide 25 MG TABLET PO (09:23)
[2023-08-27] MEDS: POTASSIUM CHLORIDE 20 MEQ ER TABLET 40 MEQ PO (09:23)
[2023-08-27] MEDS: PANTOPRAZOLE 40 MG TABLET PO (09:23)
[2023-08-27] MEDS: ENOXAPARIN 40 MG/0.4 ML SYRINGE SUB-Q (09:23)
[2023-08-27] MEDS: FERROUS GLUCONATE 324 MG TABLET PO (09:24)
[2023-08-27] MEDS: MULTIVITAMINS THERAPEUTIC TAB (*BKC) 1 TABLET PO ×2 (09:24→16:42)
[2023-08-27] MEDS: CYCLOBENZAPRINE HCL 10 MG TABLET PO (09:25)
--- NOTE | 2023-08-27 09:45 | PM.PNORT ---
Progress Note: A&P Assessment and Plan (1) Cellulitis of right leg: Code(s): L03.115 - Cellulitis of right lower limb Status: Acute Assessment and Plan: Improvement in right leg erythema and swelling. Patient still on IV antibiotics. Also being followed by General surgery for lower extremity wounds with enzymatic debridement. Knee exam tender to the touch over erythema area. medial knee joint nontender. Able to move knee better. Progressing with therapy. Recommend PT/OT. WBAT. OOB to chair. Ice Knee. Antibiotics per medicine team. WBC/CRP trending down. Pain control. Subjective Subjective Date/Time Seen: 08/27/23 09:45 Principal diagnosis: Right leg cellulitis Interval history: patient seen and examined. Making progress with physical therapy. Still pain at the area of erythema over the anterolateral lower leg. Able to move knee. Exam HENMT: Head: normal to inspection, normocephalic and atraumatic Neuro: General: oriented to person, oriented to place, oriented to time and No confusion Extrem: Right upper extremity: normal to inspection Left upper extremity: normal to inspection Right lower extremity: hip/thigh Details: normal ROM; no tenderness, knee Details: tenderness (anterior and medial joint line ) Location: of the medial joint line (moderate ) and of the pre-patellar area (moderate ), swelling (peripatellar and medial joint ), abnormal ROM (active range of motion -10 degrees extension, 110 degrees flexion) Details: pain with active ROM during Details: in extension and in flexion, knee ligament exam normal Details: anterior drawer test normal, posterior drawer test normal, valgus stress test normal and Zena?s test normal, knee ligament exam abnormal Details: varus stress test normal (painful medial ) and Aggie's Test Details: positive medially and foot Details: normal capillary refill, toes with normal ROM, vascular exam Details: dorsalis pedis pulse present and motor-sensory exam Details: light-touch normal; no tenderness; no edema Left lower extremity: normal to inspection, normal capillary refill and knee Details: normal ROM (Active extension 5, flexion 130) and knee ligament exam normal; no tenderness Other: Erythema over the lateral aspect of the right knee. Tender to palpation. No warmth. Not able to palpate effusion. Able to flex and extend the knee. Moves ankle and toes. Good sensation to touch. Good capillary refill. Psych: Affect: normal affect Objective Data Vital Signs Vital Signs: Vital Signs - 24 hr 08/26/23 14:00 08/26/23 20:00 08/26/23 22:00 Temperature 96.3 F L 96.2 F L Pulse Rate 92 90 Respiratory Rate 18 16 Blood Pressure 134/68 120/79 Pulse Oximetry 97 100 Oxygen Delivery Room Air 08/27/23 06:00 Temperature 97.3 F L Pulse Rate 82 Respiratory Rate 16 Blood Pressure 101/64 Pulse Oximetry 98 Oxygen Delivery Intake/Output Intake/Output: Intake & Output 08/24/23 08/25/23 08/26/23 08/27/23 23:59 23:59 23:59 23:59 Intake Total 1920 2964 2500 700 Balance 1920 2964 2500 700 Meds/Results Medications: Active Medications Generic Name Dose Route Start Last Admin Trade Name Freq PRN Reason Stop Dose Admin Hydrocodone Bitart/Acetaminophen 1 - 2 tab 08/26/23 12:13 08/26/23 23:57 Hydrocodone/Acetaminophen (*Crx) 10-325 Mg Tablet PO 2 tab Q4H PRN Administration Pain Rated 4-10 Collagenase 1 applic 08/27/23 09:00 Collagenase Oint 30 Gm Tube TOPICAL QAM [facility] Cyclobenzaprine HCl 10 mg 08/23/23 23:16 08/27/23 09:25 Cyclobenzaprine Hcl 10 Mg Tablet PO 10 mg DAILY PRN Administration Muscle Spasm Enoxaparin Sodium 40 mg 08/26/23 09:00 08/27/23 09:23 Enoxaparin 40 Mg/0.4 Ml Syringe SUB-Q 40 mg DAILY [facility] Administration Ferrous Gluconate 324 mg 08/24/23 09:00 08/27/23 09:24 Ferrous Gluconate 324 Mg Tablet PO 324 mg DAILY [facility] Administration Hydrochlorothiazide 25 mg 1
--- NOTE | 2023-08-27 09:47 | PM.PNORT ---
Progress Note: A&P Assessment and Plan (1) Cellulitis of right leg: Code(s): L03.115 - Cellulitis of right lower limb Status: Acute Assessment and Plan: Improvement in right leg erythema and swelling. Patient still on IV antibiotics. Also being followed by General surgery for lower extremity wounds with enzymatic debridement. Knee exam tender to the touch over erythema area. medial knee joint nontender. Able to move knee better. Progressing with therapy. Recommend PT/OT. WBAT. OOB to chair. Ice Knee. Antibiotics per medicine team. WBC/CRP trending down. Pain control. Subjective Subjective Date/Time Seen: 08/27/23 09:47 Principal diagnosis: Right leg cellulitis Interval history: Patient seen and examined. Making progress with physical therapy. Still pain at the area of erythema over the anterolateral lower leg. Able to move knee. Ambulating in the room to the bathroom. Review of Systems Constitutional: Constitutional: Denies fever(s) Eyes: Eyes: Denies blurry vision ENT: Reports Normal hearing present Cardiovascular: Cardiovascular: Denies chest pain and Denies dyspnea Respiratory: Respiratory: Denies dyspnea and Denies wheezing Gastrointestinal: Gastrointestinal: Denies abdominal pain Genitourinary: Genitourinary: Denies urinary urgency Musculoskeletal: Musculoskeletal: Reports as per HPI and Denies numbness Integumentary/Breasts: Skin/Breast: Denies changing lesions and Denies sores Neurologic: Reports Normal hearing present, Denies behavioral changes, Denies confusion, Denies numbness and Denies convulsions Psychiatric: Psychiatric: Denies behavioral changes, Denies confusion and Denies hallucinations Endocrine: Endocrine: Denies heat intolerance Hematologic/Lymphatic: Hematologic/Lymphatic: Denies easy bleeding Allergic/Immunologic: Allergic/Immunologic: Denies wheezing Objective Data Vital Signs Vital Signs: Vital Signs - 24 hr 08/26/23 14:00 08/26/23 20:00 08/26/23 22:00 Temperature 35.7 C L 35.7 C L Pulse Rate 92 90 Respiratory Rate 18 16 Blood Pressure 134/68 120/79 Pulse Oximetry 97 100 Oxygen Delivery Room Air 08/27/23 06:00 Temperature 36.3 C L Pulse Rate 82 Respiratory Rate 16 Blood Pressure 101/64 Pulse Oximetry 98 Oxygen Delivery Intake/Output Intake/Output: Intake & Output 08/24/23 08/25/23 08/26/23 08/27/23 23:59 23:59 23:59 23:59 Intake Total 1920 2964 2500 700 Balance 1920 2964 2500 700 Meds/Results Medications: Active Medications Generic Name Dose Route Start Last Admin Trade Name Freq PRN Reason Stop Dose Admin Hydrocodone Bitart/Acetaminophen 1 - 2 tab 08/26/23 12:13 08/26/23 23:57 Hydrocodone/Acetaminophen (*Crx) 10-325 Mg Tablet PO 2 tab Q4H PRN Administration Pain Rated 4-10 Collagenase 1 applic 08/27/23 09:00 Collagenase Oint 30 Gm Tube TOPICAL QAM [facility] Cyclobenzaprine HCl 10 mg 08/23/23 23:16 08/27/23 09:25 Cyclobenzaprine Hcl 10 Mg Tablet PO 10 mg DAILY PRN Administration Muscle Spasm Enoxaparin Sodium 40 mg 08/26/23 09:00 08/27/23 09:23 Enoxaparin 40 Mg/0.4 Ml Syringe SUB-Q 40 mg DAILY [facility] Administration Ferrous Gluconate 324 mg 08/24/23 09:00 08/27/23 09:24 Ferrous Gluconate 324 Mg Tablet PO 324 mg DAILY [facility] Administration Hydrochlorothiazide 25 mg 08/24/23 09:00 08/27/23 09:23 Hydrochlorothiazide 25 Mg Tablet PO 25 mg DAILY [facility] Administration Hydromorphone HCl 0.5 mg 08/26/23 12:13 08/27/23 09:31 Hydromorphone Hcl Inj (*Crx) 1 Mg/Ml Syr IV PUSH 0.5 mg Q3H PRN Administration Pain Rated 7-10 Ampicillin Sodium/Sulbactam Sodium 3 gm in 100 mls @ 200 mls/hr 08/24/23 18:00 08/27/23 05:55 Unasyn 3 Gm/Ns 100 Ml IVPB Infused Q6H [facility] Infusion Linezolid 600 mg 08/26/23 12:00 08/27/23 09:23 Linezolid 600 Mg Tablet PO 09/01/23 21:01 600 mg Q12HR [facility] Administration Multivitamins Therapeutic
[2023-08-27] MEDS: COLLAGENASE OINT 30 GM TUBE 1 APPLIC TOPICAL (10:15)
--- NOTE | 2023-08-27 10:40 | PM.PNGS ---
Progress Note: A&P Assessment and Plan (1) Wound of right lower extremity: Qualifiers: Encounter type: subsequent encounter Qualified Code(s): S81.801D - Unspecified open wound, right lower leg, subsequent encounter Code(s): S81.801A - Unspecified open wound, right lower leg, initial encounter Status: Acute Assessment and Plan: Will add Santyl or topical enzymatic debridement in addition to the silver gel for antimicrobial coverage. Cover the wound with dry dressings and change daily. No need for surgical debridement of deeper tissues at this time. Continue current antibiotic regimen. Management of cellulitis and right knee pain as per Orthopedic surgery. Subjective Subjective Date/Time Seen: 08/27/23 10:40 Interval history: Patient remains stable in terms of the right lower extremity open wounds. Her main complaint is pain in her right knee which is being followed by Orthopedic surgery. White blood cell count remains normal. Exam Const: General: comfortable and no acute distress Extrem: Other: Right lower extremity wounds measure 5.4x4.5x0.3cm and 1.5x5.0x1.5cm. Both wounds have superficial fibrinous slough but viable underlying tissue. No large areas of necrotic tissue. No purulent drainage. Drainage is mostly is fibrinous exudate. Redness around the wounds as well as the swelling is decreasing. Objective Data Vital Signs Vital Signs: Vital Signs - 24 hr 08/26/23 14:00 08/26/23 20:00 08/26/23 22:00 Temperature 35.7 C L 35.7 C L Pulse Rate 92 90 Respiratory Rate 18 16 Blood Pressure 134/68 120/79 Pulse Oximetry 97 100 Oxygen Delivery Room Air 08/27/23 06:00 08/27/23 08:00 Temperature 36.3 C L Pulse Rate 82 Respiratory Rate 16 Blood Pressure 101/64 Pulse Oximetry 98 Oxygen Delivery Room Air Intake/Output Intake/Output: Intake & Output 08/24/23 08/25/23 08/26/23 08/27/23 23:59 23:59 23:59 23:59 Intake Total 1920 2964 2500 940 Balance 1920 2964 2500 940 Meds/Results Medications: Active Medications Generic Name Dose Route Start Last Admin Trade Name Freq PRN Reason Stop Dose Admin Hydrocodone Bitart/Acetaminophen 1 - 2 tab 08/26/23 12:13 08/26/23 23:57 Hydrocodone/Acetaminophen (*Crx) 10-325 Mg Tablet PO 2 tab Q4H PRN Administration Pain Rated 4-10 Collagenase 1 applic 08/27/23 09:00 Collagenase Oint 30 Gm Tube TOPICAL QAM [facility] Cyclobenzaprine HCl 10 mg 08/23/23 23:16 08/27/23 09:25 Cyclobenzaprine Hcl 10 Mg Tablet PO 10 mg DAILY PRN Administration Muscle Spasm Enoxaparin Sodium 40 mg 08/26/23 09:00 08/27/23 09:23 Enoxaparin 40 Mg/0.4 Ml Syringe SUB-Q 40 mg DAILY [facility] Administration Ferrous Gluconate 324 mg 08/24/23 09:00 08/27/23 09:24 Ferrous Gluconate 324 Mg Tablet PO 324 mg DAILY [facility] Administration Hydrochlorothiazide 25 mg 08/24/23 09:00 08/27/23 09:23 Hydrochlorothiazide 25 Mg Tablet PO 25 mg DAILY [facility] Administration Hydromorphone HCl 0.5 mg 08/26/23 12:13 08/27/23 09:31 Hydromorphone Hcl Inj (*Crx) 1 Mg/Ml Syr IV PUSH 0.5 mg Q3H PRN Administration Pain Rated 7-10 Ampicillin Sodium/Sulbactam Sodium 3 gm in 100 mls @ 200 mls/hr 08/24/23 18:00 08/27/23 05:55 Unasyn 3 Gm/Ns 100 Ml IVPB Infused Q6H [facility] Infusion Linezolid 600 mg 08/26/23 12:00 08/27/23 09:23 Linezolid 600 Mg Tablet PO 09/01/23 21:01 600 mg Q12HR [facility] Administration Multivitamins Therapeutic 1 tablet 08/24/23 09:00 08/27/23 09:24 Multivitamins Therapeutic Tab (*Bkc) PO 1 tablet BID [facility] Administration Pantoprazole Sodium 40 mg 08/24/23 09:00 08/27/23 09:23 Pantoprazole 40 Mg Tablet PO 40 mg DAILY [facility] Administration Potassium Chloride 40 meq 08/24/23 09:00 08/27/23 09:23 Potassium Chloride 20 Meq Er Tablet PO 40 meq DAILY [facility] Administration Radiology Results: ITS Impressions Knee X-Ray 08/23/23 17:15
--- NOTE | 2023-08-27 11:15 | PCOTNOTE ---
Attempted to see Patient for OT treatment session. Patient stated she is in horrible Right knee pain at this time. Patient stated she does her own care and does not need OT services. Patient states she does not want services at this time. OTR will be notified and request discharge orders from the MD.
--- NOTE | 2023-08-27 11:57 | PCPTNOTE ---
Patient declined PT stating she is able to get up and walk to the bathroom when needed and is only limited in mobility due to pain in R LE. Patient states she does not need PT or OT services to continue. Explained to patient that the ordering provider will be contacted to discontinue therapy services.
[2023-08-27] MEDS: HYDROcodone/acetaminophen (*CRX) 10-325 MG TABLET PO ×3 (12:43→19:51)
--- NOTE | 2023-08-27 14:25 | PC.NURSE ---
To MRI per wheelchair.
--- NOTE | 2023-08-27 15:30 | PC.NURSE ---
Return from MRI per wheelchair.
[2023-08-27 17:02] VITALS: BP 107/63; PULSE 73; RESP 18; TEMP 36.6; O2SAT 100
[2023-08-27 22:00] VITALS: BP 103/54; PULSE 84; RESP 18; TEMP 35.9; O2SAT 98
[2023-08-28] MEDS: HYDROcodone/acetaminophen (*CRX) 10-325 MG TABLET PO ×5 (00:01→20:50)
[2023-08-28] MEDS: AMPICILLIN SULB 3 GM/NS 100 ML 3 GM/100 ML VIAL IVPB ×4 (00:02→18:15)
[2023-08-28 06:00] VITALS: BP 108/56; PULSE 86; RESP 18; TEMP 36.2; O2SAT 99
[2023-08-28 06:53] LABS: Basophils Absolute Auto 0.1 K/mm3 (0.0-0.1); Basophils Percent Auto 0.8 % (0.2-1.2); Eosinophils Absolute Auto 0.2 K/mm3 (0-0.3); Eosinophils Percent Auto 3.2 % (0-4.4); Hematocrit 35.4 % (37.0-47.0); Hemoglobin 10.4 g/dL (12.0-15.0); Immature Granulocyte Absolute 0.02 K/mm3 (0.00-0.031); Immature Granulocyte Percent A 0.3 % (0-0.5); Lymphocytes Absolute Auto 2.32 K/mm3 (0.9-3.2); Lymphocytes Percent Auto 35.2 % (18.3-44.2); Mean Corpuscular HGB Conc 29.4 g/dl (32-36); Mean Corpuscular Hemoglobin 26.9 pg (26-34); Mean Corpuscular Volume 91.7 fl (80-100); Mean Platelet Volume 8.8 fl (7.4-10.4); Monocytes Absolute Auto 0.6 K/mm3 (0.1-0.6); Monocytes Percent Auto 8.6 % (2.6-8.5); Neutrophils Absolute Auto 3.4 K/mm3 (1.3-6.7); Neutrophils Percent Auto 51.9 % (45.5-73.1); Platelet Count Result 437 k/mm3 (150-375); Red Blood Count 3.86 M/mm3 (4.2-5.4); Red Cell Distribution Width 15.4 % (11.5-14.5); White Blood Count 6.6 K/mm3 (4.5-10.0)
[2023-08-28 07:16] LABS: Alanine Aminotransferase 9 U/L (6-35); Albumin Level 3.2 g/dL (3.5-5.1); Alkaline Phosphatase 101 U/L (38-126); Anion Gap 5 mmol/L (8-16); Aspartate Amino Transferase 17 U/L (14-36); Bilirubin,Total 0.3 mg/dL (0.2-1.3); Blood Urea Nitrogen 8 mg/dL (7-17); Calcium 8.9 mg/dL (8.4-10.2); Carbon Dioxide 33 mmol/L (22-30); Chloride 100 mmol/L (98-107); Estimated CRCL calculation 141 ml/min; Estimated Glomerular Filt Rate > 60; Glucose 90 mg/dL (65-110); Potassium 3.8 mmol/L (3.4-5.0); Sodium 138 mmol/L (137-145)
[2023-08-28] MEDS: ENOXAPARIN 40 MG/0.4 ML SYRINGE SUB-Q (08:31)
[2023-08-28] MEDS: PANTOPRAZOLE 40 MG TABLET PO (08:32)
[2023-08-28] MEDS: LINEZOLID 600 MG TABLET PO ×2 (08:32→20:50)
[2023-08-28] MEDS: MULTIVITAMINS THERAPEUTIC TAB (*BKC) 1 TABLET PO ×2 (08:32→17:38)
[2023-08-28] MEDS: hydroCHLOROthiazide 25 MG TABLET PO (08:32)
[2023-08-28] MEDS: POTASSIUM CHLORIDE 20 MEQ ER TABLET 40 MEQ PO (08:32)
[2023-08-28] MEDS: COLLAGENASE OINT 30 GM TUBE 1 APPLIC TOPICAL (08:33)
[2023-08-28] MEDS: FERROUS GLUCONATE 324 MG TABLET PO (08:35)
[2023-08-28 08:46] LABS: Hypochromasia 1+ (NORMAL); Platelet Estimate Increased (Adequate); Schistocytes None Seen (NORMAL)
--- NOTE | 2023-08-28 09:22 | P.PNIM_ITS ---
Progress Note: A&P Assessment and Plan (1) Cellulitis of right leg: Code(s): L03.115 - Cellulitis of right lower limb Status: Acute Assessment and Plan: 08/24/23: * wound consulted for management * gen surgery consulted for possible I&D, Rogers saw patient in June * Vancomyin and Unasyn * ortho consulted - may need aspiration if no response to treatment * ice, elevation and compression for knee 08/25/23: * General surgery seen patient and is recommending topical enzymatic debridement of her two leg wounds. They will continue to follow * Ortho also seen and does not feel this to be a septic arthritis. No needle aspiration was needed. * Continue with Ice, elevation, and compression of the knee * Continue Ampicillin and Vancomycin IV * Continue pain control 08/26/23: * vancomycin changed to linezolid, we will continue ampicillin IV for now * continue with ice, elevation, compression of the right knee * we changed pain medication to [place] 1-2 tablets as needed for pain and decreased her interval of the dilaudid to Q 3 hours * reporting 8/10 pain in right knee 08/27/23: * Continue antibiotics * Continue weight-bearing as tolerated, ice, elevation, and compression of knee * Continue with pain management with [place] * Continue with dressing changes wound care to right lower extremity * Still reporting 8/10 mainly in her right knee, ortho is following. * We will go ahead and get an MRI of her right knee today 08/28/23: * MRI of right knee revealed moderate tendinopathy and mild partial tear of the lateral patellar insertion of the distal quadriceps tendon, A peripheral enhancement at a 8.4x 5.1x 5.2 cm complex lobular fluid collection in the deep subcutaneous fat at the anterior lateral aspect of the knee in close proximity to the quadriceps tendon tear most likely representing an associated posttraumatic hematoma versus abscess, mild patellofemoral osteoarthritis. * Discussed findings with orthopedic surgeon who states that she needs to go to Radiology to have her knee drained. * Continue with pain management efforts * continue with dressing changes to her right lower extremity * continue to ice, elevate, and compress * continue antibiotics * orthopedic surgery following (2) Wound of right lower extremity: Qualifiers: Encounter type: subsequent encounter Qualified Code(s): S81.801D - Unspecified open wound, right lower leg, subsequent encounter Code(s): S81.801A - Unspecified open wound, right lower leg, initial encounter Status: Acute Assessment and Plan: 08/24/23: * wound consulted for management * gen surgery consulted for possible I&D, Rogers saw patient in June * Vancomyin and Unasyn 08/25/23: * No I and D needed at this time, general surgery recommending topical enzymatic debridement agent with dressing changes * Wound consulted. * Continue IV antibiotics. * General surgery following. 08/26/23: * Continue antibiotics as noted above * No change to current treatment plan 08/27/23: * Continue with dressing changes and wound care * Continue antibiotics as noted above * General surgery following 08/28/2023: * no change to current treatment plan (3) Hypertension: Code(s): I10 - Essential (primary) hypertension Status: Acute Assessment and Plan: 08/24/23: * continue home meds 08/25/23: * B/P 99/66-103/58 * On HCTZ 25 mg daily * no change to current treatment plan 08/26/23: * B/P 96/53-114/72 * No change to current treatment plan
--- NOTE | 2023-08-28 09:22 | PM.IMPN ---
Progress Note: A&P Assessment and Plan (1) Cellulitis of right leg: Code(s): L03.115 - Cellulitis of right lower limb Status: Acute Assessment and Plan: 08/24/23: wound consulted for management gen surgery consulted for possible I&D, Rogers saw patient in June Gamal and Kaylasyn ortho consulted - may need aspiration if no response to treatment ice, elevation and compression for knee 08/25/23: General surgery seen patient and is recommending topical enzymatic debridement of her two leg wounds. They will continue to follow Ortho also seen and does not feel this to be a septic arthritis. No needle aspiration was needed. Continue with Ice, elevation, and compression of the knee Continue Ampicillin and Vancomycin IV Continue pain control 08/26/23: vancomycin changed to linezolid, we will continue ampicillin IV for now continue with ice, elevation, compression of the right knee we changed pain medication to [place] 1-2 tablets as needed for pain and decreased her interval of the dilaudid to Q 3 hours reporting 8/10 pain in right knee 08/27/23: Continue antibiotics Continue weight-bearing as tolerated, ice, elevation, and compression of knee Continue with pain management with [place] Continue with dressing changes wound care to right lower extremity Still reporting 8/10 mainly in her right knee, ortho is following. We will go ahead and get an MRI of her right knee today 08/28/23: MRI of right knee revealed moderate tendinopathy and mild partial tear of the lateral patellar insertion of the distal quadriceps tendon, A peripheral enhancement at a 8.4x 5.1x 5.2 cm complex lobular fluid collection in the deep subcutaneous fat at the anterior lateral aspect of the knee in close proximity to the quadriceps tendon tear most likely representing an associated posttraumatic hematoma versus abscess, mild patellofemoral osteoarthritis. Discussed findings with orthopedic surgeon who states that she needs to go to Radiology to have her knee drained. Continue with pain management efforts continue with dressing changes to her right lower extremity continue to ice, elevate, and compress continue antibiotics orthopedic surgery following (2) Wound of right lower extremity: Qualifiers: Encounter type: subsequent encounter Qualified Code(s): S81.801D - Unspecified open wound, right lower leg, subsequent encounter Code(s): S81.801A - Unspecified open wound, right lower leg, initial encounter Status: Acute Assessment and Plan: 08/24/23: wound consulted for management gen surgery consulted for possible I&D, Rogers saw patient in June Vancomyin and Unasyn 08/25/23: No I and D needed at this time, general surgery recommending topical enzymatic debridement agent with dressing changes Wound consulted. Continue IV antibiotics. General surgery following. 08/26/23: Continue antibiotics as noted above No change to current treatment plan 08/27/23: Continue with dressing changes and wound care Continue antibiotics as noted above General surgery following 08/28/2023: no change to current treatment plan (3) Hypertension: Code(s): I10 - Essential (primary) hypertension Status: Acute Assessment and Plan: 08/24/23: continue home meds 08/25/23: B/P 99/66-103/58 On HCTZ 25 mg daily no change to current treatment plan 08/26/23: B/P 96/53-114/72 No change to current treatment plan 08/27/23: Blood pressure remains stable No change to current treatment plan 08/28/2023: no change to current treatment plan (4) Obesity (BMI 35.0-39.9 without comorbidity): Code(s): E66.9 - Obesity, unspecified Status: Chronic Assessment and Plan: 08/24/23: Lifestyle and diet modifications 08/25/23: BMI 36.5, 112kg 08/26/23: no change, of note Time Spent With Patient Time with patient: Greater than 35 mi
[2023-08-28] MEDS: HYDROmorphone HCL INJ (*CRX) 1 MG/ML SYR 0.5 MG IV PUSH (13:03)
[2023-08-28 14:00] VITALS: BP 119/73; PULSE 75; RESP 18; TEMP 36.7; O2SAT 100
[2023-08-28 21:44] VITALS: BP 113/63; PULSE 84; RESP 20; TEMP 36.1; O2SAT 100
[2023-08-29] MEDS: HYDROmorphone HCL INJ (*CRX) 1 MG/ML SYR 0.5 MG IV PUSH ×4 (00:07→20:11)
[2023-08-29] MEDS: AMPICILLIN SULB 3 GM/NS 100 ML 3 GM/100 ML VIAL IVPB ×5 (00:50→23:34)
[2023-08-29] MEDS: HYDROcodone/acetaminophen (*CRX) 10-325 MG TABLET PO ×3 (04:19→17:58)
[2023-08-29 05:02] VITALS: BP 113/54; PULSE 77; RESP 20; TEMP 36.4; O2SAT 100
[2023-08-29] MEDS: POTASSIUM CHLORIDE 20 MEQ ER TABLET 40 MEQ PO (10:01)
[2023-08-29] MEDS: ENOXAPARIN 40 MG/0.4 ML SYRINGE SUB-Q (10:01)
[2023-08-29] MEDS: MULTIVITAMINS THERAPEUTIC TAB (*BKC) 1 TABLET PO ×2 (10:01→17:56)
[2023-08-29] MEDS: hydroCHLOROthiazide 25 MG TABLET PO (10:01)
[2023-08-29] MEDS: FERROUS GLUCONATE 324 MG TABLET PO (10:01)
[2023-08-29] MEDS: LINEZOLID 600 MG TABLET PO ×2 (10:01→21:15)
[2023-08-29] MEDS: PANTOPRAZOLE 40 MG TABLET PO (10:01)
[2023-08-29] MEDS: COLLAGENASE OINT 30 GM TUBE 1 APPLIC TOPICAL (10:05)
--- NOTE | 2023-08-29 10:57 | P.PNIM_ITS ---
Progress Note: A&P Assessment and Plan (1) Cellulitis of right leg: Code(s): L03.115 - Cellulitis of right lower limb Status: Acute Assessment and Plan: 08/24/23: * wound consulted for management * gen surgery consulted for possible I&D, Rogers saw patient in June * Vancomyin and Unasyn * ortho consulted - may need aspiration if no response to treatment * ice, elevation and compression for knee 08/25/23: * General surgery seen patient and is recommending topical enzymatic debridement of her two leg wounds. They will continue to follow * Ortho also seen and does not feel this to be a septic arthritis. No needle aspiration was needed. * Continue with Ice, elevation, and compression of the knee * Continue Ampicillin and Vancomycin IV * Continue pain control 08/26/23: * vancomycin changed to linezolid, we will continue ampicillin IV for now * continue with ice, elevation, compression of the right knee * we changed pain medication to [place] 1-2 tablets as needed for pain and decreased her interval of the dilaudid to Q 3 hours * reporting 8/10 pain in right knee 08/27/23: * Continue antibiotics * Continue weight-bearing as tolerated, ice, elevation, and compression of knee * Continue with pain management with [place] * Continue with dressing changes wound care to right lower extremity * Still reporting 8/10 mainly in her right knee, ortho is following. * We will go ahead and get an MRI of her right knee today 08/28/23: * MRI of right knee revealed moderate tendinopathy and mild partial tear of the lateral patellar insertion of the distal quadriceps tendon, A peripheral enhancement at a 8.4x 5.1x 5.2 cm complex lobular fluid collection in the deep subcutaneous fat at the anterior lateral aspect of the knee in close proximity to the quadriceps tendon tear most likely representing an associated posttraumatic hematoma versus abscess, mild patellofemoral osteoarthritis. * Discussed findings with orthopedic surgeon who states that she needs to go to Radiology to have her knee drained. * Continue with pain management efforts * continue with dressing changes to her right lower extremity * continue to ice, elevate, and compress * continue antibiotics * orthopedic surgery following 08/29/23: * no change to current treatment plan * Plan for patient to get US guided needle aspiration of fluid collection on right leg * NPO after midnight tonight. (2) Wound of right lower extremity: Qualifiers: Encounter type: subsequent encounter Qualified Code(s): S81.801D - Unspecified open wound, right lower leg, subsequent encounter Code(s): S81.801A - Unspecified open wound, right lower leg, initial encounter Status: Acute Assessment and Plan: 08/24/23: * wound consulted for management * gen surgery consulted for possible I&D, Mccloud saw patient in June * Vancomyin and Unasyn 08/25/23: * No I and D needed at this time, general surgery recommending topical enzymatic debridement agent with dressing changes * Wound consulted. * Continue IV antibiotics. * General surgery following. 08/26/23: * Continue antibiotics as noted above * No change to current treatment plan 08/27/23: * Continue with dressing changes and wound care * Continue antibiotics as noted above * General surgery following 08/28/2023: * no change to current treatment plan (3) Hypertension: Code(s): I10 - Essential (primary) hypertension Status: Acute Assessment and Plan: 08/24/23: * continue home meds
--- NOTE | 2023-08-29 10:57 | PM.IMPN ---
Progress Note: A&P Assessment and Plan (1) Cellulitis of right leg: Code(s): L03.115 - Cellulitis of right lower limb Status: Acute Assessment and Plan: 08/24/23: wound consulted for management gen surgery consulted for possible I&D, Rogers saw patient in June Gamal and Kaylasyn ortho consulted - may need aspiration if no response to treatment ice, elevation and compression for knee 08/25/23: General surgery seen patient and is recommending topical enzymatic debridement of her two leg wounds. They will continue to follow Ortho also seen and does not feel this to be a septic arthritis. No needle aspiration was needed. Continue with Ice, elevation, and compression of the knee Continue Ampicillin and Vancomycin IV Continue pain control 08/26/23: vancomycin changed to linezolid, we will continue ampicillin IV for now continue with ice, elevation, compression of the right knee we changed pain medication to [place] 1-2 tablets as needed for pain and decreased her interval of the dilaudid to Q 3 hours reporting 8/10 pain in right knee 08/27/23: Continue antibiotics Continue weight-bearing as tolerated, ice, elevation, and compression of knee Continue with pain management with [place] Continue with dressing changes wound care to right lower extremity Still reporting 8/10 mainly in her right knee, ortho is following. We will go ahead and get an MRI of her right knee today 08/28/23: MRI of right knee revealed moderate tendinopathy and mild partial tear of the lateral patellar insertion of the distal quadriceps tendon, A peripheral enhancement at a 8.4x 5.1x 5.2 cm complex lobular fluid collection in the deep subcutaneous fat at the anterior lateral aspect of the knee in close proximity to the quadriceps tendon tear most likely representing an associated posttraumatic hematoma versus abscess, mild patellofemoral osteoarthritis. Discussed findings with orthopedic surgeon who states that she needs to go to Radiology to have her knee drained. Continue with pain management efforts continue with dressing changes to her right lower extremity continue to ice, elevate, and compress continue antibiotics orthopedic surgery following 08/29/23: no change to current treatment plan Plan for patient to get US guided needle aspiration of fluid collection on right leg NPO after midnight tonight. (2) Wound of right lower extremity: Qualifiers: Encounter type: subsequent encounter Qualified Code(s): S81.801D - Unspecified open wound, right lower leg, subsequent encounter Code(s): S81.801A - Unspecified open wound, right lower leg, initial encounter Status: Acute Assessment and Plan: 08/24/23: wound consulted for management gen surgery consulted for possible I&D, Mccloud saw patient in June Vancomyin and [place] 08/25/23: No I and D needed at this time, general surgery recommending topical enzymatic debridement agent with dressing changes Wound consulted. Continue IV antibiotics. General surgery following. 08/26/23: Continue antibiotics as noted above No change to current treatment plan 08/27/23: Continue with dressing changes and wound care Continue antibiotics as noted above General surgery following 08/28/2023: no change to current treatment plan (3) Hypertension: Code(s): I10 - Essential (primary) hypertension Status: Acute Assessment and Plan: 08/24/23: continue home meds 08/25/23: B/P 99/66-103/58 On HCTZ 25 mg daily no change to current treatment plan 08/26/23: B/P 96/53-114/72 No change to current treatment plan 08/27/23: Blood pressure remains stable No change to current treatment plan 08/28/2023: no change to current treatment plan (4) Obesity (BMI 35.0-39.9 without comorbidity): Code(s): E66.9 - Obesity, unspecified Status: Chronic Assessment and Plan: 08/13
[2023-08-29 11:21] LABS: Hematocrit 31.8 % (37.0-47.0); Hemoglobin 9.3 g/dL (12.0-15.0); Mean Corpuscular HGB Conc 29.2 g/dl (32-36); Mean Corpuscular Hemoglobin 27.1 pg (26-34); Mean Corpuscular Volume 92.7 fl (80-100); Mean Platelet Volume 8.6 fl (7.4-10.4); Platelet Count Result 409 k/mm3 (150-375); Red Blood Count 3.43 M/mm3 (4.2-5.4); Red Cell Distribution Width 15.6 % (11.5-14.5); White Blood Count 6.4 K/mm3 (4.5-10.0)
[2023-08-29 11:31] LABS: Alanine Aminotransferase 9 U/L (6-35); Albumin Level 2.9 g/dL (3.5-5.1); Alkaline Phosphatase 91 U/L (38-126); Anion Gap 2 mmol/L (8-16); Aspartate Amino Transferase 19 U/L (14-36); Bilirubin,Total 0.2 mg/dL (0.2-1.3); Blood Urea Nitrogen 7 mg/dL (7-17); Calcium 8.5 mg/dL (8.4-10.2); Carbon Dioxide 32 mmol/L (22-30); Chloride 103 mmol/L (98-107); Estimated CRCL calculation 141 ml/min; Estimated Glomerular Filt Rate > 60; Glucose 83 mg/dL (65-110); Potassium 3.8 mmol/L (3.4-5.0); Sodium 137 mmol/L (137-145)
[2023-08-29 14:00] VITALS: BP 103/59; PULSE 83; RESP 16; TEMP 36.5; O2SAT 100
[2023-08-29 20:10] VITALS: BP 98/53; PULSE 84; RESP 18; TEMP 36.4; O2SAT 96
[2023-08-30 06:00] VITALS: BP 116/85; PULSE 73; RESP 18; TEMP 36.7; O2SAT 99
[2023-08-30] MEDS: AMPICILLIN SULB 3 GM/NS 100 ML 3 GM/100 ML VIAL IVPB ×4 (06:10→23:51)
[2023-08-30 07:47] LABS: Basophils Absolute Auto 0.1 K/mm3 (0.0-0.1); Basophils Percent Auto 0.8 % (0.2-1.2); Eosinophils Absolute Auto 0.2 K/mm3 (0-0.3); Eosinophils Percent Auto 3.7 % (0-4.4); Hematocrit 32.2 % (37.0-47.0); Hemoglobin 9.2 g/dL (12.0-15.0); Immature Granulocyte Absolute 0.02 K/mm3 (0.00-0.031); Immature Granulocyte Percent A 0.3 % (0-0.5); Lymphocytes Absolute Auto 2.62 K/mm3 (0.9-3.2); Lymphocytes Percent Auto 42.3 % (18.3-44.2); Mean Corpuscular HGB Conc 28.6 g/dl (32-36); Mean Corpuscular Volume 94.4 fl (80-100); Mean Platelet Volume 8.5 fl (7.4-10.4); Monocytes Absolute Auto 0.6 K/mm3 (0.1-0.6); Neutrophils Absolute Auto 2.7 K/mm3 (1.3-6.7); Neutrophils Percent Auto 43.9 % (45.5-73.1); Platelet Count Result 367 k/mm3 (150-375); Red Blood Count 3.41 M/mm3 (4.2-5.4); Red Cell Distribution Width 15.8 % (11.5-14.5); White Blood Count 6.2 K/mm3 (4.5-10.0)
[2023-08-30 08:41] LABS: Alanine Aminotransferase 9 U/L (6-35); Albumin Level 2.5 g/dL (3.5-5.1); Alkaline Phosphatase 88 U/L (38-126); Anion Gap 3 mmol/L (8-16); Aspartate Amino Transferase 16 U/L (14-36); Bilirubin,Total 0.3 mg/dL (0.2-1.3); Blood Urea Nitrogen 6 mg/dL (7-17); Calcium 8.6 mg/dL (8.4-10.2); Carbon Dioxide 28 mmol/L (22-30); Chloride 105 mmol/L (98-107); Estimated CRCL calculation 141 ml/min; Estimated Glomerular Filt Rate > 60; Glucose 75 mg/dL (65-110); Potassium 4.2 mmol/L (3.4-5.0); Sodium 136 mmol/L (137-145)
[2023-08-30] MEDS: HYDROmorphone HCL INJ (*CRX) 1 MG/ML SYR 0.5 MG IV PUSH ×3 (09:48→20:31)
[2023-08-30] MEDS: COLLAGENASE OINT 30 GM TUBE 1 APPLIC TOPICAL (09:49)
[2023-08-30] MEDS: LINEZOLID 600 MG TABLET PO ×2 (09:49→20:31)
[2023-08-30] MEDS: hydroCHLOROthiazide 25 MG TABLET PO (09:49)
[2023-08-30] MEDS: ALPRAZolam (*CRX) 0.5 MG TABLET PO (11:51)
--- NOTE | 2023-08-30 13:51 | P.PNIM_ITS ---
Progress Note: A&P Assessment and Plan (1) Cellulitis of right leg: Code(s): L03.115 - Cellulitis of right lower limb Status: Acute Assessment and Plan: 08/24/23: * wound consulted for management * gen surgery consulted for possible I&D, Rogers saw patient in June * Vancomyin and Unasyn * ortho consulted - may need aspiration if no response to treatment * ice, elevation and compression for knee 08/25/23: * General surgery seen patient and is recommending topical enzymatic debridement of her two leg wounds. They will continue to follow * Ortho also seen and does not feel this to be a septic arthritis. No needle aspiration was needed. * Continue with Ice, elevation, and compression of the knee * Continue Ampicillin and Vancomycin IV * Continue pain control 08/26/23: * vancomycin changed to linezolid, we will continue ampicillin IV for now * continue with ice, elevation, compression of the right knee * we changed pain medication to [place] 1-2 tablets as needed for pain and decreased her interval of the dilaudid to Q 3 hours * reporting 8/10 pain in right knee 08/27/23: * Continue antibiotics * Continue weight-bearing as tolerated, ice, elevation, and compression of knee * Continue with pain management with [place] * Continue with dressing changes wound care to right lower extremity * Still reporting 8/10 mainly in her right knee, ortho is following. * We will go ahead and get an MRI of her right knee today 08/28/23: * MRI of right knee revealed moderate tendinopathy and mild partial tear of the lateral patellar insertion of the distal quadriceps tendon, A peripheral enhancement at a 8.4x 5.1x 5.2 cm complex lobular fluid collection in the deep subcutaneous fat at the anterior lateral aspect of the knee in close proximity to the quadriceps tendon tear most likely representing an associated posttraumatic hematoma versus abscess, mild patellofemoral osteoarthritis. * Discussed findings with orthopedic surgeon who states that she needs to go to Radiology to have her knee drained. * Continue with pain management efforts * continue with dressing changes to her right lower extremity * continue to ice, elevate, and compress * continue antibiotics * orthopedic surgery following 08/29/23: * no change to current treatment plan * Plan for patient to get US guided needle aspiration of fluid collection on right leg * NPO after midnight tonight. 08/30/23: * No change to current treatment plan * Patient to have US guided needle aspiration of fluid collection on the right leg * Fluid will be sent for culture * Ordered Xanax prior to procedure (2) Wound of right lower extremity: Qualifiers: Encounter type: subsequent encounter Qualified Code(s): S81.801D - Unspecified open wound, right lower leg, subsequent encounter Code(s): S81.801A - Unspecified open wound, right lower leg, initial encounter Status: Acute Assessment and Plan: 08/24/23: * wound consulted for management * gen surgery consulted for possible I&D, Rogers saw patient in June * Vancomyin and Unasyn 08/25/23: * No I and D needed at this time, general surgery recommending topical enzymatic debridement agent with dressing changes * Wound consulted. * Continue IV antibiotics. * General surgery following. 08/26/23: * Continue antibiotics as noted above * No change to current treatment plan 08/27/23: * Continue with dressing changes and wound care * Continue antibiotics as noted above * General surgery following
--- NOTE | 2023-08-30 13:51 | PM.IMPN ---
Progress Note: A&P Assessment and Plan (1) Cellulitis of right leg: Code(s): L03.115 - Cellulitis of right lower limb Status: Acute Assessment and Plan: 08/24/23: wound consulted for management gen surgery consulted for possible I&D, Rogers saw patient in June Gamal and Kaylasyn ortho consulted - may need aspiration if no response to treatment ice, elevation and compression for knee 08/25/23: General surgery seen patient and is recommending topical enzymatic debridement of her two leg wounds. They will continue to follow Ortho also seen and does not feel this to be a septic arthritis. No needle aspiration was needed. Continue with Ice, elevation, and compression of the knee Continue Ampicillin and Vancomycin IV Continue pain control 08/26/23: vancomycin changed to linezolid, we will continue ampicillin IV for now continue with ice, elevation, compression of the right knee we changed pain medication to [place] 1-2 tablets as needed for pain and decreased her interval of the dilaudid to Q 3 hours reporting 8/10 pain in right knee 08/27/23: Continue antibiotics Continue weight-bearing as tolerated, ice, elevation, and compression of knee Continue with pain management with [place] Continue with dressing changes wound care to right lower extremity Still reporting 8/10 mainly in her right knee, ortho is following. We will go ahead and get an MRI of her right knee today 08/28/23: MRI of right knee revealed moderate tendinopathy and mild partial tear of the lateral patellar insertion of the distal quadriceps tendon, A peripheral enhancement at a 8.4x 5.1x 5.2 cm complex lobular fluid collection in the deep subcutaneous fat at the anterior lateral aspect of the knee in close proximity to the quadriceps tendon tear most likely representing an associated posttraumatic hematoma versus abscess, mild patellofemoral osteoarthritis. Discussed findings with orthopedic surgeon who states that she needs to go to Radiology to have her knee drained. Continue with pain management efforts continue with dressing changes to her right lower extremity continue to ice, elevate, and compress continue antibiotics orthopedic surgery following 08/29/23: no change to current treatment plan Plan for patient to get US guided needle aspiration of fluid collection on right leg NPO after midnight tonight. 08/30/23: No change to current treatment plan Patient to have US guided needle aspiration of fluid collection on the right leg Fluid will be sent for culture Ordered Xanax prior to procedure (2) Wound of right lower extremity: Qualifiers: Encounter type: subsequent encounter Qualified Code(s): S81.801D - Unspecified open wound, right lower leg, subsequent encounter Code(s): S81.801A - Unspecified open wound, right lower leg, initial encounter Status: Acute Assessment and Plan: 08/24/23: wound consulted for management gen surgery consulted for possible I&D, Rogers saw patient in June [place] and Unasyn 08/25/23: No I and D needed at this time, general surgery recommending topical enzymatic debridement agent with dressing changes Wound consulted. Continue IV antibiotics. General surgery following. 08/26/23: Continue antibiotics as noted above No change to current treatment plan 08/27/23: Continue with dressing changes and wound care Continue antibiotics as noted above General surgery following 08/28/2023: no change to current treatment plan (3) Hypertension: Code(s): I10 - Essential (primary) hypertension Status: Acute Assessment and Plan: 08/24/23: continue home meds 08/25/23: B/P 99/66-103/58 On HCTZ 25 mg daily no change to current treatment plan 08/26/23: B/P 96/53-114/72 No change to current treatment plan 08/27/23: Blood pressure remains stable No change to current treatment plan 1
[2023-08-30] MEDS: HYDROcodone/acetaminophen (*CRX) 10-325 MG TABLET PO ×3 (13:55→23:52)
[2023-08-30 14:00] VITALS: BP 121/78; PULSE 78; RESP 18; TEMP 36.7; O2SAT 97
--- NOTE | 2023-08-30 15:35 | PM.PNORT ---
Progress Note: A&P Assessment and Plan (1) Cellulitis of right leg: Code(s): L03.115 - Cellulitis of right lower limb Status: Acute Assessment and Plan: Continued improvement in right leg erythema and swelling. Patient being followed by General surgery for lower extremity wounds with enzymatic debridement. MRI of the knee obtained by medicine team due to continued pain. MRI reveals moderate tendinopathy and mild partial tear of the lateral patellar insertion of the distal quadriceps tendon. There is also noted to be a 8.4 x 5.1 x 5.2 cm complex lobular fluid collection in the deep subcutaneous fat at the anterolateral aspect of the knee in close proximity to the quadriceps tendon tear. Fluid collection removed by radiology today. Gram stain and cultures pending. Recommend PT/OT. WBAT. OOB to chair. Ice Knee. Antibiotics per medicine team. Pain control. Subjective Subjective Date/Time Seen: 08/30/23 15:35 Principal diagnosis: Right leg cellulitis Interval history: Patient back from knee fluid aspiration by radiology. Continues to report right knee pain. No relief despite aspiration. Review of Systems Constitutional: Constitutional: Denies fever(s) Eyes: Eyes: Denies blurry vision ENT: Reports Normal hearing present Cardiovascular: Cardiovascular: Denies chest pain and Denies dyspnea Respiratory: Respiratory: Denies dyspnea and Denies wheezing Gastrointestinal: Gastrointestinal: Denies abdominal pain Genitourinary: Genitourinary: Denies urinary urgency Musculoskeletal: Musculoskeletal: Reports as per HPI and Denies numbness Integumentary/Breasts: Skin/Breast: Denies changing lesions and Denies sores Neurologic: Reports Normal hearing present, Denies behavioral changes, Denies confusion, Denies numbness and Denies convulsions Psychiatric: Psychiatric: Denies behavioral changes, Denies confusion and Denies hallucinations Endocrine: Endocrine: Denies heat intolerance Hematologic/Lymphatic: Hematologic/Lymphatic: Denies easy bleeding Allergic/Immunologic: Allergic/Immunologic: Denies wheezing Exam Const: General: healthy appearing; No in distress or confusion Orientation/consciousness: oriented to person, oriented to place, oriented to time and No confusion HENMT: Head: normal to inspection, normocephalic and atraumatic Eyes: Conjunctivae: conjunctivae normal Sclera: sclerae normal Neck: Neck: supple and nontender Resp: Effort & Inspection: normal respiratory effort and no audible wheezes Cardio: Rate: regular rate Rhythm: regular rhythm Skin: General skin exam: no rashes or lesions noted Neuro: General: oriented to person, oriented to place, oriented to time and No confusion Extrem: Right upper extremity: normal to inspection Left upper extremity: normal to inspection Right lower extremity: hip/thigh Details: normal ROM; no tenderness, knee Details: tenderness (anterior and medial joint line ) Location: of the medial joint line (moderate ) and of the pre-patellar area (moderate ), swelling (peripatellar and medial joint ), abnormal ROM (active range of motion -10 degrees extension, 110 degrees flexion) Details: pain with active ROM during Details: in extension and in flexion, knee ligament exam normal Details: anterior drawer test normal, posterior drawer test normal, valgus stress test normal and Zena?s test normal, knee ligament exam abnormal Details: varus stress test normal (painful medial ) and Aggie's Test Details: positive medially and foot Details: normal capillary refill, toes with normal ROM, vascular exam Details: dorsalis pedis pulse present and motor-sensory exam Details: light-touch normal; no tenderness; no edema Left lower extremity: normal to inspection, normal capillary refill and knee Details: normal ROM (Active extension 5, flexion 130) and knee ligament exam normal; no tenderness Other: Erythema over the anterior aspect of the right knee improved. T
[2023-08-30] MEDS: POTASSIUM CHLORIDE 20 MEQ ER TABLET 40 MEQ PO (15:57)
[2023-08-30] MEDS: PANTOPRAZOLE 40 MG TABLET PO (15:58)
[2023-08-30] MEDS: MULTIVITAMINS THERAPEUTIC TAB (*BKC) 1 TABLET PO (15:58)
[2023-08-30] MEDS: FERROUS GLUCONATE 324 MG TABLET PO (15:58)
[2023-08-30 22:00] VITALS: BP 108/63; PULSE 80; RESP 18; TEMP 36.8; O2SAT 98
[2023-08-31] MEDS: HYDROmorphone HCL INJ (*CRX) 1 MG/ML SYR 0.5 MG IV PUSH ×3 (02:37→21:43)
[2023-08-31 06:00] VITALS: BP 110/70; PULSE 74; RESP 18; TEMP 36.7; O2SAT 99
[2023-08-31] MEDS: AMPICILLIN SULB 3 GM/NS 100 ML 3 GM/100 ML VIAL IVPB ×2 (06:05→12:00)
[2023-08-31 06:56] LABS: Basophils Absolute Auto 0.1 K/mm3 (0.0-0.1); Basophils Percent Auto 0.9 % (0.2-1.2); Eosinophils Absolute Auto 0.2 K/mm3 (0-0.3); Eosinophils Percent Auto 3.7 % (0-4.4); Hematocrit 34.2 % (37.0-47.0); Hemoglobin 9.6 g/dL (12.0-15.0); Immature Granulocyte Absolute 0.01 K/mm3 (0.00-0.031); Immature Granulocyte Percent A 0.2 % (0-0.5); Lymphocytes Absolute Auto 2.58 K/mm3 (0.9-3.2); Lymphocytes Percent Auto 45.2 % (18.3-44.2); Mean Corpuscular HGB Conc 28.1 g/dl (32-36); Mean Corpuscular Volume 96.1 fl (80-100); Monocytes Absolute Auto 0.5 K/mm3 (0.1-0.6); Monocytes Percent Auto 9.5 % (2.6-8.5); Neutrophils Absolute Auto 2.3 K/mm3 (1.3-6.7); Neutrophils Percent Auto 40.5 % (45.5-73.1); Platelet Count Result 385 k/mm3 (150-375); Red Blood Count 3.56 M/mm3 (4.2-5.4); Red Cell Distribution Width 15.9 % (11.5-14.5); White Blood Count 5.7 K/mm3 (4.5-10.0)
[2023-08-31 07:08] LABS: Alanine Aminotransferase 10 U/L (6-35); Albumin Level 2.7 g/dL (3.5-5.1); Alkaline Phosphatase 79 U/L (38-126); Anion Gap 5 mmol/L (8-16); Aspartate Amino Transferase 50 U/L (14-36); Bilirubin,Total 0.5 mg/dL (0.2-1.3); Blood Urea Nitrogen 7 mg/dL (7-17); Calcium 8.3 mg/dL (8.4-10.2); Carbon Dioxide 23 mmol/L (22-30); Chloride 108 mmol/L (98-107); Estimated CRCL calculation 141 ml/min; Estimated Glomerular Filt Rate > 60; Glucose 91 mg/dL (65-110); Potassium 4.5 mmol/L (3.4-5.0); Sodium 136 mmol/L (137-145)
[2023-08-31] MEDS: LINEZOLID 600 MG TABLET PO ×2 (08:56→21:43)
[2023-08-31] MEDS: ENOXAPARIN 40 MG/0.4 ML SYRINGE SUB-Q (08:56)
[2023-08-31] MEDS: PANTOPRAZOLE 40 MG TABLET PO (08:56)
[2023-08-31] MEDS: hydroCHLOROthiazide 25 MG TABLET PO (08:56)
[2023-08-31] MEDS: FERROUS GLUCONATE 324 MG TABLET PO (08:56)
[2023-08-31] MEDS: COLLAGENASE OINT 30 GM TUBE 1 APPLIC TOPICAL (08:56)
[2023-08-31] MEDS: POTASSIUM CHLORIDE 20 MEQ ER TABLET 40 MEQ PO (08:56)
[2023-08-31] MEDS: MULTIVITAMINS THERAPEUTIC TAB (*BKC) 1 TABLET PO ×2 (08:56→15:31)
--- NOTE | 2023-08-31 09:02 | P.PNIM_ITS ---
Progress Note: A&P Assessment and Plan (1) Cellulitis of right leg: Code(s): L03.115 - Cellulitis of right lower limb Status: Acute Assessment and Plan: 08/24/23: * wound consulted for management * gen surgery consulted for possible I&D, Rogers saw patient in June * Vancomyin and Unasyn * ortho consulted - may need aspiration if no response to treatment * ice, elevation and compression for knee 08/25/23: * General surgery seen patient and is recommending topical enzymatic debridement of her two leg wounds. They will continue to follow * Ortho also seen and does not feel this to be a septic arthritis. No needle aspiration was needed. * Continue with Ice, elevation, and compression of the knee * Continue Ampicillin and Vancomycin IV * Continue pain control 08/26/23: * vancomycin changed to linezolid, we will continue ampicillin IV for now * continue with ice, elevation, compression of the right knee * we changed pain medication to [place] 1-2 tablets as needed for pain and decreased her interval of the dilaudid to Q 3 hours * reporting 8/10 pain in right knee 08/27/23: * Continue antibiotics * Continue weight-bearing as tolerated, ice, elevation, and compression of knee * Continue with pain management with [place] * Continue with dressing changes wound care to right lower extremity * Still reporting 8/10 mainly in her right knee, ortho is following. * We will go ahead and get an MRI of her right knee today 08/28/23: * MRI of right knee revealed moderate tendinopathy and mild partial tear of the lateral patellar insertion of the distal quadriceps tendon, A peripheral enhancement at a 8.4x 5.1x 5.2 cm complex lobular fluid collection in the deep subcutaneous fat at the anterior lateral aspect of the knee in close proximity to the quadriceps tendon tear most likely representing an associated posttraumatic hematoma versus abscess, mild patellofemoral osteoarthritis. * Discussed findings with orthopedic surgeon who states that she needs to go to Radiology to have her knee drained. * Continue with pain management efforts * continue with dressing changes to her right lower extremity * continue to ice, elevate, and compress * continue antibiotics * orthopedic surgery following 08/29/23: * no change to current treatment plan * Plan for patient to get US guided needle aspiration of fluid collection on right leg * NPO after midnight tonight. 08/30/23: * No change to current treatment plan * Patient to have US guided needle aspiration of fluid collection on the right leg * Fluid will be sent for culture * Ordered Xanax prior to procedure 08/31/23: * Fluid culture pending * 20ml of fluid drained with the US guided needle aspiration yesterday * Continue pain control * WBAT * Continue to ice, elevate the knee * Switching Ampicillin to oral antibiotic Augmentin (2) Wound of right lower extremity: Qualifiers: Encounter type: subsequent encounter Qualified Code(s): S81.801D - Unspecified open wound, right lower leg, subsequent encounter Code(s): S81.801A - Unspecified open wound, right lower leg, initial encounter Status: Acute Assessment and Plan: 08/24/23: * wound consulted for management * gen surgery consulted for possible I&D, Rogers saw patient in June * [place] 08/25/23: * No I and D needed at this time, general surgery recommending topical enzymatic debridement agent with dressing changes * Wound consulted. * Continue IV antibiotics. * General surgery following.
--- NOTE | 2023-08-31 09:02 | PM.IMPN ---
Progress Note: A&P Assessment and Plan (1) Cellulitis of right leg: Code(s): L03.115 - Cellulitis of right lower limb Status: Acute Assessment and Plan: 08/24/23: wound consulted for management gen surgery consulted for possible I&D, Rogers saw patient in June Gamal and Kaylasyn ortho consulted - may need aspiration if no response to treatment ice, elevation and compression for knee 08/25/23: General surgery seen patient and is recommending topical enzymatic debridement of her two leg wounds. They will continue to follow Ortho also seen and does not feel this to be a septic arthritis. No needle aspiration was needed. Continue with Ice, elevation, and compression of the knee Continue Ampicillin and Vancomycin IV Continue pain control 08/26/23: vancomycin changed to linezolid, we will continue ampicillin IV for now continue with ice, elevation, compression of the right knee we changed pain medication to [place] 1-2 tablets as needed for pain and decreased her interval of the dilaudid to Q 3 hours reporting 8/10 pain in right knee 08/27/23: Continue antibiotics Continue weight-bearing as tolerated, ice, elevation, and compression of knee Continue with pain management with [place] Continue with dressing changes wound care to right lower extremity Still reporting 8/10 mainly in her right knee, ortho is following. We will go ahead and get an MRI of her right knee today 08/28/23: MRI of right knee revealed moderate tendinopathy and mild partial tear of the lateral patellar insertion of the distal quadriceps tendon, A peripheral enhancement at a 8.4x 5.1x 5.2 cm complex lobular fluid collection in the deep subcutaneous fat at the anterior lateral aspect of the knee in close proximity to the quadriceps tendon tear most likely representing an associated posttraumatic hematoma versus abscess, mild patellofemoral osteoarthritis. Discussed findings with orthopedic surgeon who states that she needs to go to Radiology to have her knee drained. Continue with pain management efforts continue with dressing changes to her right lower extremity continue to ice, elevate, and compress continue antibiotics orthopedic surgery following 08/29/23: no change to current treatment plan Plan for patient to get US guided needle aspiration of fluid collection on right leg NPO after midnight tonight. 08/30/23: No change to current treatment plan Patient to have US guided needle aspiration of fluid collection on the right leg Fluid will be sent for culture Ordered Xanax prior to procedure 08/31/23: Fluid culture pending 20ml of fluid drained with the US guided needle aspiration yesterday Continue pain control WBAT Continue to ice, elevate the knee Switching Ampicillin to oral antibiotic Augmentin (2) Wound of right lower extremity: Qualifiers: Encounter type: subsequent encounter Qualified Code(s): S81.801D - Unspecified open wound, right lower leg, subsequent encounter Code(s): S81.801A - Unspecified open wound, right lower leg, initial encounter Status: Acute Assessment and Plan: 08/24/23: wound consulted for management gen surgery consulted for possible I&D, Rogers saw patient in June Vancomyin and Unasyn 08/25/23: No I and D needed at this time, general surgery recommending topical enzymatic debridement agent with dressing changes Wound consulted. Continue IV antibiotics. General surgery following. 08/26/23: Continue antibiotics as noted above No change to current treatment plan 08/27/23: Continue with dressing changes and wound care Continue antibiotics as noted above General surgery following 08/28/2023: no change to current treatment plan (3) Hypertension: Code(s): I10 - Essential (primary) hypertension Status: Acute Assessment and Plan: 08/24/23: continue home meds 08/25/23: B/P 99
[2023-08-31] MEDS: HYDROcodone/acetaminophen (*CRX) 10-325 MG TABLET PO ×2 (09:03→15:31)
--- NOTE | 2023-08-31 10:16 | PCNWS ---
Weekly nutritional screen. Patient is tolerating current Heart healthy diet with adequate intake at 75-100% of meals. No weight loss reported. No nutritional needs at this time.
--- NOTE | 2023-08-31 13:18 | PM.PNORT ---
Progress Note: A&P Assessment and Plan (1) Cellulitis of right leg: Code(s): L03.115 - Cellulitis of right lower limb Status: Acute Assessment and Plan: Aspiration yesterday. Cultures pending. Appears to be in fluid of from the prepatellar bursa is thus the area of the aspirate done. Continued improvement in right leg erythema and swelling. Fluid collection removed by radiology yesterday. Gram stain and cultures pending. Will follow labs. Recommend PT/OT. Patient refusing PT as she is able to ambulate on her own. WBAT. OOB to chair. Ice Knee. Antibiotics per medicine team. Pain control. Subjective Subjective Date/Time Seen: 08/31/23 9:18 Principal diagnosis: Right leg cellulitis Interval history: Fluid aspiration done yesterday. Pain over the anterior knee. Continues to report right knee pain. No relief despite aspiration. Exam Const: General: healthy appearing; No in distress or confusion Orientation/consciousness: oriented to person, oriented to place, oriented to time and No confusion HENMT: Head: normal to inspection, normocephalic and atraumatic Eyes: Conjunctivae: conjunctivae normal Sclera: sclerae normal Neck: Neck: supple and nontender Resp: Effort & Inspection: normal respiratory effort and no audible wheezes Cardio: Rate: regular rate Rhythm: regular rhythm Skin: General skin exam: no rashes or lesions noted Neuro: General: oriented to person, oriented to place, oriented to time and No confusion Extrem: Right upper extremity: normal to inspection Left upper extremity: normal to inspection Right lower extremity: hip/thigh Details: normal ROM; no tenderness, knee Details: tenderness (anterior and medial joint line ) Location: of the medial joint line (moderate ) and of the pre-patellar area (moderate ), swelling (peripatellar and medial joint ), abnormal ROM (active range of motion -10 degrees extension, 110 degrees flexion) Details: pain with active ROM during Details: in extension and in flexion, knee ligament exam normal Details: anterior drawer test normal, posterior drawer test normal, valgus stress test normal and Zena?s test normal, knee ligament exam abnormal Details: varus stress test normal (painful medial ) and Aggie's Test Details: positive medially and foot Details: normal capillary refill, toes with normal ROM, vascular exam Details: dorsalis pedis pulse present and motor-sensory exam Details: light-touch normal; no tenderness; no edema Left lower extremity: normal to inspection, normal capillary refill and knee Details: normal ROM (Active extension 5, flexion 130) and knee ligament exam normal; no tenderness Other: Erythema over the anterior aspect of the right knee improved. Tender to palpation. Able to flex and extend knee. Moves ankles and toes. Good sensation to the touch. Good capillary refill. Psych: Affect: normal affect Objective Data Vital Signs Vital Signs: Vital Signs - 24 hr 08/30/23 14:00 08/30/23 20:00 08/30/23 22:00 Temperature 98.0 F 98.3 F Pulse Rate 78 80 Respiratory Rate 18 18 Blood Pressure 121/78 108/63 Pulse Oximetry 97 98 Oxygen Delivery Room Air 08/31/23 06:00 08/31/23 08:00 Temperature 98.0 F Pulse Rate 74 Respiratory Rate 18 Blood Pressure 110/70 Pulse Oximetry 99 Oxygen Delivery Room Air Intake/Output Intake/Output: Intake & Output 08/28/23 08/29/23 08/30/23 08/31/23 23:59 23:59 23:59 23:59 Intake Total 1632 6415 057 9199 Output Total 20 Balance 1632 2445 765 3483 Meds/Results Medications: Active Medications Generic Name Dose Route Start Last Admin Trade Name Freq PRN Reason Stop Dose Admin Hydrocodone Bitart/Acetaminophen 1 - 2 tab 08/26/23 12:13 08/31/23 09:03 Hydrocodone/Acetaminophen (*Crx) 10-325 Mg Tablet PO 2 tab Q4H PRN Administration Pain Rated 4-10 Collagenase 1 applic 08/27/23 09:00 08/31/23 08:56 Collagenase Oint 30 Gm Tube T
[2023-08-31 14:00] VITALS: BP 130/57; PULSE 71; RESP 18; TEMP 36.2; O2SAT 96
[2023-08-31] MEDS: AMOXICILLIN/CLAVULANATE K 875-125 MG TAB 1 TABLET PO (17:38)
[2023-08-31 22:00] VITALS: BP 114/67; PULSE 52; RESP 18; TEMP 36.8; O2SAT 100
[2023-09-01] MEDS: HYDROcodone/acetaminophen (*CRX) 10-325 MG TABLET PO ×4 (05:54→20:51)
[2023-09-01 06:00] VITALS: BP 114/63; PULSE 83; RESP 17; TEMP 37.2; O2SAT 97
[2023-09-01 06:16] LABS: Basophils Percent Auto 0.6 % (0.2-1.2); Eosinophils Absolute Auto 0.2 K/mm3 (0-0.3); Eosinophils Percent Auto 2.5 % (0-4.4); Hematocrit 31.9 % (37.0-47.0); Hemoglobin 9.4 g/dL (12.0-15.0); Immature Granulocyte Absolute 0.02 K/mm3 (0.00-0.031); Immature Granulocyte Percent A 0.3 % (0-0.5); Lymphocytes Absolute Auto 3.06 K/mm3 (0.9-3.2); Mean Corpuscular HGB Conc 29.5 g/dl (32-36); Mean Corpuscular Hemoglobin 27.2 pg (26-34); Mean Corpuscular Volume 92.2 fl (80-100); Mean Platelet Volume 8.7 fl (7.4-10.4); Monocytes Absolute Auto 0.6 K/mm3 (0.1-0.6); Monocytes Percent Auto 7.9 % (2.6-8.5); Neutrophils Absolute Auto 3.3 K/mm3 (1.3-6.7); Neutrophils Percent Auto 45.7 % (45.5-73.1); Platelet Count Result 406 k/mm3 (150-375); Red Blood Count 3.46 M/mm3 (4.2-5.4); Red Cell Distribution Width 16.2 % (11.5-14.5); White Blood Count 7.1 K/mm3 (4.5-10.0)
[2023-09-01 06:26] LABS: Alanine Aminotransferase 15 U/L (6-35); Albumin Level 2.9 g/dL (3.5-5.1); Alkaline Phosphatase 94 U/L (38-126); Anion Gap -1 mmol/L (8-16); Aspartate Amino Transferase 21 U/L (14-36); Bilirubin,Total 0.2 mg/dL (0.2-1.3); Blood Urea Nitrogen 7 mg/dL (7-17); Calcium 8.6 mg/dL (8.4-10.2); Carbon Dioxide 29 mmol/L (22-30); Chloride 105 mmol/L (98-107); Estimated CRCL calculation 120 ml/min; Estimated Glomerular Filt Rate > 60; Glucose 89 mg/dL (65-110); Sodium 133 mmol/L (137-145)
[2023-09-01] MEDS: ENOXAPARIN 40 MG/0.4 ML SYRINGE SUB-Q (10:04)
[2023-09-01] MEDS: CYCLOBENZAPRINE HCL 10 MG TABLET PO (10:04)
[2023-09-01] MEDS: AMOXICILLIN/CLAVULANATE K 875-125 MG TAB 1 TABLET PO ×2 (10:04→20:51)
[2023-09-01] MEDS: POTASSIUM CHLORIDE 20 MEQ ER TABLET 40 MEQ PO (10:04)
[2023-09-01] MEDS: LINEZOLID 600 MG TABLET PO ×2 (10:04→20:52)
[2023-09-01] MEDS: FERROUS GLUCONATE 324 MG TABLET PO (10:05)
[2023-09-01] MEDS: PANTOPRAZOLE 40 MG TABLET PO (10:05)
[2023-09-01] MEDS: hydroCHLOROthiazide 25 MG TABLET PO (10:05)
[2023-09-01] MEDS: MULTIVITAMINS THERAPEUTIC TAB (*BKC) 1 TABLET PO ×2 (10:05→16:30)
--- NOTE | 2023-09-01 13:57 | PM.IMPN ---
Progress Note: A&P Assessment and Plan (1) Cellulitis of right leg: Code(s): L03.115 - Cellulitis of right lower limb Status: Acute Assessment and Plan: Patient presented to the ED due to right lower extremity wound and pain control. wound consulted for management General surgery consulted seen and recommending topical enzymatic debridement of her two leg wounds. Vanc and Ampicillin (08/24) -- Vanc changed to linezolid (08/26) and ampicillin changed to Augmentin (08/31) Ortho consulted due to knee pain Ice, elevation and compression for knee Analgesics PRN (2) Wound of right lower extremity: Qualifiers: Encounter type: subsequent encounter Qualified Code(s): S81.801D - Unspecified open wound, right lower leg, subsequent encounter Code(s): S81.801A - Unspecified open wound, right lower leg, initial encounter Status: Acute Assessment and Plan: Wound consulted for management Gen surgery consulted and following See above (3) Right knee pain: Code(s): M25.561 - Pain in right knee Status: Acute Assessment and Plan: Pt presented with R knee pain. Pain not improving with analgesics and antiboitic therapy Ortho consulted. MRI of right knee revealed moderate tendinopathy and mild partial tear of the lateral patellar insertion of the distal quadriceps tendon, A peripheral enhancement at a 8.4x 5.1x 5.2 cm complex lobular fluid collection in the deep subcutaneous fat at the anterior lateral aspect of the knee in close proximity to the quadriceps tendon tear most likely representing an associated posttraumatic hematoma versus abscess, mild patellofemoral osteoarthritis. Discussed findings with orthopedic surgeon who states that she needs to go to Radiology to have her knee drained. 20ml of fluid drained with the US guided needle aspiration Cultures came back positive for Bacteroides fragilis group (4) Hypertension: Code(s): I10 - Essential (primary) hypertension Status: Acute Assessment and Plan: continue home meds (5) Obesity (BMI 35.0-39.9 without comorbidity): Code(s): E66.9 - Obesity, unspecified Status: Chronic Assessment and Plan: Lifestyle and diet modifications Subjective Date/time seen: 09/01/23 13:57 Interval history: Patient continued to have right knee pain. Other than this she is doing well. She has no complaints of her right lower extremity wound which is wrapped and without pain. She denies any active fevers, nausea, vomiting, chest pain shortness a breath. She still having difficulty with range of motion of the right knee. Able to walk around the hospital floor and get to the bathroom. Exam Narrative: GENERAL: Comfortable, no acute distress, obese HENMT: moist mucous membranes EYES: EOM intact b/l NECK: no lymphadenopathy RESPIRATORY: clear to auscultation CARDIO: RRR GI: soft, nontender, bowel sounds present SKIN: no rashes EXTREMITIES: Right knee erythema, warm to the touch and swelling. Objective Data Vital Signs Vital Signs: Vital Signs - 24 hr 08/31/23 14:00 08/31/23 22:00 08/31/23 20:00 Temperature 97.2 F L 98.3 F Pulse Rate 71 52 L Respiratory Rate 18 18 Blood Pressure 130/57 L 114/67 Pulse Oximetry 96 100 Oxygen Delivery Room Air 09/01/23 06:00 Temperature 99.0 F Pulse Rate 83 Respiratory Rate 17 Blood Pressure 114/63 Pulse Oximetry 97 Oxygen Delivery Intake/Output Intake/Output: Intake & Output 08/29/23 08/30/23 08/31/23 09/01/23 23:59 23:59 23:59 23:59 Intake Total 4773 903 8059 522 Output Total 20 Balance 5716 241 8616 522 Meds/Results Medications: Active Medications Generic Name Dose Route Start Last Admin Trade Name Freq PRN Reason Stop Dose Admin Hydrocodone Bitart/Acetaminophen 1 - 2 tab 08/26/23 12:13 09/01/23 11:58 Hydrocodone/Acetaminophen (*Crx) 10-325 Mg Tablet PO 2 tab
[2023-09-01 14:00] VITALS: BP 103/45; PULSE 90; RESP 14; TEMP 36.5; O2SAT 97
[2023-09-01] MEDS: COLLAGENASE OINT 30 GM TUBE 1 APPLIC TOPICAL (16:27)
[2023-09-01 20:35] VITALS: BP 97/56; PULSE 90; RESP 18; TEMP 36.6; O2SAT 96
[2023-09-02 05:11] VITALS: BP 110/65; PULSE 76; RESP 18; TEMP 36.6; O2SAT 99
[2023-09-02] MEDS: HYDROcodone/acetaminophen (*CRX) 10-325 MG TABLET PO ×3 (05:41→15:02)
[2023-09-02 06:01] LABS: Basophils Percent Auto 0.8 % (0.2-1.2); Eosinophils Absolute Auto 0.1 K/mm3 (0-0.3); Eosinophils Percent Auto 2.7 % (0-4.4); Hematocrit 32.4 % (37.0-47.0); Hemoglobin 9.4 g/dL (12.0-15.0); Immature Granulocyte Absolute 0.01 K/mm3 (0.00-0.031); Immature Granulocyte Percent A 0.2 % (0-0.5); Lymphocytes Absolute Auto 2.67 K/mm3 (0.9-3.2); Mean Corpuscular Hemoglobin 27.2 pg (26-34); Mean Corpuscular Volume 93.9 fl (80-100); Mean Platelet Volume 8.4 fl (7.4-10.4); Monocytes Absolute Auto 0.5 K/mm3 (0.1-0.6); Monocytes Percent Auto 9.7 % (2.6-8.5); Neutrophils Absolute Auto 1.9 K/mm3 (1.3-6.7); Neutrophils Percent Auto 35.6 % (45.5-73.1); Platelet Count Result 342 k/mm3 (150-375); Red Blood Count 3.45 M/mm3 (4.2-5.4); Red Cell Distribution Width 16.5 % (11.5-14.5); White Blood Count 5.2 K/mm3 (4.5-10.0)
[2023-09-02 06:10] LABS: Alanine Aminotransferase 15 U/L (6-35); Albumin Level 2.7 g/dL (3.5-5.1); Alkaline Phosphatase 86 U/L (38-126); Anion Gap 1 mmol/L (8-16); Aspartate Amino Transferase 20 U/L (14-36); Bilirubin,Total 0.2 mg/dL (0.2-1.3); Blood Urea Nitrogen 8 mg/dL (7-17); Calcium 8.1 mg/dL (8.4-10.2); Carbon Dioxide 30 mmol/L (22-30); Chloride 106 mmol/L (98-107); Estimated CRCL calculation 120 ml/min; Estimated Glomerular Filt Rate > 60; Glucose 97 mg/dL (65-110); Potassium 3.9 mmol/L (3.4-5.0); Sodium 137 mmol/L (137-145)
[2023-09-02 07:29] LABS: Hypochromasia 1+ (NORMAL); Platelet Estimate Adequate (Adequate); Schistocytes None Seen (NORMAL)
[2023-09-02] MEDS: AMOXICILLIN/CLAVULANATE K 875-125 MG TAB 1 TABLET PO (08:40)
[2023-09-02] MEDS: MULTIVITAMINS THERAPEUTIC TAB (*BKC) 1 TABLET PO (08:40)
[2023-09-02] MEDS: POTASSIUM CHLORIDE 20 MEQ ER TABLET 40 MEQ PO (08:40)
[2023-09-02] MEDS: FERROUS GLUCONATE 324 MG TABLET PO (08:41)
[2023-09-02] MEDS: PANTOPRAZOLE 40 MG TABLET PO (08:41)
[2023-09-02] MEDS: hydroCHLOROthiazide 25 MG TABLET PO (08:41)
[2023-09-02] MEDS: CYCLOBENZAPRINE HCL 10 MG TABLET PO (08:41)
[2023-09-02] MEDS: ENOXAPARIN 40 MG/0.4 ML SYRINGE SUB-Q (10:00)
[2023-09-02] MEDS: COLLAGENASE OINT 30 GM TUBE 1 APPLIC TOPICAL (12:20)
--- NOTE | 2023-09-02 13:23 | PM.DS ---
DS: Admitting Diagnosis Discharge Date 09/02/23 Admitting Diagnosis right lower extremity cellulitis DS: Discharge Diagnosis Discharge Diagnosis (1) Cellulitis of right leg: Code(s): L03.115 - Cellulitis of right lower limb Status: Acute (2) Wound of right lower extremity: Qualifiers: Encounter type: subsequent encounter Qualified Code(s): S81.801D - Unspecified open wound, right lower leg, subsequent encounter Code(s): S81.801A - Unspecified open wound, right lower leg, initial encounter Status: Acute (3) Right knee pain: Code(s): M25.561 - Pain in right knee Status: Acute (4) Hypertension: Code(s): I10 - Essential (primary) hypertension Status: Acute (5) Obesity (BMI 35.0-39.9 without comorbidity): Code(s): E66.9 - Obesity, unspecified Status: Chronic DS: Summary Hospital Course Hospital Course: This is a 57-year-old female past medical history of morbid obesity, chronic bilateral lower extremity lymphedema, neuroendocrine tumor in remission, hypertension, chronic right lower extremity multiple ulcers for 6+ months that presents to the ED on 08/23/2023 due to right lower extremity tenderness, warmth, redness to lateral aspect of the lower extremity as well as pain surrounding her knee. Wound Care was consulted. General surgery consulted for possible I and D. Patient was originally started on vancomycin and Unasyn that was then transition to vancomycin and ampicillin. Orthopedics consulted due to possible knee aspiration. Is advised to ice, elevate and warm compresses to the knee. Patient's right lower extremity wound improved with wound care. Patient was transitioned off of vancomycin and on to linezolid and she continued ampicillin for several more days. On 08/31/2023 patient was transition to Augmentin from ampicillin. She completed course of linezolid while in the hospital. Patient continued to have ongoing knee pain and she received an MRI on 08/28/2023 showing a 8.4x 5.1x 5.2 cm complex lobular fluid collection in the deep subcutaneous fat at the anterior lateral aspect of the knee in close proximity to the quadriceps tendon tear most likely representing an associated posttraumatic hematoma versus abscess, mild patellofemoral osteoarthritis. This was discussed with orthopedic team and they advised aspiration of the knee. Wound cultures were sent and cultures came back positive for Bacteroides fragilis. Discussed with ID pharmacist about patient's treatment. Due to patient being treated for several days and having continued ongoing pain will do a 3 week treatment from a source control of Augmentin and Flagyl. Patient was able to regain her mobility and pain more controlled. Advised patient follow-up with her PCP in 1-2 weeks. Her labs and vital signs are stable and she is medically clear for discharge at this time. Time Spent with Patient Time attestation: Total time spent providing and/or coordinating discharge services: Exam Narrative: GENERAL: Comfortable, no acute distress, obese HENMT: moist mucous membranes EYES: EOM intact b/l NECK: no lymphadenopathy RESPIRATORY: clear to auscultation CARDIO: RRR GI: soft, nontender, bowel sounds present SKIN: no rashes EXTREMITIES: Right knee erythema, warm to the touch and swelling -- Improved. DS: Data Data Completed and Pending Labs on day of discharge: Labs from last 24 hours 09/02/23 05:34 WBC 5.2 RBC 3.45 L Hgb 9.4 L Hct 32.4 L MCV 93.9 MCH 27.2 MCHC 29.0 L RDW 16.5 H Plt Count 342 MPV 8.4 Immature Gran % (Auto) 0.2 Neut % (Auto) 35.6 L Lymph % (Auto) 51.0 H [place] % (Auto) 9.7 H Eos % (Auto) 2.7 Baso % (Auto) 0.8 Lymph # (Auto) 2.67 [place] # (Auto) 0.5 Eos # (Auto) 0.1 Baso # (Auto) 0.0 Abs Immat Gran (auto) 0.01 Absolute Neuts (auto) 1.9 Absolute Nucleated RBC 0.0 Nucleated RBC % 0.0 Platelet Estimate Adequate Hypochromasia 1+ [place]
--- NOTE | 2023-09-02 13:44 | PM.PNGS ---
Progress Note: A&P Assessment and Plan (1) Wound of right lower extremity: Qualifiers: Encounter type: subsequent encounter Qualified Code(s): S81.801D - Unspecified open wound, right lower leg, subsequent encounter <ESTEPHANIE Albarran - Last Filed: 09/02/23 15:22> Code(s): S81.801A - Unspecified open wound, right lower leg, initial encounter <ESTEPHANIE Albarran - Last Filed: 09/02/23 15:22> Status: Acute <ESTEPHANIE Albarran - Last Filed: 09/02/23 15:22> Assessment and Plan: Right lower extremity wounds improving with local wound care. No indication for surgical intervention at this time. Okay to discharge patient from a surgical standpoint and continue silver gel and Santyl dressing changes. She is being discharged with home health for wound care and can follow-up with the wound clinic she follows at [place]. Management of cellulitis and right knee pain as per Orthopedic surgery. <ESTEPHANIE Albarran - Last Filed: 09/02/23 15:22> Assessment and Plan: I have discussed the patient's case and plan of care with Dr. Mccloud. <ESTEPHANIE Albarran - Last Filed: 09/02/23 15:22> Subjective Subjective Date/Time Seen: 09/02/23 13:44 <ESTEPHANIE Albarran - Last Filed: 09/02/23 15:22> Patient reports: afebrile <ESTEPHANIE Albarran - Last Filed: 09/02/23 15:22> Interval history: This is a 57 year old woman we are following for chronic nonhealing wounds in the right lower extremity. She additionally has redness, swelling, and pain over the right knee that is being followed by Ortho. She is seen today. Chart reviewed. Her nurse had her when she was first admitted and states her wounds look much better. She is only complaining of right knee pain but is able to ambulate. She had aspiration of a right lower extremity fluid collection in radiology yesterday without much relief. Cultures showing growth of bacteroides fragilis. No complaints with her right lower extremity wounds, which she feels are looking better since admission. <ESTEPHANIE Albarran - Last Filed: 09/02/23 15:22> Exam Narrative: Right lower leg dressing removed. There are two open wound on the medial lower leg and one open wound on the lateral lower leg. There is very minimal yellow slough in the largest open wound on the medial lower leg, but 90% of the wound bed appears pink with some granulation tissue forming. Other open wounds appear pink and have some granulation tissue forming. No necrotic tissue and no purulent drainage or odor. No erythema around the wounds and she was nontender when cleaning the wounds. <ESTEPHANIE Albarran - Last Filed: 09/02/23 15:22> Objective Data Vital Signs Vital Signs: Vital Signs - 24 hr 09/01/23 14:00 09/01/23 20:35 09/01/23 20:00 Temperature 97.7 F 97.9 F Pulse Rate 90 90 Respiratory Rate 14 18 Blood Pressure 103/45 L 97/56 L Pulse Oximetry 97 96 Oxygen Delivery Room Air 09/02/23 05:11 09/02/23 08:00 Temperature 97.9 F Pulse Rate 76 Respiratory Rate 18 Blood Pressure 110/65 Pulse Oximetry 99 Oxygen Delivery Room Air <ESTEPHANIE Albarran - Last Filed: 09/02/23 15:22> Intake/Output Intake/Output: Intake & Output 08/30/23 08/31/23 09/01/23 09/02/23 23:59 23:59 23:59 23:59 Intake Total 618 2430 984 822 Output Total 20 0 Balance 598 2430 984 822 <ESTEPHANIE Albarran - Last Filed: 09/02/23 15:22> Meds/Results Medications: Active Medications Generic Name Dose Route Start Last Admin Trade Name Freq PRN Reason Stop Dose Admin Hydrocodone Bitart/Acetaminophen 1 - 2 tab 08/26/23 12:13 09/02/23 08:46 Hydrocodone/Acetaminophen (*Crx) 10-325 Mg Tablet PO 2 tab Q4H PRN Administration Pain Rated 4-10 Amoxicillin/Clavulanate Potassium 1 tablet 08/31/23 18:00 09/02/23 08:40 Amoxicillin/Clavulanate K 875-125 Mg Tab PO 09/05/23 21:01 1 tablet Q12HR [facility] Administration [facility]
[2023-09-02 14:00] VITALS: BP 112/51; PULSE 85; RESP 14; TEMP 36.8; O2SAT 99
== END 2023-09-02 16:50 | disposition home health service (06) | DRG 603 ==
LOC: ANHED 19:51 → ANH3MEDSUR 20:48
PROVIDERS: Nurse Practitioner; Nurse Practitioner Acute Care; Physician Assistant; Admitting Provider Internal Medicine; Emergency Provider Physician Assistant; PCP Family Medicine; Visit Provider Internal Medicine
DX: L03.115 Cellulitis of right lower limb (principal); L97.919 Non-pressure chronic ulcer of unspecified part of right lower leg with unspecified severity; S76.111A Strain of right quadriceps muscle, fascia and tendon, initial encounter; L02.415 Cutaneous abscess of right lower limb; B96.6 Bacteroides fragilis [B. fragilis] as the cause of diseases classified elsewhere; I10 Essential (primary) hypertension; I89.0 Lymphedema, not elsewhere classified; K57.30 Diverticulosis of large intestine without perforation or abscess without bleeding; J45.909 Unspecified asthma, uncomplicated; M17.11 Unilateral primary osteoarthritis, right knee; E66.9 Obesity, unspecified; Z85.038 Personal history of other malignant neoplasm of large intestine; Z98.84 Bariatric surgery status
CPT/HCPCS: 10160; 36415; 73564; 73723; 76942; 80048; 80053; 80202; 84550; 85025; 85027; 85610; 85652; 85730; 86140; 86850; 86900; 86901; 87040; 87070; 87075; 87076; 87205; 87502; 87641; 93005; 96374; 96375; 96376; 97161; 97165; 99285; A9270; A9577; G0378; J0295; J1170; J1650; J2543; J3370; J7040